=== PATIENT | male | born 1945 | race Caucasian/White ===

== ENCOUNTER → 2016-09-20 | Outpatient (CLI) | payer MEDICARE, MEDICAID ==
[~2016-09-20] MED LIST: BUDE10.2 IH; GLIP-30 PO; LISI1TAB6 PO; METF1000 PO; PANT40TA2 PO; RT-ALBUINH IH; SIMV40TA4 PO; SUCR1TAB36 PO
--- NOTE | 2016-09-20 14:08 | Diagnostic Imaging Report ---
EXAMINATION: Renal ultrasound. INDICATION: History of left renal cell carcinoma, status post left nephrectomy. FINDINGS: The right kidney is 11 cm in length with no hydronephrosis or focal lesion. The urinary bladder appears unremarkable. The left nephrectomy bed demonstrates no underlying mass or fluid collection. IMPRESSION: Post left nephrectomy changes. Normal appearance of the right kidney. Dictated by: Dictated on workstation # [id number]
== END ==
LOC: RAD 13:32
PROVIDERS: ATTEND Nurse Practitioner
DX: N18.3 Chronic kidney disease, stage 3 (moderate) (principal); E11.22 Type 2 diabetes mellitus with diabetic chronic kidney disease; E78.5 Hyperlipidemia, unspecified; J44.9 Chronic obstructive pulmonary disease, unspecified; K21.9 Gastro-esophageal reflux disease without esophagitis; B17.10 Acute hepatitis C without hepatic coma
CPT/HCPCS: 76770

== ENCOUNTER → 2017-07-22 | Outpatient (CLI) | payer MEDICARE, MEDICAID ==
--- NOTE | 2017-07-22 12:26 | Diagnostic Imaging Report ---
CLINICAL INDICATION: Patient with chronic low back pain with left leg pain, numbness and tingling. No known injury. EXAM: MRI of the lumbar spine performed without IV contrast. Sequences include sagittal T2, sagittal T1, sagittal T2 fat-sat, and axial T2. COMPARISON: MRI of the lumbar spine without contrast dated 10/24/2015. FINDINGS: Lumbar spine has normal alignment with no acute fracture or dislocation. There is small amount of Modic type I degenerative signal changes involving the L5-S1 level. Otherwise, the lumbar vertebra have normal T1-T2 signal. Limited visualization of the distal thoracic spinal cord, conus medullaris, and cauda equina nerve roots are unremarkable. Conus medullaris tip is seen at the L1-L2 intervertebral level. There is no significant paraspinal soft tissue abnormality. The left kidney is not seen and may be surgically absent, as prior MRI showed a mass on the kidney. There is multilevel lumbar spine degenerative disease with hypertrophic spurs and facet arthropathy seen. T12-L1: There is interval development of minimal ligamentum flavum buckling. There is no significant central spinal canal or neural foramen narrowing. L1-L2: There is no significant change to the diffuse disc bulge with mild loss of intervertebral disc height. There is progression of ligamentum flavum buckling with mild bilateral facet arthropathy. There is mild central canal narrowing which has progressed. There is mild right neural foramen narrowing which is stable and no significant left neural foramen narrowing. L2-L3: There is minimal ligamentum flavum buckling. There is a stable mild diffuse disc bulge with hypertrophic anterior spurs. There is slight increased size of the small Schmorl's node involving the inferior L2 endplate. There is mild central canal narrowing which has progressed. There is mild to moderate right neural foramen narrowing which has slightly progressed and mild left neural foramen narrowing which has slightly progressed. L3-L4: There is development of mild ligamentum flavum buckling. There is moderate bilateral facet arthropathy again seen. There is no significant change to the diffuse disc bulge with disc spurs extending into the foraminal regions. There is moderate bilateral neural foramen narrowing which is stable. There is mild central canal narrowing. L4-5: There is interval increased size of the diffuse disc bulge with increased disc spurs in the foraminal regions bilaterally. There is bilateral facet arthropathy and progression of ligamentum flavum buckling. There is severe central canal narrowing which has progressed. There is severe bilateral neural foramen narrowing which has slightly progressed on the right, but is grossly stable on the left. L5-S1: There is moderate to severe bilateral facet arthropathy/hypertrophy. Stable mild disc bulging in the foraminal regions bilaterally (left side more than the right) there is mild right neural foramen narrowing and severe left neural foramen narrowing which is not significantly changed. There is no significant central canal narrowing. IMPRESSION: 1: There is slight progression of multilevel lumbar spine degenerative disc disease with the L4-L5 level progressed the most. This is described in detail above. 2: Likely surgically absent left kidney in the interim. Dictated by: Dictated on workstation # [id number]
== END ==
LOC: RAD 11:08
PROVIDERS: ATTEND Nurse Practitioner Family
DX: M48.07 Spinal stenosis, lumbosacral region (principal); M51.17 Intervertebral disc disorders with radiculopathy, lumbosacral region; M47.26 Other spondylosis with radiculopathy, lumbar region; M46.86 Other specified inflammatory spondylopathies, lumbar region
CPT/HCPCS: 72148

== ENCOUNTER 2018-02-09 14:18 | Observation (INO) | payer MEDICARE, MEDICAID ==
[~2018-02-09] VITALS: Ht 167.6 cm; Wt 73.9 kg
[~2018-02-09 14:18] MED LIST changes: +METF-399 PO; -METF1000 PO
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
--- OUTSIDE RECORDS SUMMARY | 2018-02-09 14:29 | XMS REPORT ---
Author Author RIANNA BRADY Organization [facility] Address [address] [place] [address] Care Team Providers Care Wood Room Hand Name Role Phone BRADYVANE FajardoELE Unavailable PROBLEMS Type Condition ICD9-CM Code ABA08-WB Code Onset Dates Condition Status SNOMED Code Problem Hallux rigidus M20.20 Active 657859249 Problem Other hammer toe(s) (acquired), right foot M20.41 Active 343413440 Problem Other hammer toe(s) (acquired), left foot M20.42 Active 82516063 Problem Chronic periodontitis K05.30 Active 0738861 Problem Vitamin D deficiency E55.9 Active 57531676 Problem Osteoarthritis of spine with radiculopathy, lumbar region M47.26 Active 907387311 Problem Stage 3 chronic kidney disease N18.3 Active 867662414 Problem Ventral hernia without obstruction or gangrene K43.9 Active 416229215 Problem Type 2 diabetes mellitus with diabetic neuropathy E11.40 Active 6226527444217 Problem DM neuro manif type II E11.49 Active 83379541 Problem Hallux valgus (acquired), right foot M20.11 Active 491883873 Problem Hyperlipidemia E78.5 Active 45212386 Problem Type 2 diabetes mellitus with hyperglycemia E11.65 Active [id number] Problem Thrombocytopenia D69.6 Active 270435799 Problem Peripheral neuropathy G62.9 Active 06694938 Problem GERD (gastroesophageal reflux disease) K21.9 Active 483132239 Problem OM (onychomycosis) B35.1 Active 557274993 Problem Hepatitis C B19.20 Active 30128495 Problem Hepatic lesion K76.9 Active 313038963 Problem COPD (chronic obstructive pulmonary disease) J44.9 Active 18396965 Problem Cirrhosis of liver without ascites, unspecified hepatic cirrhosis type K74.60 Active 31249834 ALLERGIES No Information ENCOUNTERS Encounter Location Date Diagnosis [facility] [address] [facility] [id number] [address] Nov, [facility] [id number] [place] [address] 16696- 1593 Oct, Type 2 diabetes mellitus with diabetic neuropathy E11.40 ; Elevated serum creatinine R79.89 ; Peripheral neuropathy G62.9 ; COPD (chronic obstructive pulmonary disease) J44.9 ; Hyperlipidemia E78.5 ; GERD ( gastroesophageal reflux disease) K21.9 and 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.3720 [facility] [id number] [place] [address] 12451- 5479 August, Onychomycosis B35.1 and Type 2 diabetes mellitus with diabetic neuropathy E11.40 [place] [id number] [place] [address] 25234- 7348 August, Type 2 diabetes mellitus with hyperglycemia E11.65 [place] [address] [address] [id number] [place] [address] 28777- 8685 August, Chronic kidney disease, stage III (moderate) N18.3 [place] [address] [id number] [place] [address] 13485- 5340 August, Chronic kidney disease, stage III (moderate) N18.3 [facility] [id number] [place] [address] [id number] Jul, Dental examination Z01.20 [facility] [id number] [place] [address] 84528- 6401 Jun, [facility] [id number] [place] [address] 39453- 6429 Jun, [facility] [id number] [place] [address] 46812- 1979 Jun, [place] [address] [id number] [place] [address] 21923- 7250 Jun, Chronic periodontitis K05.30 ; Dental caries K02.9 and Dental examination Z01.20 [facility] [id number] [place] [address] 40268- 9998 Jun, Type 2 diabetes mellitus with hyperglycemia [...] Ventral hernia without obstruction or gangrene K43.9 [place] [address] 78901- 7123 Jun, COPD (chronic obstructive pulmonary disease) J44.[address] 77125- 9970 Jun, Type 2 diabetes mellitus with diabetic neuropathy E11.40 and Onychomycosis B35.[address] 24882- 9133 May, Hyperlipidemia E78.5 ; Cirrhosis of liver without ascites, unspecified hepatic cirrhosis type K74.60 ; Renal cell carcinoma, left C64.2 ; Hepatic lesion K76.9 ; Hepatitis C B19.20 ; Type 2 diabetes mellitus with hyperglycemia E11.65 and COPD (chronic obstructive pulmonary disease) J44.9 [place] [id number] [place] [address] 67468- 4947 May, Hyperlipidemia E78.5 and Chronic kidney disease, stage III ( moderate) N18.3 [place] [address] 91109- 3254 Apr, Type 2 diabetes mellitus with diabetic neuropathy E11.40 ; Hyperlipidemia E78.5 ; COPD (chronic obstructive pulmonary disease) J44.9 and Osteoarthritis of spine with radiculopathy, lumbar region M47.26 [id number] [place] [address] 79976- 8520 Apr, [facility] [id number] [place] [address] 95114- 5001 Mar, Type 2 diabetes mellitus with diabetic neuropathy E11.40 ; Hyperlipidemia E78.5 ; COPD (chronic obstructive pulmonary disease) J44.9 and Osteoarthritis of spine with radiculopathy, lumbar region M47.26 [facility] [id number] [place] [address] 06956- 5495 Mar, Onychomycosis B35.1 and DM neuro manif type II E11.49 [place] [address] 82978- 6732 Mar, Hepatitis C B19.20 [place] [id number] [place] [address] 15957- 8345 Mar, Hepatitis C B19.20 [place] [id number] [place] [address] 49024- 6848 Jan, COPD (chronic obstructive pulmonary disease) J44.9 [place] [id number] [place] [address] 42108- 0817 Jan, [place] [id number] [place] [address] 25050- 0003 Nov, Elevated serum creatinine R79.89 [place] [id number] [place] [address] 57946- 9213 Nov, Elevated serum creatinine R79.89 [place] [address] [id number] [place] [address] 36019- 6145 Nov, [place] [address] [id number] [place] [address] 57114- 7686 Nov, Onychomycosis B35.1 ; Hallux valgus (acquired), right foot M20.11 and DM neuro manif type II E11.49 [place] [address] [id number] [place] [address] 21529- 8976 Nov, [place] [id number] [place] [address] 44040- 6024 Oct, Type 2 diabetes mellitus with hyperglycemia E11.65 ; Hyperlipidemia E78.5 ; COPD (chronic obstructive pulmonary disease) J44.9 and GERD (gastroesophageal reflux disease) K21.9 [place] [id number] [place] [address] 82840- 1080 Sep, COPD (chronic obstructive pulmonary disease) J44.9 ; Type 2 diabetes mellitus with hyperglycemia E11.65 ; Hyperlipidemia E78.5 and GERD ( gastroesophageal reflux disease) K21.9 [place] [address] [id number] [place] [address] 97842- 1135 August, [place] [address] [place] [id number] [place] [address] 52528- 8500 August, Type 2 diabetes mellitus with hyperglycemia E11.[address] 25347- 4617 August, Onychomycosis B35.1 ; Other hammer toe(s) (acquired), right foot M20.41 and Type 2 diabetes mellitus with diabetic neuropathy E11.40 [place] [id number] [place] [address] 53660- 6760 Jul, Elevated serum creatinine R79.89 [place] [id number] [place] [address] 99077- 6405 Jul, COPD (chronic obstructive pulmonary disease) J44.9 and Ventral hernia without obstruction or gangrene K43.9 [place] [address] [address] [id number] [place] [address] 11326- 9160 Jul, Elevated serum creatinine R79.89 [place] [address] [id number] [place] [address] 19201- 2464 Jun, [place] [address] [id number] [place] [address] 46792- 8445 Jun, [place] [address] [place] [address]- 5031 Jun, Type 2 diabetes mellitus with hyperglycemia E11.65 ; Hyperlipidemia E78.5 ; GERD (gastroesophageal reflux disease) K21.9 and Hepatitis C B19.20 [place] [address] 31996- 7817 Jun, Hepatitis C B19.20 [place] [address] 91900- 3212 Jun, Type 2 diabetes mellitus with hyperglycemia E11.65 ; Hyperlipidemia E78.5 ; COPD (chronic obstructive pulmonary disease) J44.9 ; GERD (gastroesophageal reflux disease) K21.9 ; Peripheral neuropathy G62.9 and Hepatitis C B19.20 [place] [address] 38843- 4997 Jun, Onychomycosis B35.1 ; Hallux rigidus M20.20 ; Other hammer toe(s) (acquired), left foot M20.42 and Other hammer toe(s) (acquired), right foot M20.41 [place] [address] 40517- 4961 Jun, Type 2 diabetes mellitus with hyperglycemia E11.65 and Hyperlipidemia E78.5 [place] [address] 21508- 0994 Mar, Hepatitis C B19.20 ; Hepatic lesion K76.9 and Cirrhosis of liver without ascites, unspecified hepatic cirrhosis type K74.60 [place] [address] [address] [id number] [place] [address] 16958- 9340 Mar, Onychomycosis B35.1 and Hallux rigidus M20.20 [place] [address] 23426- 1644 Dec, [address] 67727- 0876 Dec, Type 2 diabetes mellitus with hyperglycemia E11.65 ; Right leg injury, initial encounter S89.91XA ; Hyperlipidemia E78.5 ; COPD (chronic obstructive pulmonary disease) J44.9 ; GERD (gastroesophageal reflux disease) K21.9 ; Insomnia due to medical condition G47.01 and Renal cell carcinoma, left C64.2 [place] [address] 88029- 6399 Dec, [place] [address] 35587- 4769 Nov, Onychomycosis B35.1 and DM neuro manif type II E11.49 [place] [address] 65430- 5392 Oct, Hepatitis C B19.[address] 59512- 1497 Oct, Hepatic lesion K76.9 and Cirrhosis of liver without ascites , unspecified hepatic cirrhosis type K74.[address] 36769- 7532 Sep, Renal mass N28.89 ; Hepatic lesion K76.9 and Renal cell carcinoma, left C64.[address] 86446- 6338 Sep, Lesion of liver K76.[address] 44544- 9247 Sep, Renal mass, right N28.[address] 59897- 0232 Sep, Osteoarthritis of spine with radiculopathy, lumbar region M47.[address] 15028- 2151 August, Type 2 diabetes mellitus with hyperglycemia E11.65 ; Hyperlipidemia E78.5 ; Peripheral neuropathy G62.9 ; COPD (chronic obstructive pulmonary disease) J44.9 ; Dorsalgia, unspecified M54.9 ; Pain of left leg M79.605 and Foot pain, left M79.672 [place] [address] 19442- 9217 Jun, Hepatitis C B19.20 [place] [address] 50452- 1019 Jun, Onychomycosis B35.1 ; Hallux rigidus M20.20 and DM neuro manif type II E11.49 [place] [address] 93902- 9192 Jun, Hepatitis C B19.20 and Erectile dysfunction 607.[address] 77951- 2309 Jun, Type 2 diabetes mellitus with hyperglycemia E11.[address] 67615- 5666 Jun, Hepatitis C B19.20 [place] [address] 31389- 1654 Jun, [place] [address] 35781- 8275 Jun, Type 2 diabetes mellitus with hyperglycemia E11.65 [place] [address] 74961- 2474 Jun, Type 2 diabetes mellitus with hyperglycemia E11.65 ; Hyperlipidemia E78.5 ; COPD (chronic obstructive pulmonary disease) J44.9 and Hepatitis C B19.20 [place] [address] 44989- 8562 Jun, Type 2 diabetes mellitus with hyperglycemia E11.65 ; General medical exam Z00.00 ; Hyperlipidemia E78.5 ; COPD (chronic obstructive pulmonary disease) J44.9 ; Hepatitis C B19.20 ; GERD (gastroesophageal reflux disease) K21.9 ; OM (onychomycosis) B35.1 and Peripheral neuropathy G62.[address] 55566- 0919 Apr, COPD (chronic obstructive pulmonary disease) J44.9 ; Depression F32.9 ; Hyperlipidemia E78.5 and Type 2 diabetes mellitus with hyperglycemia E11.65 [facility] [id number] [place] [address] 85763- 8703 Apr, [facility] [id number] [place] [address] 15724- 6154 Mar, Type 2 diabetes mellitus with hyperglycemia E11.65 [facility] [id number] [place] [address] 40402- 7006 Mar, [facility] [id number] [place] [address] 93634- 4887 Mar, Type 2 diabetes mellitus with hyperglycemia E11.65 [facility] [id number] [place] [address] 26625- 4125 Jan, Type 2 diabetes mellitus with hyperglycemia E11.65 ; Type 2 diabetes mellitus with diabetic neuropathy E11.40 ; Chronic hepatitis C B18.2 ; COPD (chronic obstructive pulmonary disease) J44.9 ; Depression F32.9 and Black stool K92.1 [place] [address] [address] [id number] [place] [address] 47207- 4569 Jan, [facility] [id number] [place] [address] 11445- 2055 Jan, [place] [address] [address] [id number] [place] [address] 39100- 8733 Dec, [facility] [id number] [place] [address] 05557- 0681 Nov, Erectile dysfunction 607.84 [place] [address] [address] [id number] [place] [address] 38814- 9385 Nov, Depressive disorder, not elsewhere classified 311 [facility] [id number] [place] [address] 67279- 9268 Nov, Depressive disorder, not elsewhere classified 311 [facility] [id number] [place] [address] 20532- 7707 Nov, Pyelonephritis 590.80 [facility] [id number] [place] [address] 98059- 6544 Oct, Pyelonephritis 590.80 [facility] [id number] [place] [address] 62897- 4604 Oct, Right inguinal pain 789.09 [facility] [id number] [place] [address] 66881- 1702 Oct, [facility] [id number] [place] [address] 83941- 1601 Oct, Depressive disorder, not elsewhere classified 311 [facility] [address] 36815- 8509 Sep, Depressive disorder, not elsewhere classified 311 and No condition on Freeman II V71.09 [facility] [id number] [place] [address] 09721- 7987 Sep, Diabetes mellitus without mention of complication, type II or unspecified type, uncontrolled 250.02 and Right inguinal pain 789.09 [facility] [id number] [place] [address] 54785- 0031 Jul, [facility] [id number] [place] [address] 94524- 3555 Jul, [facility] [id number] [place] [address] 13478- 2553 May, [facility] [id number] [place] [address] 85292- 3375 Mar, [facility] [id number] [place] [address] 07318- 5773 Mar, [facility] [id number] [place] [address] 18481- 5024 Dec, [facility] [id number] [place] [address] 39534- 3928 Dec, [facility] [place] [facility] [address] [id number] [place] [address]- 8555 14 Oct, 2013 [facility] [place] [facility] [address] [id number] [place] [address]- 5652 14 Oct, 2013 [facility] [place] [facility] [address] [id number] [place] [address]- 6884 Oct, [facility] [place] [facility] [address] [id number] [place] [address]- 9439 Oct, [facility] [place] [facility] [address] [id number] [place] [address]- 0722 Sep, [facility] [place] [facility] [address] [id number] [place] [address]- 3994 Sep, [facility] [place] [facility] [address] [id number] [place] [address]- 8531 Jun, [facility] [place] [facility] [address] [id number] [place] [address]- 4020 Jun, [facility] [place] [facility] [address] [id number] [place] [address]- 6014 Jun, [facility] [place] [facility] [address] [id number] [place] [address]- 5422 Jun, [facility] [place] [facility] [address] [id number] [place] [address]- 5406 Jun, [facility] [place] [facility] [address] [id number] [place] [address]- 2445 Jun, [facility] [place] [facility] [address] [id number] [place] [address]- 8712 Jun, [facility] [place] [facility] [address] [id number] [place] [address]- 6301 Jun, [facility] [place] [facility] [address] [id number] [place] [address]- 2899 Apr, [facility] [place] [facility] [address] [id number] [place] [address]- 8359 Apr, [facility] [place] [facility] [address] [id number] [place] [address]- 6835 Apr, [facility] [place] [facility] [address] [id number] [place] [address]- 0821 Apr, [facility] [place] [facility] [address] [facility] [id number] [place] [address]- 2226 Apr, [facility] [place] [facility] [address] [id number] [place] [address]- 4232 Apr, [facility] [place] [facility] [address] [id number] [place] [address]- 3797 Apr, [facility] [place] [facility] [address] [id number] [place] [address]- 9515 Apr, [facility] [place] [facility] [address] [id number] [place] [address]- 0640 Apr, [facility] [place] [facility] [address] [id number], [place] [address]- 8332 Mar, [facility] [place] [facility] [address] [id number], [place] [address]- 0624 Mar, [facility] [place] [facility] [address] [id number], [place] [address]- 3511 Mar, [facility] [place] [facility] [address] [id number], [place] [address]- 9058 Mar, [facility] [place] [facility] [address] [id number], [place] [address]- 1037 Mar, [facility] [place] [facility] [address] [id number], [place] [address]- 4020 Mar, [facility] [place] [facility] [address] [id number], [place] [address]- 4242 Mar, [facility] [place] [facility] [address] [facility] [id number] 4183 Mar, [facility] [place] [facility] [address] [facility] [id number] [place] 9756 Mar, [facility] [address] [facility] [id number], [place] [address]- 0194 Mar, [facility] [address] [facility] [id number] 4330 Mar, [facility] [address] [facility] [id number] 2279 Mar, [facility] [address] [facility] [id number], [place] [address]- 5311 Mar, [facility] [address] [facility] [id number], [place] [address]- 6332 Mar, IMMUNIZATIONS No Known Immunizations SOCIAL HISTORY Never Assessed REASON FOR VISIT Prior Authorization PLAN OF CARE VITAL SIGNS MEDICATIONS Medication Instructions Dosage Frequency Start Date End Date Duration Status Ventolin HFA 108 (90 Base) MCG/ACT Inhalation every 6 hrs 2 puffs as needed 6h Jun, 30 days Active RESULTS No Results PROCEDURES No [...]
--- OUTSIDE RECORDS SUMMARY | 2018-02-09 14:30 | XMS REPORT ---
Author Author RIANNA BRADY Organization [facility] Address [address] [place] [address] Care Team Providers Care Material Cutter Name Role Phone BRADYVANE FajardoELE Unavailable PROBLEMS Type Condition ICD9-CM Code DYZ10-NK Code Onset Dates Condition Status SNOMED Code Problem Other hammer toe(s) (acquired), left foot M20.42 Active 47756852 Problem Type 2 diabetes mellitus with diabetic neuropathy E11.40 Active 9680691224738 Problem Other hammer toe(s) (acquired), right foot M20.41 Active 920319512 Problem Chronic periodontitis K05.30 Active 5240522 Problem Vitamin D deficiency E55.9 Active 95642685 Problem Chronic kidney disease, stage III (moderate) N18.3 Active 876141181 Problem Hallux valgus (acquired), right foot M20.11 Active 252997515 Problem Ventral hernia without obstruction or gangrene K43.9 Active 602842974 Problem Osteoarthritis of spine with radiculopathy, lumbar region M47.26 Active 341018921 Problem DM neuro manif type II E11.49 Active 24101394 Problem Type 2 diabetes mellitus with hyperglycemia E11.65 Active 076377317770438 Problem Hepatitis C B19.20 Active 30955949 Problem Peripheral neuropathy G62.9 Active 55607212 Problem Hyperlipidemia E78.5 Active 31329077 Problem OM (onychomycosis) B35.1 Active 729543322 Problem Hepatic lesion K76.9 Active 040629148 Problem COPD (chronic obstructive pulmonary disease) J44.9 Active 10137246 Problem Cirrhosis of liver without ascites, unspecified hepatic cirrhosis type K74.60 Active 43962519 Problem GERD (gastroesophageal reflux disease) K21.9 Active 234067195 Problem Hallux rigidus M20.20 Active 278190796 ALLERGIES No Information ENCOUNTERS Encounter Location Date Diagnosis [facility] [address] [facility] [id number] [address] August, [facility] [address] [facility] [id number] [id number] Jul, Dental examination Z01.20 [place] [address], [place] [address] Jun, [facility] [address], [place] [address] Jun, [facility] [address] [place] [id number] [place] [address] 26780- 4957 Jun, [place] [address] [place] [address] 66083- 4509 Jun, Chronic periodontitis K05.30 ; Dental caries K02.9 and Dental examination Z01.20 [place] [address], [place] [address] Jun, Type 2 diabetes mellitus with hyperglycemia [...] Ventral hernia without obstruction or gangrene K43.9 [place] [address] [place] [id number] [address] Jun, COPD (chronic obstructive pulmonary disease) J44.9 [place] [address] [place] [id number] [place] [address]48- 4117 16 Jun, 2017 Type 2 diabetes mellitus with diabetic neuropathy E11.40 and Onychomycosis B35.1 [place] [address] [place] [address] 08793- 3081 May, Hyperlipidemia E78.5 ; Cirrhosis of liver without ascites, unspecified hepatic cirrhosis type K74.60 ; Renal cell carcinoma, left C64.2 ; Hepatic lesion K76.9 ; Hepatitis C B19.20 ; Type 2 diabetes mellitus with hyperglycemia E11.65 and COPD (chronic obstructive pulmonary disease) J44.9 [place] [address] [place] [id number] [place] [address]454[address] 1399 May, Hyperlipidemia E78.5 and Chronic kidney disease, stage III ( moderate) N18.3 [place] [address] [address] Apr, Type 2 diabetes mellitus with diabetic neuropathy E11.40 ; Hyperlipidemia E78.5 ; COPD (chronic obstructive pulmonary disease) J44.9 and Osteoarthritis of spine with radiculopathy, lumbar region M47.26 [place] [address] [address] Apr, [address] [address] Mar, Type 2 diabetes mellitus with diabetic neuropathy E11.40 ; Hyperlipidemia E78.5 ; COPD (chronic obstructive pulmonary disease) J44.9 and Osteoarthritis of spine with radiculopathy, lumbar region M47.26 [place] [address] [place] [id number] [place] [address] 75251- 8182 Mar, Onychomycosis B35.1 and DM neuro manif type II E11.49 [place] [address] [address]- 34[address] Mar, Hepatitis C B19.[address] [address]- 1832 Mar, Hepatitis C B19.20 [place] [address] [address]- 4384 Jan, COPD (chronic obstructive pulmonary disease) J44.9 [place] [address] [address]87- 3068 Jan, [place] [address] [place] [id number] [place] [address] 41338- 2231 Nov, Elevated serum creatinine R79.89 [place] [address] [place] [id number] [place] [address] 50202- 3121 Nov, Elevated serum creatinine R79.89 [place] [address] [place] [id number] [place] [address] 67925- 8902 Nov, [place] [address] [place] [id number] [place] [address] 36087- 1979 Nov, Onychomycosis B35.1 ; Hallux valgus (acquired), right foot M20.11 and DM neuro manif type II E11.49 [place] [id number] [place] [address] 23117- 3408 Nov, [place] [id number] [place] [address] 93083- 7436 Oct, Type 2 diabetes mellitus with hyperglycemia E11.65 ; Hyperlipidemia E78.5 ; COPD (chronic obstructive pulmonary disease) J44.9 and GERD (gastroesophageal reflux disease) K21.9 [place] [id number] [place] [address] 41317- 9444 Sep, COPD (chronic obstructive pulmonary disease) J44.9 ; Type 2 diabetes mellitus with hyperglycemia E11.65 ; Hyperlipidemia E78.5 and GERD ( gastroesophageal reflux disease) K21.9 [place] [address] [place] [address] 31386- 2349 August, [place] [id number] [place] [address] 87765- 2137 August, Type 2 diabetes mellitus with hyperglycemia E11.65 [place] [id number] [place] [address] 21127- 8842 August, Onychomycosis B35.1 ; Other hammer toe(s) (acquired), right foot M20.41 and Type 2 diabetes mellitus with diabetic neuropathy E11.[address] [place] [address] 27098- 4468 Jul, Elevated serum creatinine R79.89 [place] [address] [place] [id number] [place] [address] 94899- 9798 Jul, COPD (chronic obstructive pulmonary disease) J44.9 and Ventral hernia without obstruction or gangrene K43.9 [place] [address] 14857- 7208 Jul, Elevated serum creatinine R79.89 [place] [address] [place] [id number] [place] [address] 10026- 2986 Jun, [place] [address] 65[address]- 8761 Jun, [place] [address] [place] [id number] [place] [address] 27527- 8487 Jun, Type 2 diabetes mellitus with hyperglycemia E11.65 ; Hyperlipidemia E78.5 ; GERD (gastroesophageal reflux disease) K21.9 and Hepatitis C B19.20 [place] [address] [place] [id number] [place] [address] 99646- 1896 Jun, Hepatitis C B19.20 [place] [address] [place] [id number] [place] [address] 10935- 6352 Jun, Type 2 diabetes mellitus with hyperglycemia E11.65 ; Hyperlipidemia E78.5 ; COPD (chronic obstructive pulmonary disease) J44.9 ; GERD (gastroesophageal reflux disease) K21.9 ; Peripheral neuropathy G62.9 and Hepatitis C B19.20 [place] [address] [place] [id number] [place] [address] 79796- 3501 Jun, Onychomycosis B35.1 ; Hallux rigidus M20.20 ; Other hammer toe(s) (acquired), left foot M20.42 and Other hammer toe(s) (acquired), right foot M20.41 [place] [address] [place] [id number] [place] [address] 66207- 0094 Jun, Type 2 diabetes mellitus with hyperglycemia E11.65 and Hyperlipidemia E78.5 [place] [address] [place] [id number] [place] [address] 34768- 1675 Mar, Hepatitis C B19.20 ; Hepatic lesion K76.9 and Cirrhosis of liver without ascites, unspecified hepatic cirrhosis type K74.60 [place] [address] [place] [id number] [place] [address] 98194- 2067 Mar, Onychomycosis B35.1 and Hallux rigidus M20.20 [place] [address] [place] [id number] [place] [address] 74060- 0558 Dec, [place] [address] 17729- 5910 Dec, Type 2 diabetes mellitus with hyperglycemia E11.65 ; Right leg injury, initial encounter S89.91XA ; Hyperlipidemia E78.5 ; COPD (chronic obstructive pulmonary disease) J44.9 ; GERD (gastroesophageal reflux disease) K21.9 ; Insomnia due to medical condition G47.01 and Renal cell carcinoma, left C64.2 [place] [address] 57835- 8266 Dec, [place] [address] 59989- 0656 Nov, Onychomycosis B35.1 and DM neuro manif type II E11.49 [place] [address] [place] [id number] [place] [address] 38342- 2330 Oct, Hepatitis C B19.20 [place] [address] [place] [id number] [place] [address] 28115- 4500 Oct, Hepatic lesion K76.9 and Cirrhosis of liver without ascites , unspecified hepatic cirrhosis type K74.60 [place] [address] [place] [id number] [place] [address] 37607- 0835 Sep, Renal mass N28.89 ; Hepatic lesion K76.9 and Renal cell carcinoma, left C64.2 [place] [address] [place] [id number] [place] [address] 57187- 9078 Sep, Lesion of liver K76.9 [place] [address] 37073- 0286 Sep, Renal mass, right N28.89 [place] [address] 52833- 5801 Sep, Osteoarthritis of spine with radiculopathy, lumbar region M47.26 [place] [address] 30534- 8107 August, Type 2 diabetes mellitus with hyperglycemia E11.65 ; Hyperlipidemia E78.5 ; Peripheral neuropathy G62.9 ; COPD (chronic obstructive pulmonary disease) J44.9 ; Dorsalgia, unspecified M54.9 ; Pain of left leg M79.605 and Foot pain, left M79.[address] [address]37- 2860 Jun, Hepatitis C B19.20 [place] [address] 63954- 4652 Jun, Onychomycosis B35.1 ; Hallux rigidus M20.20 and DM neuro manif type II E11.49 [place] [id number] [place] [address] 99309- 6164 Jun, Hepatitis C B19.20 and Erectile dysfunction 607.84 [place] [address] [place] [id number] [place] [address] 98957- 9219 Jun, Type 2 diabetes mellitus with hyperglycemia E11.65 [place] [address] [place] [id number] [place] [address] 04220- 1861 Jun, Hepatitis C B19.20 [place] [address] [place] [id number] [place] [address] 10968- 4027 Jun, [place] [address] [place] [id number] [place] [address] 58303- 7764 Jun, Type 2 diabetes mellitus with hyperglycemia E11.65 [place] [address] [place] [id number] [place] [address] 08788- 9949 Jun, Type 2 diabetes mellitus with hyperglycemia E11.65 ; Hyperlipidemia E78.5 ; COPD (chronic obstructive pulmonary disease) J44.9 and Hepatitis C B19.20 [place] [address] 22729- 3425 Jun, Type 2 diabetes mellitus with hyperglycemia E11.65 ; General medical exam Z00.00 ; Hyperlipidemia E78.5 ; COPD (chronic obstructive pulmonary disease) J44.9 ; Hepatitis C B19.20 ; GERD (gastroesophageal reflux disease) K21.9 ; OM (onychomycosis) B35.1 and Peripheral neuropathy G62.9 [place] [address] [place] [id number] [place] [address] 41808- 2428 Apr, COPD (chronic obstructive pulmonary disease) J44.9 ; Depression F32.9 ; Hyperlipidemia E78.5 and Type 2 diabetes mellitus with hyperglycemia E11.65 [place] [address] [place] [id number] [place] [address] 48245- 5821 Apr, [place] [address] 94524- 3178 Mar, Type 2 diabetes mellitus with hyperglycemia E11.65 [place] [address] 74108- 9630 Mar, [place] [address] 96759- 6766 Mar, Type 2 diabetes mellitus with hyperglycemia E11.65 [place] [address] [place] [id number] [place] [address] 01509- 1628 Jan, Type 2 diabetes mellitus with hyperglycemia E11.65 ; Type 2 diabetes mellitus with diabetic neuropathy E11.40 ; Chronic hepatitis C B18.2 ; COPD (chronic obstructive pulmonary disease) J44.9 ; Depression F32.9 and Black stool K92.1 [place] [address] 93618- 3176 Jan, [facility] [address], [place] [address]- 0456 Jan, [facility] [address] [place] [id number] [place] [address] 754552- 6346 Dec, [facility] [address] [place] [address] 79217- 9833 Nov, Erectile dysfunction 607.84 [facility] [address] [place] [id number] [place] [address] 575193- 3988 Nov, Depressive disorder, not elsewhere classified 311 [facility] [address] [place] [id number] [place] [address] 06408- 0739 Nov, Depressive disorder, not elsewhere classified 311 [facility] [address] [place] [id number] [address]- 2474 Nov, Pyelonephritis 590.80 [facility] [address] [place] [id number] [place] [address] 81150- 8764 Oct, Pyelonephritis 590.80 [facility] [address] [place] [id number] [place] [address] 85326- 6169 Oct, Right inguinal pain 789.09 [facility] [address] [place] [address] 70250- 3330 Oct, [facility] [address], [place] [address]- 4216 Oct, Depressive disorder, not elsewhere classified 311 [facility] [address] [place] [address] 22545- 4645 Sep, Depressive disorder, not elsewhere classified 311 and No condition on Britton II V71.09 [facility] [address] [place] [id number] [place] [address] 68230- 3294 Sep, Diabetes mellitus without mention of complication, type II or unspecified type, uncontrolled 250.02 and Right inguinal pain 789.09 [facility] [address] [place] [id number] [place] [address] 51787- 0718 Jul, [facility] [place] [facility] [address] [id number] [place] [address]- 8868 Jul, [facility] [place] [facility] [address] [id number] [place] [address]- 1744 May, [facility] [place] [facility] [address] [id number] [place] [address]- 8714 Mar, [facility] [place] [facility] [address] [id number] [place] [address]- 1094 Mar, [facility] [place] [facility] [address] [id number] [place] [address]- 5450 Dec, [facility] [place] [facility] [address] [id number] [place] [address]- 2704 Dec, [facility] [place] [facility] [address] [id number] [place] [address]- 7878 Oct, [facility] [place] [facility] [address] [id number] [place] [address]- 6135 Oct, [facility] [place] [facility] [address] [id number] [place] [address]- 4253 Oct, [facility] [place] [facility] [address] [id number] [place] [address]- 6640 Oct, [facility] [place] [facility] [address] [id number] [place] [address]- 3733 Sep, [facility] [place] [facility] [address] [id number] [place] [address]- 2580 Sep, [facility] [place] [facility] [address] [id number] [place] [address]- 8949 Jun, [facility] [place] [facility] [address] [id number] [place] [address]- 6931 Jun, [facility] [place] [facility] [address] [id number] [place] [address]- 0816 Jun, [facility] [place] [facility] [address] [id number] [place] [address]- 6818 Jun, [facility] [address] [id number] [place] [address]- 4740 Jun, [facility] [address] [id number] [place] [address] Jun, [facility] [address] [id number] [place] [address]- 2566 Jun, [facility] [place] [facility] [address] [id number] [place] [address]- 1309 Jun, [facility] [address] [id number] [place] [address]13 Apr, [facility] [address] [id number] [place] [address]- 9739 Apr, [facility] [address] [id number] [place] [address]- 1796 Apr, [facility] [address] [id number] [place] [address]- 9399 Apr, [facility] [address] [id number] [place] [address]- 1635 Apr, [facility] [address] [facility] [id number] [place] [address]- 6301 Apr, [facility] [place] [facility] [address] [id number] [place] [address]- 0886 Apr, [facility] [place] [facility] [address] [id number] [place] [address]- 1514 Apr, [facility] [place] [facility] [address] [id number] [place] [address]- 7449 Apr, [facility] [place] [facility] [address] [id number] [place] [address]- 5336 Mar, [facility] [place] [facility] [address] [id number] [place] [address]- 4174 Mar, [facility] [address], [place] [address]- 0358 Mar, [facility] [address], [place] [address]- 6368 Mar, [facility] [address], [place] [address]- 9270 Mar, [facility] [address], [place] [address]- 3144 Mar, [facility] [address], [place] [address]- 4474 Mar, [facility] [address], [place] [address]- 6682 Mar, [facility] [address] [place] [address] 83850- 6080 Mar, [facility] [address] [place] [address] 98024- 9780 Mar, [facility] [address], [place] [address]- 3133 Mar, [facility] [address], [place] [address]- 3430 Mar, [facility] [address], [place] [address]- 7735 Mar, [facility] [address] [place] [address] [id number] [address]- 1796 Mar, IMMUNIZATIONS No Known Immunizations SOCIAL HISTORY [...]
--- OUTSIDE RECORDS SUMMARY | 2018-02-09 14:30 | XMS REPORT ---
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 Active Problem Diabetes mellitus without mention of complication, type II or unspecified type, uncontrolled 250.02 Active Problem Counseling on substance use and abuse V65.42 Active Problem Depressive disorder, not elsewhere classified 311 Active Problem Right inguinal pain 789.09 Active Problem Erectile dysfunction 607.84 Active Problem Polyuria 788.42 Active Problem Personal history of tobacco use, presenting hazards to health V15.82 Active Problem Polydipsia 783.5 Active Problem Loss of weight 783.21 Active Problem Diabetes with neurological manifestations, type II or unspecified type , not stated as uncontrolled 250.60 Active Problem Actinic keratosis 702.0 Active Problem Unspecified disorder of skin and subcutaneous tissue 709.9 Active Problem Chronic hepatitis C without mention of hepatic coma 070.54 Active Problem Rash and other nonspecific skin eruption 782.1 Active Problem Chronic airway obstruction, not elsewhere classified 496 Active Problem Unspecified seborrheic dermatitis 690.10 Active Problem Other abnormal blood chemistry 790.6 Active Medications Medication Code System Code Instructions Start Date End Date Status Dosage Albuterol Sulfate [facility] [address]-01 90 mcg/actuation Jan 28, 2014 2 puffs by Inhalation route every 4-6 hours as needed PRN cough or wheezing or SOB Results No Known Results Summary Purpose eClinicalWorks Submission
--- OUTSIDE RECORDS SUMMARY | 2018-02-09 14:30 | XMS REPORT ---
Author Author BRADYRIANNA Fajardo Organization [facility] Address [address] [place] [address] Care Team Providers Care Tire Debeader Name Role Phone BRADYRIANNA Fajardo Unavailable PROBLEMS Type Condition ICD9-CM Code EJN53-MG Code Onset Dates Condition Status SNOMED Code Problem Cirrhosis of liver without ascites, unspecified hepatic cirrhosis type K74.60 Active 54979428 Problem Insomnia due to medical condition G47.01 Active 93868431 Problem Hallux rigidus M20.20 Active 837743949 Problem Hallux valgus (acquired), right foot M20.11 Active 075582867 Problem Dermatochalasis of right eye, unspecified eyelid H02.833 Active 429839979 Problem DM neuro manif type II E11.49 Active 81393727 Problem Hypermetropia, bilateral H52.03 Active 42475629 Problem Thrombocytopenia D69.6 Active 274225248 Problem Other hammer toe(s) (acquired), right foot M20.41 Active 556190691 Problem Other hammer toe(s) (acquired), left foot M20.42 Active 40354058 Problem Ventral hernia without obstruction or gangrene K43.9 Active 254636441 Problem Type 2 diabetes mellitus with diabetic neuropathy E11.40 Active 2747471702178 Problem COPD (chronic obstructive pulmonary disease) J44.9 Active 95789850 Problem GERD (gastroesophageal reflux disease) K21.9 Active 495531059 Problem Vitamin D deficiency E55.9 Active 77416714 Problem Hepatitis C B19.20 Active 92250262 Problem Hyperlipidemia E78.5 Active 88247081 Problem OM (onychomycosis) B35.1 Active 024742738 Problem Arcus senilis of both eyes H18.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 Active 599085189 Problem Type 2 diabetes mellitus with hyperglycemia E11.65 Active 392569431814617 Problem Renal cell carcinoma, left C64.2 Active 442122451 Problem Presbyopia OU H52.4 Active 32758065 Problem Peripheral neuropathy G62.9 Active 35851596 Problem Hepatic lesion K76.9 Active 069515622 ALLERGIES No Information SOCIAL HISTORY Never Assessed PLAN OF CARE VITAL SIGNS MEDICATIONS Medication Instructions Dosage Frequency Start Date End Date Duration Status Actos 15 mg Orally Once a day 1 tablet 24h August, 30 day(s) Active RESULTS No Results PROCEDURES No Known procedures IMMUNIZATIONS No Known Immunizations MEDICAL (GENERAL) HISTORY [...]
--- OUTSIDE RECORDS SUMMARY | 2018-02-09 14:30 | XMS REPORT ---
Author Author RIANNA BRADY Organization [facility] Address [address] [place] [address] Care Team Providers Care Domestic Violence Counselor Name Role Phone BRADYVANE FajardoELE Unavailable PROBLEMS Type Condition ICD9-CM Code LZI69-AE Code Onset Dates Condition Status SNOMED Code Problem Other hammer toe(s) (acquired), left foot M20.42 Active 94113746 Problem Type 2 diabetes mellitus with diabetic neuropathy E11.40 Active 0296605397515 Problem Other hammer toe(s) (acquired), right foot M20.41 Active 504722907 Problem Chronic periodontitis K05.30 Active 0363696 Problem Vitamin D deficiency E55.9 Active 62244119 Problem Chronic kidney disease, stage III (moderate) N18.3 Active 716181382 Problem Thrombocytopenia D69.6 Active 892398297 Problem Hallux valgus (acquired), right foot M20.11 Active 342755637 Problem Ventral hernia without obstruction or gangrene K43.9 Active 354051916 Problem Osteoarthritis of spine with radiculopathy, lumbar region M47.26 Active 719760823 Problem DM neuro manif type II E11.49 Active 73420015 Problem Type 2 diabetes mellitus with hyperglycemia E11.65 Active 763746752809354 Problem Hepatitis C B19.20 Active 49362174 Problem Peripheral neuropathy G62.9 Active 70380181 Problem Hyperlipidemia E78.5 Active 84567577 Problem OM (onychomycosis) B35.1 Active 177499075 Problem Hepatic lesion K76.9 Active 781353961 Problem COPD (chronic obstructive pulmonary disease) J44.9 Active 33071806 Problem Cirrhosis of liver without ascites, unspecified hepatic cirrhosis type K74.60 Active 94228196 Problem GERD (gastroesophageal reflux disease) K21.9 Active 029926524 Problem Hallux rigidus M20.20 Active 968652113 ALLERGIES No Information ENCOUNTERS Encounter Location Date Diagnosis [facility] [address] [facility] [id number], [place] [address] Nov, [facility] [id number] [place] [address] 722844- 4763 Oct, [facility] [id number] [place] [address] 13126- 6415 August, Onychomycosis B35.1 and Type 2 diabetes mellitus with diabetic neuropathy E11.40 [place] [address] 483486- 7074 August, Type 2 diabetes mellitus with hyperglycemia E11.65 [place] [id number] [place] [address] 762873- 1362 August, Chronic kidney disease, stage III (moderate) N18.3 [place] [id number] [place] [address] 692849- 0355 August, Chronic kidney disease, stage III (moderate) N18.3 [facility] [id number] [place] [address] [id number] Jul, Dental examination Z01.20 [place] [id number] [place] [address] 77205- 2501 Jun, [place] [id number] [place] [address] 65267- 0885 Jun, [place] [id number] [place] [address] 83775- 4035 Jun, [place] [id number] [place] [address] 67840- 7068 Jun, Chronic periodontitis K05.30 ; Dental caries K02.9 and Dental examination Z01.20 [place] [id number] [place] [address] 67549- 9848 Jun, Type 2 diabetes mellitus with hyperglycemia [...] without obstruction or gangrene K43.9 [place] [address] 44544- 2314 Jun, COPD (chronic obstructive pulmonary disease) J44.9 [place] [address] 07940- 7107 Jun, Type 2 diabetes mellitus with diabetic neuropathy E11.40 and Onychomycosis B35.[address] [address]- 4375 May, Hyperlipidemia E78.5 ; Cirrhosis of liver without ascites, unspecified hepatic cirrhosis type K74.60 ; Renal cell carcinoma, left C64.2 ; Hepatic lesion K76.9 ; Hepatitis C B19.20 ; Type 2 diabetes mellitus with hyperglycemia E11.65 and COPD (chronic obstructive pulmonary disease) J44.9 [place] [id number] [place] [address] 15495- 0686 May, Hyperlipidemia E78.5 and Chronic kidney disease, stage III ( moderate) N18.3 [place] [address] [id number] [place] [address] 07939- 5912 Apr, Type 2 diabetes mellitus with diabetic neuropathy E11.40 ; Hyperlipidemia E78.5 ; COPD (chronic obstructive pulmonary disease) J44.9 and Osteoarthritis of spine with radiculopathy, lumbar region M47.26 [place] [id number] [place] [address] 91878- 9477 Apr, [place] [id number] [place] [address] 59705- 0461 Mar, Type 2 diabetes mellitus with diabetic neuropathy E11.40 ; Hyperlipidemia E78.5 ; COPD (chronic obstructive pulmonary disease) J44.9 and Osteoarthritis of spine with radiculopathy, lumbar region M47.26 [place] [address] 98094- 4465 Mar, Onychomycosis B35.1 and DM neuro manif type II E11.49 [place] [address] 33864- 0886 Mar, Hepatitis C B19.20 [place] [address] 77102- 9216 Mar, Hepatitis C B19.20 [place] [address] 427810- 4451 Jan, COPD (chronic obstructive pulmonary disease) J44.9 [place] [address] 18668- 5570 Jan, [place] [address] 26538- 4804 Nov, Elevated serum creatinine R79.89 [place] [address] 75957- 5443 Nov, Elevated serum creatinine R79.89 [place] [address] 25698- 5550 Nov, [place] [address] 89308- 1521 Nov, Onychomycosis B35.1 ; Hallux valgus (acquired), right foot M20.11 and DM neuro manif type II E11.49 [place] [address] 53429- 2691 Nov, [place] [address] 87292- 3327 Oct, Type 2 diabetes mellitus with hyperglycemia E11.65 ; Hyperlipidemia E78.5 ; COPD (chronic obstructive pulmonary disease) J44.9 and GERD (gastroesophageal reflux disease) K21.9 [place] [address] [id number] [place] [address] 20224- 1252 Sep, COPD (chronic obstructive pulmonary disease) J44.9 ; Type 2 diabetes mellitus with hyperglycemia E11.65 ; Hyperlipidemia E78.5 and GERD ( gastroesophageal reflux disease) K21.9 [place] [address] 38481- 2631 August, [place] [address] 40153- 0453 August, Type 2 diabetes mellitus with hyperglycemia E11.[address] 79312- 4981 August, Onychomycosis B35.1 ; Other hammer toe(s) (acquired), right foot M20.41 and Type 2 diabetes mellitus with diabetic neuropathy E11.40 [place] [address] 42667- 4933 Jul, Elevated serum creatinine R79.89 [place] [address] 16811- 5003 Jul, COPD (chronic obstructive pulmonary disease) J44.9 and Ventral hernia without obstruction or gangrene K43.9 [place] [id number] [place] [address] 53756- 5671 Jul, Elevated serum creatinine R79.89 [place] [address] [address] [id number] [place] [address] 35232- 6471 Jun, [place] [address] [address] [id number] [place] [address] 95422- 6612 Jun, [address] 63818- 9694 Jun, Type 2 diabetes mellitus with hyperglycemia E11.65 ; Hyperlipidemia E78.5 ; GERD (gastroesophageal reflux disease) K21.9 and Hepatitis C B19.20 [place] [address] 66176- 6489 Jun, Hepatitis C B19.[address] 78500- 5410 Jun, Type 2 diabetes mellitus with hyperglycemia E11.65 ; Hyperlipidemia E78.5 ; COPD (chronic obstructive pulmonary disease) J44.9 ; GERD (gastroesophageal reflux disease) K21.9 ; Peripheral neuropathy G62.9 and Hepatitis C B19.[address] 19417- 1047 Jun, Onychomycosis B35.1 ; Hallux rigidus M20.20 ; Other hammer toe(s) (acquired), left foot M20.42 and Other hammer toe(s) (acquired), right foot M20.[address] 98041- 4345 Jun, Type 2 diabetes mellitus with hyperglycemia E11.65 and Hyperlipidemia E78.[address] 53761- 9992 Mar, Hepatitis C B19.20 ; Hepatic lesion K76.9 and Cirrhosis of liver without ascites, unspecified hepatic cirrhosis type K74.[address] 18585- 2906 Mar, Onychomycosis B35.1 and Hallux rigidus M20.[address] 51595- 7983 Dec, [address] 79173- 4954 Dec, Type 2 diabetes mellitus with hyperglycemia E11.65 ; Right leg injury, initial encounter S89.91XA ; Hyperlipidemia E78.5 ; COPD (chronic obstructive pulmonary disease) J44.9 ; GERD (gastroesophageal reflux disease) K21.9 ; Insomnia due to medical condition G47.01 and Renal cell carcinoma, left C64.[address] 93498- 6798 Dec, [place] [address] [address] [id number] [place] [address] 75160- 3802 Nov, Onychomycosis B35.1 and DM neuro manif type II E11.49 [place] [address] [id number] [place] [address] 31412- 0764 Oct, Hepatitis C B19.20 [place] [address] 81609- 6298 Oct, Hepatic lesion K76.9 and Cirrhosis of liver without ascites , unspecified hepatic cirrhosis type K74.[address] 288066- 4957 Sep, Renal mass N28.89 ; Hepatic lesion K76.9 and Renal cell carcinoma, left C64.[address] 55679- 8383 Sep, Lesion of liver K76.9 [place] [address] 35602- 2753 Sep, Renal mass, right N28.[address] 37976- 4615 Sep, Osteoarthritis of spine with radiculopathy, lumbar region M47.26 [place] [address] 75620- 6523 August, Type 2 diabetes mellitus with hyperglycemia E11.65 ; Hyperlipidemia E78.5 ; Peripheral neuropathy G62.9 ; COPD (chronic obstructive pulmonary disease) J44.9 ; Dorsalgia, unspecified M54.9 ; Pain of left leg M79.605 and Foot pain, left M79.672 [place] [id number] [place] [address] 84659- 9470 Jun, Hepatitis C B19.20 [place] [address] [id number] [place] [address] 56249- 0904 Jun, Onychomycosis B35.1 ; Hallux rigidus M20.20 and DM neuro manif type II E11.[address] 06231- 4218 Jun, Hepatitis C B19.20 and Erectile dysfunction 607.84 [place] [address] 03505- 4891 Jun, Type 2 diabetes mellitus with hyperglycemia E11.65 [place] [address] 54536- 8348 Jun, Hepatitis C B19.[address] 23157- 1635 Jun, [address] 57203- 9400 Jun, Type 2 diabetes mellitus with hyperglycemia E11.[address] 90300- 2001 Jun, Type 2 diabetes mellitus with hyperglycemia E11.65 ; Hyperlipidemia E78.5 ; COPD (chronic obstructive pulmonary disease) J44.9 and Hepatitis C B19.[address] 03922- 8192 05 Jun, 2015 Type 2 diabetes mellitus with hyperglycemia E11.65 ; General medical exam Z00.00 ; Hyperlipidemia E78.5 ; COPD (chronic obstructive pulmonary disease) J44.9 ; Hepatitis C B19.20 ; GERD (gastroesophageal reflux disease) K21.9 ; OM (onychomycosis) B35.1 and Peripheral neuropathy G62.[address] 94520- 1467 Apr, COPD (chronic obstructive pulmonary disease) J44.9 ; Depression F32.9 ; Hyperlipidemia E78.5 and Type 2 diabetes mellitus with hyperglycemia E11.[address] 50427- 7215 Apr, [address] [address]- 9418 Mar, Type 2 diabetes mellitus with hyperglycemia E11.65 [facility] [id number] [place] [address] 62932- 1993 Mar, [facility] [id number] [place] [address] 56514- 7531 Mar, Type 2 diabetes mellitus with hyperglycemia E11.65 [facility] [address] 08864- 0374 Jan, Type 2 diabetes mellitus with hyperglycemia E11.65 ; Type 2 diabetes mellitus with diabetic neuropathy E11.40 ; Chronic hepatitis C B18.2 ; COPD (chronic obstructive pulmonary disease) J44.9 ; Depression F32.9 and Black stool K92.1 [place] [id number] [place] [address] 15380- 5020 Jan, [place] [id number] [place] [address] 57431- 9611 Jan, [facility] [id number] [place] [address] 93678- 3989 Dec, [place] [id number] [place] [address] 87392- 4893 Nov, Erectile dysfunction 607.84 [place] [id number] [place] [address] 28280- 0405 Nov, Depressive disorder, not elsewhere classified 311 [facility] [id number] [place] [address] 79321- 2502 Nov, Depressive disorder, not elsewhere classified 311 [place] [address] [address] [id number] [place] [address] 27718- 9069 Nov, Pyelonephritis 590.80 [place] [address] [address] [id number] [place] [address] 49430- 7507 Oct, Pyelonephritis 590.80 [facility] [id number] [place] [address] 82009- 4490 Oct, Right inguinal pain 789.09 [facility] [address] [address]- 1679 Oct, [facility] [address] [id number] [address]- 6100 Oct, Depressive disorder, not elsewhere classified 311 [facility] [id number] [place] [address] 245425- 0810 Sep, Depressive disorder, not elsewhere classified 311 and No condition on [place] II V71.09 [facility] [address] [place] [address] 025338- 6351 Sep, Diabetes mellitus without mention of complication, type II or unspecified type, uncontrolled 250.02 and Right inguinal pain 789.09 [facility] [address] [address]- 2337 Jul, [facility] [address], [place] [address]- 2253 Jul, [facility] [address] [address]- 6655 May, [facility] [id number] [place] [address] 52624- 5993 Mar, [facility] [address], [place] [address]- 1696 Mar, [facility] [address] [address]- 3446 Dec, [facility] [address], [place] [address]- 9111 Dec, [facility] [address], [place] [address]- 3157 Oct, [facility] [address] [address]- 2811 Oct, [facility] [id number] [place] [address]- 5417 Oct, [facility] [place] [facility] [address] [id number] [place] [address]- 2901 Oct, [facility] [place] [facility] [address] [id number] [place] [address]- 8064 Sep, [facility] [place] [facility] [address] [id number] [place] [address]- 6208 Sep, [facility] [place] [facility] [address] [id number] [place] [address]- 9788 Jun, [facility] [place] [facility] [address] [id number] [place] [address]- 6181 Jun, [facility] [place] [facility] [address] [id number] [place] [address]- 1465 Jun, [facility] [place] [facility] [address] [id number] [place] [address]- 3516 Jun, [facility] [place] [facility] [address] [id number] [place] [address]- 5732 Jun, [facility] [place] [facility] [address] [id number] [place] [address]- 8972 Jun, [facility] [place] [facility] [address] [facility] [id number] [place] [address]- 3855 Jun, [facility] [place] [facility] [address] [id number] [place] [address]- 9985 Jun, [facility] [place] [facility] [address] [id number] [place] [address]- 4524 Apr, [facility] [place] [facility] [address] [id number] [place] 3291 Apr, [facility] [place] [facility] [address] [id number] [place] 7156 Apr, [facility] [place] [facility] [address] [id number] [place] [address]- 3923 Apr, [facility] [place] [facility] [address] [id number] [place]- 7392 Apr, [facility] [place] [facility] [address] [id number] [place] [address]- 8213 Apr, [facility] [place] [facility] [address] [id number] [place] [address]- 2883 Apr, [facility] [place] [facility] [address] [id number] [place] [address]- 3079 Apr, [facility] [place] [facility] [address] [id number] [place] 9434 Apr, [facility] [place] [facility] [address] [id number] [place] [address]- 2669 Mar, [facility] [place] [facility] [address] [id number] [place] [address]- 8602 Mar, [facility] [place] [facility] [address] [id number] [place] [address]- 1937 Mar, [facility] [place] [facility] [address] [id number] [place] [address]- 2262 Mar, [facility] [place] [facility] [address] [id number] [place] [address]- 3269 Mar, [facility] [place] [facility] [address] [id number] [place] [address]- 5210 Mar, [facility] [place] [facility] [address] [id number], [place] [address]- 0638 Mar, [facility] [place] [facility] [address] [id number], [place] [address]- 3149 Mar, [facility] [place] [facility] [address] [id number], [place] [address]- 9759 Mar, [facility] [place] [facility] [address] [id number]- 9295 Mar, [facility] [place] [facility] [address] [id number], [place] [address]- 2546 Mar, [facility] [address] [facility] [id number] [place] [address]- 2546 Mar, [facility] [address] [facility] [id number], [place] [address]- 2546 Mar, [facility] [address] [facility] [id number] [place] [address]- 0856 Mar, IMMUNIZATIONS No Known Immunizations SOCIAL HISTORY Never Assessed REASON FOR VISIT PLAN OF CARE VITAL SIGNS MEDICATIONS Unknown [...]
--- OUTSIDE RECORDS SUMMARY | 2018-02-09 14:30 | XMS REPORT ---
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 Active 93233054 Problem Renal mass N28.89 Active 701905085 Problem Hepatic lesion K76.9 Active 048574141 Problem Hallux rigidus M20.20 Active 026163479 Problem Cirrhosis of liver without ascites, unspecified hepatic cirrhosis type K74.60 Active 37362341 Problem Peripheral neuropathy G62.9 Active 38727582 Problem Hepatitis C B19.20 Active 74632604 Problem COPD (chronic obstructive pulmonary disease) J44.9 Active 23012171 Problem OM (onychomycosis) B35.1 Active 546277005 Problem Hyperlipidemia E78.5 Active 33868074 Problem GERD (gastroesophageal reflux disease) K21.9 Active 272494884 Problem General medical exam Z00.00 Active 637606131 ALLERGIES Unknown Allergies SOCIAL HISTORY No smoking Hx information available PLAN OF CARE VITAL SIGNS MEDICATIONS Medication Instructions Dosage Frequency Start Date End Date Duration Status GlipiZIDE 5 mg Orally Once a day 1 tablet by Oral route 24h Dec, Active Simvastatin 40 mg Orally Once a day 1 tablet by Oral route 24h Dec, Active Lisinopril 5 mg Orally Once a day 1 tablet by Oral route 1 time per day 24h Dec, Active Metformin HCl 1000 MG Orally Twice a day 1 tablet with meals 12h Jun, 30 day(s) Active RESULTS No Results PROCEDURES No Known procedures IMMUNIZATIONS No Known Immunizations
--- OUTSIDE RECORDS SUMMARY | 2018-02-09 14:31 | XMS REPORT ---
Author Author BRADYRIANNA Fajardo Organization [facility] Address [address] [place] [address] Care Team Providers Care Environmental Services Project Manager Name Role Phone BRADYRIANNA Fajardo Unavailable PROBLEMS Type Condition ICD9-CM Code NNH59-VH Code Onset Dates Condition Status SNOMED Code Problem Cirrhosis of liver without ascites, unspecified hepatic cirrhosis type K74.60 Active 82130921 Problem Insomnia due to medical condition G47.01 Active 60256097 Problem Hallux rigidus M20.20 Active 626118840 Problem Hallux valgus (acquired), right foot M20.11 Active 400071877 Problem Dermatochalasis of right eye, unspecified eyelid H02.833 Active 738508087 Problem DM neuro manif type II E11.49 Active 75767828 Problem Hypermetropia, bilateral H52.03 Active 51229070 Problem Thrombocytopenia D69.6 Active 046081317 Problem Other hammer toe(s) (acquired), right foot M20.41 Active 332164950 Problem Other hammer toe(s) (acquired), left foot M20.42 Active 44128366 Problem Ventral hernia without obstruction or gangrene K43.9 Active 169135745 Problem Type 2 diabetes mellitus with diabetic neuropathy E11.40 Active 1532611374994 Problem COPD (chronic obstructive pulmonary disease) J44.9 Active 78716812 Problem GERD (gastroesophageal reflux disease) K21.9 Active 164998188 Problem Vitamin D deficiency E55.9 Active 82869110 Problem Hepatitis C B19.20 Active 69198941 Problem Hyperlipidemia E78.5 Active 51983869 Problem OM (onychomycosis) B35.1 Active 664566236 Problem Arcus senilis of both eyes H18.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 Active 112134086 Problem Type 2 diabetes mellitus with hyperglycemia E11.65 Active 712750634935573 Problem Renal cell carcinoma, left C64.2 Active 469145576 Problem Presbyopia OU H52.4 Active 07073585 Problem Peripheral neuropathy G62.9 Active 39659730 Problem Hepatic lesion K76.9 Active 637903543 ALLERGIES No Information SOCIAL HISTORY Never Assessed PLAN OF CARE VITAL SIGNS MEDICATIONS Medication Instructions Dosage Frequency Start Date End Date Duration Status Avandia 2 MG Orally Twice a day 1 tablet 12h August, 30 day(s) Active Sodium Bicarbonate 650 MG Orally 2 times a day 1/2 tablets 12h August, Active RESULTS No Results PROCEDURES No Known [...]
--- OUTSIDE RECORDS SUMMARY | 2018-02-09 14:31 | XMS REPORT ---
Author Author TERESA JOHNSON [facility] eClinicalWorks Address Unknown Phone Unavailable Care Team Providers Care Bakery Assistant Name Role Phone TERESA JOHNSON Unavailable Allergies, Adverse Reactions, Alerts Substance Reaction Event Type Demerol Info Not Available Drug Allergy Codeine Sulfate Info Not Available Drug Allergy Problems Problem Type Condition Code Onset Dates Condition Status Assessment Depression F32.9 Active Problem Black stool K92.1 Active Assessment COPD (chronic obstructive pulmonary disease) J44.9 Active Assessment Type 2 diabetes mellitus with hyperglycemia E11.65 Active Assessment Hyperlipidemia E78.5 Active Problem Type 2 diabetes mellitus with hyperglycemia E11.65 Active Problem COPD (chronic obstructive pulmonary disease) J44.9 Active Problem Hyperlipidemia E78.5 Active Problem Erectile dysfunction N52.9 Active Problem Type 2 diabetes mellitus with diabetic neuropathy E11.40 Active Problem Chronic hepatitis C B18.2 Active Problem Depression F32.9 Active Medications Medication Code System Code Instructions Start Date End Date Status Dosage GlipiZIDE [facility] [address]-24 5 MG Orally Once a day Jan 28, 2014 1 tablet by Oral route Symbicort [facility] [address]-42 160-4.5 MCG/ACT Inhalation Twice a day 2 puffs Lancets ND 0 33 gauge 2014 1 time per day ONE TOUCH DELICA LANCETS. DX: 250.02 metformin [facility] [address]-01 1,000 mg oral 2 times a day Jan 28, 2014 October 01, 2015 take 1 tablet by Oral route Albuterol Sulfate [facility] [address]-27 90 mcg/actuation Inhalation Jan 28, 2014 2 puffs by Inhalation route every 4-6 hours as needed PRN cough or wheezing or SOB Simvastatin [facility] [address]-60 40 MG Orally Once a day Jan 28, 2014 1 tablet by Oral route Aspirin [facility] [address]-67 81 mg Apr 24, 2013 1 tablet by Oral route 1 time per day Lisinopril [facility] [address]-18 5 MG Orally Once a day Jan 28, 2014 1 tablet by Oral route 1 time per day Procedures Procedure Coding System Code Date [facility] VISIT ESTABLISHED PATIENT CPT-4 G0467 Apr 04, 2015 Office Visit, Est Pt., Level 3 CPT-4 58950 Apr 04, 2015 MICROALBUMIN, SEMIQUANT CPT-4 98936 Apr 04, 2015 Vital Signs Date/Time: Apr 04, 2015 Temperature 97.9 F Weight 151.1 lbs Height 66 in BMI 24.39 Index Blood Pressure Diastolic 74 mmHg Blood Pressure Systolic 128 mmHg Cardiac Monitoring Heart Rate 80 bpm Results Name Result Date Reference Range Unit Abnormality Flag MICROALBUMIN, URINE (IN HOUSE) ----A:C (IN HOUSE) <30 mg [id number] ----CRE 100 mg/dL [id number] ----ALB 10mg/L [id number] ----Color Yellow [id number] ----MICROALBUMIN Normal [id number] ----Lot # [id number] ----Exp date [id number] ----Clarity Clear [id number] Summary Purpose eClinicalWorks Submission
--- OUTSIDE RECORDS SUMMARY | 2018-02-09 14:31 | XMS REPORT ---
Author TERESA Dietz [facility] eClinicalWorks Address Unknown Phone Unavailable Care Team Providers Care Television Mechanic Name Role Phone TERESA JOHNSON CP Unavailable Allergies, Adverse Reactions, Alerts Substance Reaction Event Type Demerol Info Not Available Drug Allergy Codeine Sulfate Info Not Available Drug Allergy Problems Problem Type Condition ICD-9 Code Onset Dates Condition Status Problem Nondependent [...] 250.60 Active Problem Actinic keratosis 702.0 Active Assessment Erectile dysfunction 607.84 Active Problem Unspecified disorder of skin and [...] Instructions Start Date End Date Status Dosage metformin [facility] [address]-43 1,000 mg Jan 28, 2014 take 1 tablet by Oral route 2 times per day GlipiZIDE [facility] [address]-96 5 mg Jan 28, 2014 1 tablet by Oral route 1 time per day Lancets [facility] 0 33 gauge 2014 1 time per day ONE TOUCH DELICA LANCETS. DX: 250.02 Symbicort [facility] [address]-33 160-4.5 MCG/ACT Inhalation Twice a day 2 puffs Zoloft [facility] [address]-32 50 MG Orally Once a day November 12, 2014 1 tablet Simvastatin [facility] [address]-24 40 mg Jan 28, 2014 1 tablet by Oral route 1 time per day Albuterol Sulfate [facility] [address]-84 90 mcg/actuation Jan 28, 2014 2 puffs by Inhalation route every 4-6 hours as needed PRN cough or wheezing or SOB Cialis [facility] [address]-06 2.5 MG Orally Once a day Dec 30, 2014 Feb 28, 2015 1 tablet Aspirin [facility] [address]-01 81 mg Apr 24, 2013 1 tablet by Oral route 1 time per day Lisinopril [facility] [address]-21 5 mg Jan 28, 2014 1 tablet by Oral route 1 time per day Procedures Procedure Coding System Code Date Office Visit, Est Pt., Level 3 CPT-4 38028 Dec 30, 2014 [facility] VISIT ESTABLISHED PATIENT CPT-4 G0467 Dec 30, 2014 Vital Signs Date/Time: Dec 30, 2014 Temperature 98.4 F Weight 153.4 lbs Height 66 in BMI 24.76 Index Blood Pressure Diastolic 74 mmHg Blood Pressure Systolic 122 mmHg Cardiac Monitoring Heart Rate 76 bpm Results No Known Results Summary Purpose eClinicalWorks Submission
--- OUTSIDE RECORDS SUMMARY | 2018-02-09 14:31 | XMS REPORT ---
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 Bakeshop Cleaner Name Role Phone TERESA JOHNSON CP Unavailable Allergies, Adverse Reactions, Alerts Substance Reaction Event Type Demerol Info Not Available Drug Allergy Codeine Sulfate Info Not Available Drug Allergy Problems Problem Type Condition Code Onset Dates Condition Status Assessment Chronic hepatitis C B18.2 Active Assessment Type 2 diabetes mellitus with hyperglycemia E11.65 Active Assessment Type 2 diabetes mellitus with diabetic neuropathy E11.40 Active Problem COPD (chronic obstructive pulmonary disease) J44.9 Active Problem Chronic hepatitis C B18.2 Active Problem Type 2 diabetes mellitus with hyperglycemia E11.65 Active Problem Type 2 diabetes mellitus with diabetic neuropathy E11.40 Active Problem Black stool K92.1 Active Problem Depression F32.9 Active Problem Erectile dysfunction N52.9 Active Assessment Black stool K92.1 Active Assessment Depression F32.9 Active Assessment COPD (chronic obstructive pulmonary disease) J44.9 Active Medications Medication Code System Code Instructions Start Date End Date Status Dosage Albuterol Sulfate [facility] [address]-55 90 mcg/actuation Jan 28, 2014 2 puffs by Inhalation route every 4-6 hours as needed PRN cough or wheezing or SOB Symbicort [facility] [address]-53 160-4.5 MCG/ACT Inhalation Twice a day 2 puffs Lancets ND 0 33 gauge 2014 1 time per day ONE TOUCH DELICA LANCETS. DX: 250.02 Lisinopril [facility] [address]-12 5 MG Orally Once a day Jan 28, 2014 1 tablet by Oral route 1 time per day metformin [facility] [address]-21 1,000 mg Jan 28, 2014 take 1 tablet by Oral route 2 times per day Aspirin [facility] [address]-90 81 mg Apr 24, 2013 1 tablet by Oral route 1 time per day Zoloft [facility] [address]-57 50 MG Orally Once a day November 12, 2014 1 tablet Procedures Procedure Coding System Code Date [facility] VISIT ESTABLISHED PATIENT CPT-4 G0467 Feb 27, 2015 Office Visit, Est Pt., Level 3 CPT-4 43938 Feb 27, 2015 GLYCATED HEMOGLOBIN TEST CPT-4 66617 Feb 27, 2015 Vital Signs Date/Time: Feb 27, 2015 Temperature 97.0 F Weight 146.9 lbs Height 66 in BMI 23.71 Index Blood Pressure Diastolic 62 mmHg Blood Pressure Systolic 128 mmHg Cardiac Monitoring Heart Rate 72 bpm Results Name Result Date Reference Range Unit Abnormality Flag A1C (IN HOUSE) Summary Purpose eClinicalWorks Submission
--- OUTSIDE RECORDS SUMMARY | 2018-02-09 14:31 | XMS REPORT ---
Author Author RIANNA BRADY Organization [facility] Address [address] [place] [address] Care Team Providers Care Autocad Designer Name Role Phone BRADYVANE FajardoELE Unavailable PROBLEMS Type Condition ICD9-CM Code MVH93-VL Code Onset Dates Condition Status SNOMED Code Problem Other hammer toe(s) (acquired), left foot M20.42 Active 10506601 Problem Type 2 diabetes mellitus with diabetic neuropathy E11.40 Active 5276630025006 Problem Other hammer toe(s) (acquired), right foot M20.41 Active 450060777 Problem Chronic periodontitis K05.30 Active 5359749 Problem Vitamin D deficiency E55.9 Active 96462386 Problem Chronic kidney disease, stage III (moderate) N18.3 Active 712476318 Problem Thrombocytopenia D69.6 Active 285618898 Problem Hallux valgus (acquired), right foot M20.11 Active 474665984 Problem Ventral hernia without obstruction or gangrene K43.9 Active 760395382 Problem Osteoarthritis of spine with radiculopathy, lumbar region M47.26 Active 863202937 Problem DM neuro manif type II E11.49 Active 90238009 Problem Type 2 diabetes mellitus with hyperglycemia E11.65 Active 675584061347998 Problem Hepatitis C B19.20 Active 15048648 Problem Peripheral neuropathy G62.9 Active 32883634 Problem Hyperlipidemia E78.5 Active 64180013 Problem OM (onychomycosis) B35.1 Active 425781125 Problem Hepatic lesion K76.9 Active 525128531 Problem COPD (chronic obstructive pulmonary disease) J44.9 Active 49301226 Problem Cirrhosis of liver without ascites, unspecified hepatic cirrhosis type K74.60 Active 39983947 Problem GERD (gastroesophageal reflux disease) K21.9 Active 286517542 Problem Hallux rigidus M20.20 Active 681075393 ALLERGIES No Information ENCOUNTERS Encounter Location Date Diagnosis [facility] [address] [facility] [id number] [address] Nov, [facility] [id number] [place] [address] 005490- 6388 Oct, [facility] [id number] [place] [address] 49095- 0430 August, Onychomycosis B35.1 and Type 2 diabetes mellitus with diabetic neuropathy E11.40 [place] [address] 915031- 2956 August, Type 2 diabetes mellitus with hyperglycemia E11.65 [place] [id number] [place] [address] 715325- 2919 August, Chronic kidney disease, stage III (moderate) N18.3 [place] [id number] [place] [address] 277183- 1152 August, Chronic kidney disease, stage III (moderate) N18.3 [facility] [id number] [place] [address] [id number] Jul, Dental examination Z01.20 [place] [id number] [place] [address] 74011- 3703 Jun, [place] [id number] [place] [address] 82276- 6179 Jun, [place] [id number] [place] [address] 63082- 3985 Jun, [place] [id number] [place] [address] 88088- 0304 Jun, Chronic periodontitis K05.30 ; Dental caries K02.9 and Dental examination Z01.20 [place] [id number] [place] [address] 50260- 7492 Jun, Type 2 diabetes mellitus with hyperglycemia [...] Ventral hernia without obstruction or gangrene K43.9 [place] [address] 00414- 7164 Jun, COPD (chronic obstructive pulmonary disease) J44.9 [place] [address] 28504- 0547 Jun, Type 2 diabetes mellitus with diabetic neuropathy E11.40 and Onychomycosis B35.[address] 8[address]16- 0198 May, Hyperlipidemia E78.5 ; Cirrhosis of liver without ascites, unspecified hepatic cirrhosis type K74.60 ; Renal cell carcinoma, left C64.2 ; Hepatic lesion K76.9 ; Hepatitis C B19.20 ; Type 2 diabetes mellitus with hyperglycemia E11.65 and COPD (chronic obstructive pulmonary disease) J44.9 [place] [id number] [place] [address] 77445- 4129 May, Hyperlipidemia E78.5 and Chronic kidney disease, stage III ( moderate) N18.3 [place] [id number] [place] [address] 29603- 2093 Apr, Type 2 diabetes mellitus with diabetic neuropathy E11.40 ; Hyperlipidemia E78.5 ; COPD (chronic obstructive pulmonary disease) J44.9 and Osteoarthritis of spine with radiculopathy, lumbar region M47.26 [place] [id number] [place] [address] 40620- 6414 Apr, [place] [id number] [place] [address] 44629- 5869 Mar, Type 2 diabetes mellitus with diabetic neuropathy E11.40 ; Hyperlipidemia E78.5 ; COPD (chronic obstructive pulmonary disease) J44.9 and Osteoarthritis of spine with radiculopathy, lumbar region M47.26 [place] [address] 35239- 8118 Mar, Onychomycosis B35.1 and DM neuro manif type II E11.49 [place] [address] 46913- 9666 Mar, Hepatitis C B19.20 [place] [address] 23931- 0354 Mar, Hepatitis C B19.20 [place] [address] 837901- 6366 Jan, COPD (chronic obstructive pulmonary disease) J44.9 [place] [address] 79563- 1849 Jan, [place] [address] 32526- 1552 Nov, Elevated serum creatinine R79.89 [place] [address] 01955- 4318 Nov, Elevated serum creatinine R79.89 [place] [address] 93990- 4134 Nov, [place] [address] 45891- 0629 Nov, Onychomycosis B35.1 ; Hallux valgus (acquired), right foot M20.11 and DM neuro manif type II E11.49 [place] [address] 13583- 7520 Nov, [place] [address] 09133- 4967 Oct, Type 2 diabetes mellitus with hyperglycemia E11.65 ; Hyperlipidemia E78.5 ; COPD (chronic obstructive pulmonary disease) J44.9 and GERD (gastroesophageal reflux disease) K21.9 [place] [id number] [place] [address] 32143- 9245 Sep, COPD (chronic obstructive pulmonary disease) J44.9 ; Type 2 diabetes mellitus with hyperglycemia E11.65 ; Hyperlipidemia E78.5 and GERD ( gastroesophageal reflux disease) K21.9 [place] [address] 41989- 8769 August, [place] [address] 43722- 3737 August, Type 2 diabetes mellitus with hyperglycemia E11.[address] 60644- 9830 August, Onychomycosis B35.1 ; Other hammer toe(s) (acquired), right foot M20.41 and Type 2 diabetes mellitus with diabetic neuropathy E11.40 [place] [address] 65303- 3942 Jul, Elevated serum creatinine R79.89 [place] [address] 39159- 4764 Jul, COPD (chronic obstructive pulmonary disease) J44.9 and Ventral hernia without obstruction or gangrene K43.9 [place] [id number] [place] [address] 14384- 7676 Jul, Elevated serum creatinine R79.89 [place] [id number] [place] [address] 84422- 8226 Jun, [place] [id number] [place] [address] 59584- 7911 Jun, [address] 13863- 3845 Jun, Type 2 diabetes mellitus with hyperglycemia E11.65 ; Hyperlipidemia E78.5 ; GERD (gastroesophageal reflux disease) K21.9 and Hepatitis C B19.20 [place] [address] 79025- 4159 Jun, Hepatitis C B19.[address] 47087- 8448 Jun, Type 2 diabetes mellitus with hyperglycemia E11.65 ; Hyperlipidemia E78.5 ; COPD (chronic obstructive pulmonary disease) J44.9 ; GERD (gastroesophageal reflux disease) K21.9 ; Peripheral neuropathy G62.9 and Hepatitis C B19.[address] 30568- 3959 Jun, Onychomycosis B35.1 ; Hallux rigidus M20.20 ; Other hammer toe(s) (acquired), left foot M20.42 and Other hammer toe(s) (acquired), right foot M20.[address] 53398- 5914 Jun, Type 2 diabetes mellitus with hyperglycemia E11.65 and Hyperlipidemia E78.[address] 40940- 8984 Mar, Hepatitis C B19.20 ; Hepatic lesion K76.9 and Cirrhosis of liver without ascites, unspecified hepatic cirrhosis type K74.[address] 00498- 4706 Mar, Onychomycosis B35.1 and Hallux rigidus M20.[address] 20882- 6510 Dec, [address] 02242- 9427 Dec, Type 2 diabetes mellitus with hyperglycemia E11.65 ; Right leg injury, initial encounter S89.91XA ; Hyperlipidemia E78.5 ; COPD (chronic obstructive pulmonary disease) J44.9 ; GERD (gastroesophageal reflux disease) K21.9 ; Insomnia due to medical condition G47.01 and Renal cell carcinoma, left C64.[address] 92088- 7293 Dec, [place] [id number] [place] [address] 71542- 3483 Nov, Onychomycosis B35.1 and DM neuro manif type II E11.49 [place] [id number] [place] [address] 68286- 8830 Oct, Hepatitis C B19.20 [place] [address] 33893- 9349 Oct, Hepatic lesion K76.9 and Cirrhosis of liver without ascites , unspecified hepatic cirrhosis type K74.[address] 582947- 0870 Sep, Renal mass N28.89 ; Hepatic lesion K76.9 and Renal cell carcinoma, left C64.[address] 45398- 1889 Sep, Lesion of liver K76.9 [place] [address] 45206- 4788 Sep, Renal mass, right N28.[address] 38099- 4144 Sep, Osteoarthritis of spine with radiculopathy, lumbar region M47.26 [place] [address] 76042- 4480 August, Type 2 diabetes mellitus with hyperglycemia E11.65 ; Hyperlipidemia E78.5 ; Peripheral neuropathy G62.9 ; COPD (chronic obstructive pulmonary disease) J44.9 ; Dorsalgia, unspecified M54.9 ; Pain of left leg M79.605 and Foot pain, left M79.672 [place] [id number] [place] [address] 08415- 0287 Jun, Hepatitis C B19.20 [place] [id number] [place] [address] 25650- 5292 Jun, Onychomycosis B35.1 ; Hallux rigidus M20.20 and DM neuro manif type II E11.[address] 11777- 6236 Jun, Hepatitis C B19.20 and Erectile dysfunction 607.84 [place] [address] 73490- 9055 Jun, Type 2 diabetes mellitus with hyperglycemia E11.65 [place] [address] 97950- 3809 Jun, Hepatitis C B19.[address] 76590- 5550 Jun, [address] 98266- 4161 Jun, Type 2 diabetes mellitus with hyperglycemia E11.[address] 08884- 2727 Jun, Type 2 diabetes mellitus with hyperglycemia E11.65 ; Hyperlipidemia E78.5 ; COPD (chronic obstructive pulmonary disease) J44.9 and Hepatitis C B19.[address] 14773- 4657 05 Jun, 2015 Type 2 diabetes mellitus with hyperglycemia E11.65 ; General medical exam Z00.00 ; Hyperlipidemia E78.5 ; COPD (chronic obstructive pulmonary disease) J44.9 ; Hepatitis C B19.20 ; GERD (gastroesophageal reflux disease) K21.9 ; OM (onychomycosis) B35.1 and Peripheral neuropathy G62.[address] 81937- 5232 Apr, COPD (chronic obstructive pulmonary disease) J44.9 ; Depression F32.9 ; Hyperlipidemia E78.5 and Type 2 diabetes mellitus with hyperglycemia E11.[address] 82995- 3918 Apr, [address] [address]- 9521 Mar, Type 2 diabetes mellitus with hyperglycemia E11.65 [facility] [id number] [place] [address] 40841- 5389 Mar, [facility] [id number] [place] [address] 32482- 9570 Mar, Type 2 diabetes mellitus with hyperglycemia E11.65 [facility] [address] 48676- 1367 Jan, Type 2 diabetes mellitus with hyperglycemia E11.65 ; Type 2 diabetes mellitus with diabetic neuropathy E11.40 ; Chronic hepatitis C B18.2 ; COPD (chronic obstructive pulmonary disease) J44.9 ; Depression F32.9 and Black stool K92.1 [place] [id number] [place] [address] 42696- 8319 Jan, [place] [id number] [place] [address] 39061- 4489 Jan, [facility] [id number] [place] [address] 64822- 1611 Dec, [place] [id number] [place] [address] 67632- 5559 Nov, Erectile dysfunction 607.84 [place] [id number] [place] [address] 36204- 7020 Nov, Depressive disorder, not elsewhere classified 311 [facility] [id number] [place] [address] 25462- 1231 Nov, Depressive disorder, not elsewhere classified 311 [place] [id number] [place] [address] 20571- 3116 Nov, Pyelonephritis 590.80 [place] [id number] [place] [address] 55866- 0068 Oct, Pyelonephritis 590.80 [facility] [id number] [place] [address] 08212- 5570 Oct, Right inguinal pain 789.09 [facility] [address] [address]- 9700 Oct, [facility] [id number] [address]- 5370 Oct, Depressive disorder, not elsewhere classified 311 [facility] [id number] [place] [address] 829219- 5561 Sep, Depressive disorder, not elsewhere classified 311 and No condition on [place] II V71.09 [facility] [address] [place] [address] 375404- 2322 Sep, Diabetes mellitus without mention of complication, type II or unspecified type, uncontrolled 250.02 and Right inguinal pain 789.09 [facility] [address] [address]- 3486 Jul, [facility] [address] [address]- 1227 Jul, [facility] [address] [address]- 6808 May, [facility] [id number] [place] [address] 66467- 3528 Mar, [facility] [address] [address]- 6365 Mar, [facility] [address] [address]- 1504 Dec, [facility] [address] [address]- 8631 Dec, [facility] [address] [address]- 5042 Oct, [facility] [address], [place] [address]- 9840 Oct, [facility] [id number] [place] [address]- 3222 Oct, [facility] [place] [facility] [address] [id number] [place] [address]- 0587 Oct, [facility] [place] [facility] [address] [id number] [place] [address]- 2519 Sep, [facility] [place] [facility] [address] [id number] [place] [address]- 3450 Sep, [facility] [place] [facility] [address] [id number] [place] [address]- 0554 Jun, [facility] [place] [facility] [address] [id number] [place] [address]- 8093 Jun, [facility] [place] [facility] [address] [id number] [place] [address]- 7349 Jun, [facility] [place] [facility] [address] [id number] [place] [address]- 0203 Jun, [facility] [place] [facility] [address] [id number] [place] [address]- 4002 Jun, [facility] [place] [facility] [address] [id number] [place] [address]- 3346 Jun, [facility] [place] [facility] [address] [facility] [id number] [place] [address]- 1355 Jun, [facility] [place] [facility] [address] [id number] [place] [address]- 0919 Jun, [facility] [place] [facility] [address] [id number] [place] [address]- 7891 Apr, [facility] [place] [facility] [address] [id number] [place] 5611 Apr, [facility] [place] [facility] [address] [id number] [place] 3813 Apr, [facility] [place] [facility] [address] [id number] [place] [address]- 3834 Apr, [facility] [place] [facility] [address] [id number] [place] 4347 Apr, [facility] [place] [facility] [address] [id number] [place] [address]- 1788 Apr, [facility] [place] [facility] [address] [id number] [place] [address]- 8251 Apr, [facility] [place] [facility] [address] [id number] [place] [address]- 3908 Apr, [facility] [place] [facility] [address] [id number] [place] 9357 Apr, [facility] [place] [facility] [address] [id number] [place] [address]- 4079 Mar, [facility] [place] [facility] [address] [id number] [place] [address]- 6719 Mar, [facility] [place] [facility] [address] [id number] [place] [address]- 5134 Mar, [facility] [place] [facility] [address] [id number] [place] [address]- 0690 Mar, [facility] [place] [facility] [address] [id number] [place] [address]- 9203 Mar, [facility] [place] [facility] [address] [id number] [place] [address]- 5734 Mar, [facility] [place] [facility] [address] [id number], [place] [address]- 7868 Mar, [facility] [place] [facility] [address] [id number], [place] [address]- 1623 Mar, [facility] [place] [facility] [address] [id number], [place] [address]- 3325 Mar, [facility] [place] [facility] [address] [id number] 3263 Mar, [facility] [place] [facility] [address] [id number], [place] [address]- 6976 Mar, [facility] [address] [facility] [id number] [place] [address]- 1416 Mar, [facility] [address] [facility] [id number], [place] [address]- 2546 Mar, [facility] [address] [facility] [id number] [place] [address]- 2546 Mar, IMMUNIZATIONS No Known Immunizations SOCIAL HISTORY Never Assessed REASON FOR VISIT Lab (walk-in) PLAN OF CARE VITAL SIGNS MEDICATIONS Unknown Medications RESULTS No Results PROCEDURES Procedure Date Ordered Result Body Site GLYCATED HEMOGLOBIN TEST Apr 19, 2017 Hemoglobin Test Send Out 0 dollar Apr 19, 2017 INSTRUCTIONS MEDICATIONS ADMINISTERED No Known [...]
--- OUTSIDE RECORDS SUMMARY | 2018-02-09 14:32 | XMS REPORT ---
Author Author RIANNA BRADY Organization [facility] Address [address] [place] [address] Care Team Providers Care Stress Test Technician Name Role Phone BRADYVANE FajardoELE Unavailable PROBLEMS Type Condition ICD9-CM Code TBH83-ML Code Onset Dates Condition Status SNOMED Code Problem Other hammer toe(s) (acquired), left foot M20.42 Active 15984607 Problem Type 2 diabetes mellitus with diabetic neuropathy E11.40 Active 3215785308669 Problem Other hammer toe(s) (acquired), right foot M20.41 Active 229238010 Problem Chronic periodontitis K05.30 Active 6720501 Problem Vitamin D deficiency E55.9 Active 50726015 Problem Chronic kidney disease, stage III (moderate) N18.3 Active 834668807 Problem Hallux valgus (acquired), right foot M20.11 Active 195421830 Problem Ventral hernia without obstruction or gangrene K43.9 Active 160826180 Problem Osteoarthritis of spine with radiculopathy, lumbar region M47.26 Active 208126229 Problem DM neuro manif type II E11.49 Active 83469972 Problem Type 2 diabetes mellitus with hyperglycemia E11.65 Active 848589069849259 Problem Hepatitis C B19.20 Active 34112943 Problem Peripheral neuropathy G62.9 Active 23562924 Problem Hyperlipidemia E78.5 Active 04212784 Problem OM (onychomycosis) B35.1 Active 527650140 Problem Hepatic lesion K76.9 Active 430381992 Problem COPD (chronic obstructive pulmonary disease) J44.9 Active 59082207 Problem Cirrhosis of liver without ascites, unspecified hepatic cirrhosis type K74.60 Active 06652573 Problem GERD (gastroesophageal reflux disease) K21.9 Active 498897242 Problem Hallux rigidus M20.20 Active 386987484 ALLERGIES No Information ENCOUNTERS Encounter Location Date Diagnosis [facility] [address] [facility] [id number] [address] August, [facility] [address] [facility] [id number] [id number] Jul, Dental examination Z01.20 [place] [address], [place] [address] Jun, [facility] [address], [place] [address] Jun, [facility] [address] [place] [id number] [place] [address] 05450- 8881 Jun, [place] [address] [place] [address] 60158- 7166 Jun, Chronic periodontitis K05.30 ; Dental caries K02.9 and Dental examination Z01.20 [place] [address], [place] [address] Jun, Type 2 diabetes mellitus with hyperglycemia [...] Ventral hernia without obstruction or gangrene K43.9 [place] [address] [id number], [place] [address] Jun, COPD (chronic obstructive pulmonary disease) J44.9 [place] [address] [place] [id number] [place] [address] 09152- 7984 16 Jun, 2017 Type 2 diabetes mellitus with diabetic neuropathy E11.40 and Onychomycosis B35.1 [place] [address] [place] [address] 61300- 0576 May, Hyperlipidemia E78.5 ; Cirrhosis of liver without ascites, unspecified hepatic cirrhosis type K74.60 ; Renal cell carcinoma, left C64.2 ; Hepatic lesion K76.9 ; Hepatitis C B19.20 ; Type 2 diabetes mellitus with hyperglycemia E11.65 and COPD (chronic obstructive pulmonary disease) J44.9 [place] [address] [place] [id number] [place] [address] 44572- 0907 May, Hyperlipidemia E78.5 and Chronic kidney disease, stage III ( moderate) N18.3 [place] [address] [address]- 3916 Apr, Type 2 diabetes mellitus with diabetic neuropathy E11.40 ; Hyperlipidemia E78.5 ; COPD (chronic obstructive pulmonary disease) J44.9 and Osteoarthritis of spine with radiculopathy, lumbar region M47.26 [place] [address] [address]- [address] Apr, [address] [address]- [address] Mar, Type 2 diabetes mellitus with diabetic neuropathy E11.40 ; Hyperlipidemia E78.5 ; COPD (chronic obstructive pulmonary disease) J44.9 and Osteoarthritis of spine with radiculopathy, lumbar region M47.26 [place] [address] [place] [id number] [place] [address] 41636- 4259 Mar, Onychomycosis B35.1 and DM neuro manif type II E11.49 [place] [address] 91703- 9893 Mar, Hepatitis C B19.[address] 47257- 9886 Mar, Hepatitis C B19.20 [place] [address] 60132- 7436 Jan, COPD (chronic obstructive pulmonary disease) J44.9 [place] [address] 92642- 2567 Jan, [place] [address] [place] [id number] [place] [address] 07500- 3607 Nov, Elevated serum creatinine R79.89 [place] [address] [place] [id number] [place] [address] 38649- 4526 Nov, Elevated serum creatinine R79.89 [place] [address] [place] [id number] [place] [address] 39488- 3739 Nov, [place] [address] [place] [id number] [place] [address] 62564- 4169 Nov, Onychomycosis B35.1 ; Hallux valgus (acquired), right foot M20.11 and DM neuro manif type II E11.49 [place] [id number] [place] [address] 54098- 5930 Nov, [place] [id number] [place] [address] 28926- 9227 Oct, Type 2 diabetes mellitus with hyperglycemia E11.65 ; Hyperlipidemia E78.5 ; COPD (chronic obstructive pulmonary disease) J44.9 and GERD (gastroesophageal reflux disease) K21.9 [place] [id number] [place] [address] 64023- 1720 Sep, COPD (chronic obstructive pulmonary disease) J44.9 ; Type 2 diabetes mellitus with hyperglycemia E11.65 ; Hyperlipidemia E78.5 and GERD ( gastroesophageal reflux disease) K21.9 [place] [address] [place] [address] 31710- 9204 August, [place] [id number] [place] [address] 88364- 1697 August, Type 2 diabetes mellitus with hyperglycemia E11.65 [place] [id number] [place] [address] 89623- 0105 August, Onychomycosis B35.1 ; Other hammer toe(s) (acquired), right foot M20.41 and Type 2 diabetes mellitus with diabetic neuropathy E11.40 [address] [place] [address] 80511- 2787 Jul, Elevated serum creatinine R79.89 [place] [address] [place] [id number] [place] [address] 77440- 6358 Jul, COPD (chronic obstructive pulmonary disease) J44.9 and Ventral hernia without obstruction or gangrene K43.9 [place] [address] 82373- 8098 Jul, Elevated serum creatinine R79.89 [place] [address] [place] [id number] [place] [address] 07079- 1568 Jun, [place] [address] 83891- 4685 Jun, [place] [address] [place] [id number] [place] [address] 57539- 3895 Jun, Type 2 diabetes mellitus with hyperglycemia E11.65 ; Hyperlipidemia E78.5 ; GERD (gastroesophageal reflux disease) K21.9 and Hepatitis C B19.20 [place] [address] [place] [id number] [place] [address] 59854- 2369 Jun, Hepatitis C B19.20 [place] [address] [place] [id number] [place] [address] 55521- 9428 Jun, Type 2 diabetes mellitus with hyperglycemia E11.65 ; Hyperlipidemia E78.5 ; COPD (chronic obstructive pulmonary disease) J44.9 ; GERD (gastroesophageal reflux disease) K21.9 ; Peripheral neuropathy G62.9 and Hepatitis C B19.20 [place] [address] [place] [id number] [place] [address] 47197- 5410 Jun, Onychomycosis B35.1 ; Hallux rigidus M20.20 ; Other hammer toe(s) (acquired), left foot M20.42 and Other hammer toe(s) (acquired), right foot M20.41 [place] [address] [place] [id number] [place] [address] 00318- 4533 Jun, Type 2 diabetes mellitus with hyperglycemia E11.65 and Hyperlipidemia E78.5 [place] [address] [place] [id number] [place] [address] 09957- 7071 Mar, Hepatitis C B19.20 ; Hepatic lesion K76.9 and Cirrhosis of liver without ascites, unspecified hepatic cirrhosis type K74.60 [place] [address] [place] [id number] [place] [address] 53729- 8657 Mar, Onychomycosis B35.1 and Hallux rigidus M20.20 [place] [address] [place] [id number] [place] [address] 55434- 1680 Dec, [place] [address] 90020- 7102 Dec, Type 2 diabetes mellitus with hyperglycemia E11.65 ; Right leg injury, initial encounter S89.91XA ; Hyperlipidemia E78.5 ; COPD (chronic obstructive pulmonary disease) J44.9 ; GERD (gastroesophageal reflux disease) K21.9 ; Insomnia due to medical condition G47.01 and Renal cell carcinoma, left C64.2 [place] [address] 48956- 0845 Dec, [place] [address] 90557- 2339 Nov, Onychomycosis B35.1 and DM neuro manif type II E11.49 [place] [address] [place] [id number] [place] [address] 45866- 2995 Oct, Hepatitis C B19.20 [place] [address] [place] [id number] [place] [address] 15618- 5693 Oct, Hepatic lesion K76.9 and Cirrhosis of liver without ascites , unspecified hepatic cirrhosis type K74.60 [place] [address] [place] [id number] [place] [address] 08116- 0212 Sep, Renal mass N28.89 ; Hepatic lesion K76.9 and Renal cell carcinoma, left C64.2 [place] [address] [place] [id number] [place] [address] 46748- 8241 Sep, Lesion of liver K76.9 [place] [address] 42171- 9658 Sep, Renal mass, right N28.89 [place] [address] 83628- 7461 Sep, Osteoarthritis of spine with radiculopathy, lumbar region M47.26 [place] [address] 42728- 6543 August, Type 2 diabetes mellitus with hyperglycemia E11.65 ; Hyperlipidemia E78.5 ; Peripheral neuropathy G62.9 ; COPD (chronic obstructive pulmonary disease) J44.9 ; Dorsalgia, unspecified M54.9 ; Pain of left leg M79.605 and Foot pain, left M79.[address] 43130- 4763 Jun, Hepatitis C B19.20 [place] [address] 04968- 5368 Jun, Onychomycosis B35.1 ; Hallux rigidus M20.20 and DM neuro manif type II E11.49 [place] [id number] [place] [address] 63573- 9141 Jun, Hepatitis C B19.20 and Erectile dysfunction 607.84 [place] [address] [place] [id number] [place] [address] 38487- 1587 Jun, Type 2 diabetes mellitus with hyperglycemia E11.65 [place] [address] [place] [id number] [place] [address] 45818- 6529 Jun, Hepatitis C B19.20 [place] [address] [place] [id number] [place] [address] 13142- 3135 Jun, [place] [address] [place] [id number] [place] [address] 97228- 5619 Jun, Type 2 diabetes mellitus with hyperglycemia E11.65 [place] [address] [place] [id number] [place] [address] 49635- 2602 Jun, Type 2 diabetes mellitus with hyperglycemia E11.65 ; Hyperlipidemia E78.5 ; COPD (chronic obstructive pulmonary disease) J44.9 and Hepatitis C B19.20 [place] [address] 73019- 0866 Jun, Type 2 diabetes mellitus with hyperglycemia E11.65 ; General medical exam Z00.00 ; Hyperlipidemia E78.5 ; COPD (chronic obstructive pulmonary disease) J44.9 ; Hepatitis C B19.20 ; GERD (gastroesophageal reflux disease) K21.9 ; OM (onychomycosis) B35.1 and Peripheral neuropathy G62.9 [place] [address] [place] [id number] [place] [address] 28572- 8126 Apr, COPD (chronic obstructive pulmonary disease) J44.9 ; Depression F32.9 ; Hyperlipidemia E78.5 and Type 2 diabetes mellitus with hyperglycemia E11.65 [place] [address] [place] [id number] [place] [address] 18171- 6197 Apr, [place] [address] 17563- 0572 Mar, Type 2 diabetes mellitus with hyperglycemia E11.65 [place] [address] 92919- 1863 Mar, [place] [address] 29791- 8196 Mar, Type 2 diabetes mellitus with hyperglycemia E11.65 [place] [address] [place] [id number] [place] [address] 74050- 3154 Jan, Type 2 diabetes mellitus with hyperglycemia E11.65 ; Type 2 diabetes mellitus with diabetic neuropathy E11.40 ; Chronic hepatitis C B18.2 ; COPD (chronic obstructive pulmonary disease) J44.9 ; Depression F32.9 and Black stool K92.1 [place] [address] 51425- 3497 Jan, [facility] [address], [place] [address]- 4033 Jan, [facility] [address] [place] [id number] [place] [address] 097792- 4582 Dec, [facility] [address] [place] [address] 33587- 6186 Nov, Erectile dysfunction 607.84 [facility] [address] [place] [id number] [place] [address] 275292- 2658 Nov, Depressive disorder, not elsewhere classified 311 [facility] [address] [place] [id number] [place] [address] 75935- 8916 Nov, Depressive disorder, not elsewhere classified 311 [facility] [address] [id number], [place] [address]- 1494 Nov, Pyelonephritis 590.80 [facility] [address] [place] [id number] [place] [address] 57245- 2807 Oct, Pyelonephritis 590.80 [facility] [address] [place] [id number] [place] [address] 56079- 6323 Oct, Right inguinal pain 789.09 [facility] [address] [place] [address] 97661- 1677 Oct, [facility] [address], [place] [address]- 2196 Oct, Depressive disorder, not elsewhere classified 311 [facility] [address] [place] [address] 32209- 4938 Sep, Depressive disorder, not elsewhere classified 311 and No condition on [place] II V71.09 [facility] [address] [place] [id number] [place] [address] 87663- 3424 Sep, Diabetes mellitus without mention of complication, type II or unspecified type, uncontrolled 250.02 and Right inguinal pain 789.09 [facility] [address] [place] [id number] [place] [address] 47006- 8228 Jul, [facility] [place] [facility] [address] [id number] [place] [address]- 2226 Jul, [facility] [place] [facility] [address] [id number] [place] [address]- 4331 May, [facility] [place] [facility] [address] [id number] [place] [address]- 8707 Mar, [facility] [place] [facility] [address] [id number] [place] [address]- 0103 Mar, [facility] [place] [facility] [address] [id number] [place] [address]- 9728 Dec, [facility] [place] [facility] [address] [id number] [place] [address]- 2366 Dec, [facility] [place] [facility] [address] [id number] [place] [address]- 2148 Oct, [facility] [place] [facility] [address] [id number] [place] [address]- 2156 Oct, [facility] [place] [facility] [address] [id number] [place] [address]- 2798 Oct, [facility] [place] [facility] [address] [id number] [place] [address]- 9640 Oct, [facility] [place] [facility] [address] [id number] [place] [address]- 6862 Sep, [facility] [place] [facility] [address] [id number] [place] [address]- 1672 Sep, [facility] [place] [facility] [address] [id number] [place] [address]- 5204 Jun, [facility] [place] [facility] [address] [id number] [place] [address]- 4802 Jun, [facility] [place] [facility] [address] [id number] [place] [address]- 2494 Jun, [facility] [place] [facility] [address] [id number] [place] [address]- 9383 Jun, [facility] [address] [id number] [place] [address]- 2281 Jun, [facility] [address] [id number] [place] 2686 Jun, [facility] [address] [id number] [place] [address]- 8256 Jun, [facility] [place] [facility] [address] [id number] [place] [address]- 6054 Jun, [facility] [address] [id number] [place]- 9038 Apr, [facility] [address] [id number] [place] [address]- 6030 Apr, [facility] [address] [id number] [place] [address]- 6530 Apr, [facility] [address] [id number] [place] [address]- 9221 Apr, [facility] [address] [id number] [place] [address]- 5181 Apr, [facility] [address] [facility] [id number] [place] [address]- 7684 Apr, [facility] [place] [facility] [address] [id number] [place] [address]- 1616 Apr, [facility] [place] [facility] [address] [id number] [place] [address]- 5147 Apr, [facility] [place] [facility] [address] [id number] [place] [address]- 2363 Apr, [facility] [place] [facility] [address] [id number] [place] [address]- 9270 Mar, [facility] [place] [facility] [address] [id number] [place] [address]- 4476 Mar, [facility] [address], [place] [address]- 6380 Mar, [facility] [address], [place] [address]- 7615 Mar, [facility] [address], [place] [address]- 5858 Mar, [facility] [address] [place] [address] 17087- 2153 Mar, [facility] [address], [place] [address]- 4517 Mar, [facility] [address] [place] [address] 60331- 3377 Mar, [facility] [address] [place] [address] 14970- 3816 Mar, [facility] [address] [place] [address] 98465- 5833 Mar, [facility] [address], [place] [address]- 5299 Mar, [facility] [address], [place] [address]- 3337 Mar, [facility] [address], [place] [address]- 2557 Mar, [facility] [address], [place] [address]- 4612 Mar, IMMUNIZATIONS No Known Immunizations SOCIAL HISTORY Never Assessed REASON FOR VISIT Lab (walk-in) PLAN OF CARE Activity Details Pending Test PHOSPHORUS VITAL SIGNS MEDICATIONS Unknown Medications RESULTS Name Result Date Reference Range PTH (INTACT) 2016-12-29 PTH, Intact 30 15-65 URIC ACID, SERUM 2016-12-29 Uric Acid, Serum 6.7 3.7-8.6 A1C 2016-12-29 Hemoglobin A1c 6.9 4.8-5.6 URINE PROTEIN TO CREATININE RATIO 2016-12-29 Creatinine, Urine 76.9 Not Estab. Protein,Total,Urine 11.3 Not Estab. Protein/Creat Ratio 147 0-200 UA W/ MICROSCOPY 2016-12-29 Specific [place] 1.018 1.005-1.030 pH 6.5 5.0-7.5 Urine-Color Yellow Yellow Appearance Clear Clear WBC Esterase Negative Negative Protein Negative Negative/Trace Glucose Negative Negative Ketones Negative Negative Occult Blood Negative Negative Bilirubin Negative Negative Urobilinogen,Semi-Qn 1.0 0.2-1.0 Nitrite, Urine Negative Negative Microscopic Examination Microscopic Examination See below: WBC 0-5 0 - 5 RBC 0-2 0 - 2 Epithelial Cells (non renal) None seen 0 - 10 Bacteria Few None seen/Few CBC 2016-12-29 WBC 4.5 3.4-10.8 RBC 4.34 4.14-5.80 Hemoglobin 13.5 12.6-17.7 Hematocrit 39.9 37.5-51.0 MCV 92 79-97 MCH 31.1 26.6-33.0 MCHC 33.8 31.5-35.7 RDW 14.3 12.3-15.4 Platelets 104 150-379 Neutrophils 61 Lymphs 26 Monocytes 5 Eos 7 Basos 1 Neutrophils (Absolute) 2.8 1.4-7.0 Lymphs (Absolute) 1.2 0.7-3.1 Monocytes(Absolute) 0.2 0.1-0.9 Eos (Absolute) 0.3 0.0-0.4 Baso (Absolute) 0.0 0.0-0.2 Immature Granulocytes 0 Immature Grans (Abs) 0.0 0.0-0.1 VITAMIN D, 25-H 2016-12-29 Vitamin D, 25-Hydroxy 23.2 30.0-100.0 LIPID PANEL 2016-12-29 Cholesterol, Total 164 100-199 Triglycerides 151 0-149 HDL Cholesterol 56 >39 VLDL Cholesterol Kalyan 30 5-40 LDL Cholesterol Calc 78 0-99 RENAL PROFILE 2016-12-29 Glucose, Serum 147 65-99 BUN 21 8-27 Creatinine, Serum 1.40 0.76-1.27 eGFR If NonAfricn Am 51 >59 eGFR If Africn Am 59 >59 BUN/Creatinine Ratio 15 10-24 Sodium, Serum 140 134-144 Potassium, Serum 4.4 3.5-5.2 Chloride, Serum 102 96-106 Carbon Dioxide, Total 25 18-29 Calcium, Serum 9.2 8.6-10.2 Phosphorus, Serum 3.4 2.5-4.5 Albumin, Serum 3.6 3.6-4.8 PROCEDURES Procedure Date Ordered Result Body Site LAB NOT BILLED BY [facility] Dec 29, 2016 Hemoglobin Test Send Out 0 dollar Dec 29, 2016 VENIPUNCT, ROUTINE* Dec 29, 2016 INSTRUCTIONS MEDICATIONS ADMINISTERED No Known Medications MEDICAL [...]
--- OUTSIDE RECORDS SUMMARY | 2018-02-09 14:32 | XMS REPORT ---
Author Author RIANNA BRADY Organization [employer] Address Unknown Phone Unavailable Care Team Providers Care Sprayer Leather Name Role Phone RIANNA BRADY CP Unavailable Allergies, Adverse Reactions, Alerts Substance Reaction Event Type Demerol Info Not Available Drug Allergy Codeine Sulfate Info Not Available Drug Allergy Problems Problem Type Condition Code Onset Dates Condition Status Assessment General medical exam Z00.00 Active Problem Peripheral neuropathy G62.9 Active Assessment Type 2 diabetes mellitus with hyperglycemia E11.65 Active Problem General medical exam Z00.00 Active Problem Hyperlipidemia E78.5 Active Problem Type 2 diabetes mellitus with hyperglycemia E11.65 Active Problem GERD (gastroesophageal reflux disease) K21.9 Active Problem OM (onychomycosis) B35.1 Active Problem COPD (chronic obstructive pulmonary disease) J44.9 Active Problem Hepatitis C B19.20 Active Assessment GERD (gastroesophageal reflux disease) K21.9 Active Assessment Hepatitis C B19.20 Active Assessment Peripheral neuropathy G62.9 Active Assessment COPD (chronic obstructive pulmonary disease) J44.9 Active Assessment OM (onychomycosis) B35.1 Active Assessment Hyperlipidemia E78.5 Active Medications Medication Code System Code Instructions Start Date End Date Status Dosage Lisinopril [facility] [address]-95 5 MG Orally Once a day Jan 28, 2014 1 tablet by Oral route 1 time per day Aspirin [facility] [address]-99 81 MG Orally Once a day Apr 24, 2013 1 tablet by Oral route 1 time per day Metformin HCl [facility] [address]-19 1000 MG Orally Twice a day Jun 06, 2015 1 tablet with meals Symbicort [facility] [address]-13 160-4.5 MCG/ACT Inhalation Twice a day 2 puffs Lancets [facility] 0 33 gauge 4 times a day 2014 1 time per day ONE TOUCH [employer] LANCETS. DX: 250.02 Sucralfate [facility] [address]-73 1 GM Orally 4 times a day 1 tablet on an empty stomach Albuterol Sulfate [facility] [address]-26 90 mcg/actuation Inhalation every 4 hrs Jan 28, 2014 2 puffs by Inhalation route every 4-6 hours as needed PRN cough or wheezing or SOB Simvastatin [facility] [address]-83 40 MG Orally Once a day Jan 28, 2014 1 tablet by Oral route GlipiZIDE [facility] [address]-18 5 MG Orally Once a day Jan 28, 2014 1 tablet by Oral route Procedures Procedure Coding System Code Date [facility] VISIT ESTABLISHED PATIENT CPT-4 G0467 Jun 06, 2015 Office Visit, Est Pt., Level 3 CPT-4 35561 Jun 06, 2015 GLYCATED HEMOGLOBIN TEST CPT-4 35238 Jun 06, 2015 Vital Signs Date/Time: Jun 06, 2015 Temperature 97.4 F Weight 151 lbs Height 66 in BMI 24.37 Index Blood Pressure Diastolic 78 mmHg Blood Pressure Systolic 122 mmHg Cardiac Monitoring Heart Rate 72 bpm Results Name Result Date Reference Range Unit Abnormality Flag A1C (IN HOUSE) ----A1C IN HOUSE 6.5 20150606 4.3 - 5.6 % ----Previous A1c 6.2 [id number] ----Lot [id number] ----Exp date [id number] Summary Purpose [employer] Submission
--- OUTSIDE RECORDS SUMMARY | 2018-02-09 14:32 | XMS REPORT ---
Author Author BRADYRIANNA Fajardo Organization [facility] Address [address] [place] [address] Care Team Providers Care Fleet Operations Manager Name Role Phone BRADYRIANNA Fajardo Unavailable PROBLEMS Type Condition ICD9-CM Code [id number] Code Onset Dates Condition Status SNOMED Code Problem Cirrhosis of liver without ascites, unspecified hepatic cirrhosis type K74.60 Active 30136344 Problem Insomnia due to medical condition G47.01 Active 33112734 Problem Hallux rigidus M20.20 Active 502203615 Problem Hallux valgus (acquired), right foot M20.11 Active 788805464 Problem Dermatochalasis of right eye, unspecified eyelid H02.833 Active 028636559 Problem DM neuro manif type II E11.49 Active 62054282 Problem Hypermetropia, bilateral H52.03 Active 48672679 Problem Thrombocytopenia D69.6 Active 068971042 Problem Other hammer toe(s) (acquired), right foot M20.41 Active 022533174 Problem Other hammer toe(s) (acquired), left foot M20.42 Active 50915180 Problem Ventral hernia without obstruction or gangrene K43.9 Active 473741791 Problem Type 2 diabetes mellitus with diabetic neuropathy E11.40 Active 7543237125253 Problem COPD (chronic obstructive pulmonary disease) J44.9 Active 64319926 Problem GERD (gastroesophageal reflux disease) K21.9 Active 200267914 Problem Vitamin D deficiency E55.9 Active 57201226 Problem Hepatitis C B19.20 Active 47992815 Problem Hyperlipidemia E78.5 Active 78964008 Problem OM (onychomycosis) B35.1 Active 797502905 Problem Arcus senilis of both eyes H18.413 Active 761354108 Problem Type 2 diabetes mellitus with hyperglycemia E11.65 Active 058185714637351 Problem Renal cell carcinoma, left C64.2 Active 678783588 Problem Presbyopia OU H52.4 Active 51224205 Problem Peripheral neuropathy G62.9 Active 24108397 Problem Hepatic lesion K76.9 Active 994061819 ALLERGIES Unknown Allergies SOCIAL HISTORY No smoking Hx information available PLAN OF CARE VITAL SIGNS MEDICATIONS Medication Instructions Dosage Frequency Start Date End Date Duration Status Metformin HCl 1000 MG Orally Twice a day 1 tablet with meals 12h 05 Jun, 2015 30 days Active Lisinopril 5 mg Orally Once a day 1 tablet by Oral route 1 time per day 24h Dec, 30 days Active Simvastatin 40 mg Orally Once a day 1 tablet by Oral route 24h Dec, 30 days Active GlipiZIDE 5 mg Orally Once a day 1 tablet by Oral route 24h Dec, 30 days Active RESULTS No Results PROCEDURES No Known procedures IMMUNIZATIONS Vaccine Route Administration Date Status FLUZONE QUAD 3 AND UP 0.50 2015 IM Intramuscular Jun 07, 2016 Administered
--- OUTSIDE RECORDS SUMMARY | 2018-02-09 14:32 | XMS REPORT ---
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 Active 09795765 Problem Renal mass N28.89 Active 145955655 Problem Hepatic lesion K76.9 Active 649881513 Problem Hallux rigidus M20.20 Active 351860254 Problem Cirrhosis of liver without ascites, unspecified hepatic cirrhosis type K74.60 Active 20717951 Assessment Type 2 diabetes mellitus with hyperglycemia E11.65 Dec, Active 204561253617930 Problem Peripheral neuropathy G62.9 Active 04516157 Problem Hepatitis C B19.20 Active 11137530 Problem COPD (chronic obstructive pulmonary disease) J44.9 Active 94836920 Problem OM (onychomycosis) B35.1 Active 441732637 Problem Hyperlipidemia E78.5 Active 22016462 Problem GERD (gastroesophageal reflux disease) K21.9 Active 684833040 Problem General medical exam Z00.00 Active 152784848 ALLERGIES Substance Reaction Event Type Date Status Demerol Unknown Drug Allergy Dec, Active Codeine Sulfate Unknown Drug Allergy Dec, Active SOCIAL HISTORY No smoking Hx information available PLAN OF CARE Activity Details Pending Test CMP Pending Test Xray : Tibia/Fibula, Right (IN HOUSE) 3 Months,Reason: VITAL SIGNS Height 66 in 2016-01-23 Weight 141 lbs 2016-01-23 Heart Rate 76 bpm 2016-01-23 Respiratory Rate 20 2016-01-23 BMI 22.76 kg/m2 2016-01-23 Blood pressure systolic 102 mmHg 2016-01-23 Blood pressure diastolic 64 mmHg 2016-01-23 MEDICATIONS Medication Instructions Dosage Frequency Start Date End Date Duration Status Trazodone HCl 50 mg Orally Once a day 1/2 tablet at bedtime as needed 24h Dec, Active Protonix 40 mg Orally Once a day 1 tablet 24h Active Simvastatin 40 mg Orally Once a day 1 tablet by Oral route 24h Dec, Active Blood Glucose Test one touch ultra mini test blood sugar 8h Jun, Active Lisinopril 5 mg Orally Once a day 1 tablet by Oral route 1 time per day 24h Dec, Active Symbicort 80-4.5 MCG/ACT Inhalation Twice a day 2 puffs 12h Active GlipiZIDE 5 mg Orally Once a day 1 tablet by Oral route 24h Dec, Active Aspirin 81 MG Orally Once a day 1 tablet by Oral route 1 time per day 24h Apr, Active Albuterol Sulfate 90 mcg/actuation Inhalation every 4 hrs 2 puffs by Inhalation route every 4-6 hours as needed PRN cough or wheezing or SOB 4h Dec, Active Metformin HCl 1000 MG Orally Twice a day 1 tablet with meals 12h Jun, Active Lancets 33 gauge 1 time per day ONE TOUCH [employer] LANCETS. DX: 250.02 6h Mar, Active RESULTS Name Result Date Reference Range A1C (IN HOUSE) 2016-01-23 A1C IN HOUSE 6.2 4.3 - 5.6 % Previous A1c 6.5 Lot [id number] Exp date 11/16 MICROALBUMIN, URINE (IN HOUSE) 2016-01-23 MICROALBUMIN normal Lot # [id number] Exp date 12/16 Clarity clear Color yellow ALB 10mg/L CRE 300mg/dL A:C (IN HOUSE) <30mg/g Control Control Lot # Exp date Xray : Tibia/Fibula, Right (IN HOUSE) 2016-01-23 PROCEDURES Procedure Date Ordered Related Diagnosis Body Site GLYCATED HEMOGLOBIN TEST Jan 23, 2016 MICROALBUMIN, SEMIQUANT Jan 23, 2016 [facility] Jan [facility], 2016 X-RAY EXAM OF LOWER LEG Jan 23, 2016 Office Visit, Est Pt., Level 3 Jan 23, 2016 [facility] VISIT ESTABLISHED PATIENT Jan 23, 2016 IMMUNIZATIONS No Known Immunizations
--- OUTSIDE RECORDS SUMMARY | 2018-02-09 14:32 | XMS REPORT ---
Author Author TERESA JOHNSON [facility] [employer] Address Unknown Phone Unavailable Care Team Providers Care Credit Card Specialist Name Role Phone TERESA JOHNSON CP Unavailable [...] Other abnormal blood chemistry 790.6 Active Medications No Known Medications Results No Known Results Summary Purpose [employer] Submission
--- OUTSIDE RECORDS SUMMARY | 2018-02-09 14:33 | XMS REPORT ---
Author Author RIANNA BRADY Organization [facility] Address [address] [place] [address] Care Team Providers Care Brand Director Name Role Phone BRADYVANE FajardoELE Unavailable PROBLEMS Type Condition ICD9-CM Code RPF00-TX Code Onset Dates Condition Status SNOMED Code Problem Other hammer toe(s) (acquired), left foot M20.42 Active 86090482 Problem Type 2 diabetes mellitus with diabetic neuropathy E11.40 Active 5163875270039 Problem Other hammer toe(s) (acquired), right foot M20.41 Active 693098163 Problem Chronic periodontitis K05.30 Active 2967050 Problem Vitamin D deficiency E55.9 Active 79100675 Problem Chronic kidney disease, stage III (moderate) N18.3 Active 002834913 Problem Thrombocytopenia D69.6 Active 793895409 Problem Hallux valgus (acquired), right foot M20.11 Active 815878283 Problem Ventral hernia without obstruction or gangrene K43.9 Active 895576616 Problem Osteoarthritis of spine with radiculopathy, lumbar region M47.26 Active 170678146 Problem DM neuro manif type II E11.49 Active 39319108 Problem Type 2 diabetes mellitus with hyperglycemia E11.65 Active 354064833050036 Problem Hepatitis C B19.20 Active 38590816 Problem Peripheral neuropathy G62.9 Active 57132400 Problem Hyperlipidemia E78.5 Active 65222113 Problem OM (onychomycosis) B35.1 Active 188016930 Problem Hepatic lesion K76.9 Active 466548999 Problem COPD (chronic obstructive pulmonary disease) J44.9 Active 49938984 Problem Cirrhosis of liver without ascites, unspecified hepatic cirrhosis type K74.60 Active 40784709 Problem GERD (gastroesophageal reflux disease) K21.9 Active 198975484 Problem Hallux rigidus M20.20 Active 032206070 ALLERGIES No Information ENCOUNTERS Encounter Location Date Diagnosis [facility] [address] [facility] [id number] [address] Nov, [facility] [id number] [place] [address] 108384- 6426 Oct, [facility] [id number] [place] [address] 21204- 9915 August, Onychomycosis B35.1 and Type 2 diabetes mellitus with diabetic neuropathy E11.40 [place] [address] 313498- 4191 August, Type 2 diabetes mellitus with hyperglycemia E11.65 [facility] [id number] [place] [address] 757456- 4965 August, Chronic kidney disease, stage III (moderate) N18.3 [place] [id number] [place] [address] 965092- 0654 August, Chronic kidney disease, stage III (moderate) N18.3 [facility] [id number] [place] [address] [id number] Jul, Dental examination Z01.20 [place] [id number] [place] [address] 16352- 2027 Jun, [facility] [place] [id number] [place] [address] 85231- 3335 Jun, [place] [id number] [place] [address] 69319- 0845 Jun, [facility] [place] [id number] [place] [address] 42445- 5593 Jun, Chronic periodontitis K05.30 ; Dental caries K02.9 and Dental examination Z01.20 [place] [id number] [place] [address] 59134- 1051 Jun, Type 2 diabetes mellitus with hyperglycemia [...] Ventral hernia without obstruction or gangrene K43.9 [place] [address] 11624- 6417 Jun, COPD (chronic obstructive pulmonary disease) J44.9 [place] [address] 52775- 5638 Jun, Type 2 diabetes mellitus with diabetic neuropathy E11.40 and Onychomycosis B35.[address] 29219- 6422 May, Hyperlipidemia E78.5 ; Cirrhosis of liver without ascites, unspecified hepatic cirrhosis type K74.60 ; Renal cell carcinoma, left C64.2 ; Hepatic lesion K76.9 ; Hepatitis C B19.20 ; Type 2 diabetes mellitus with hyperglycemia E11.65 and COPD (chronic obstructive pulmonary disease) J44.9 [place] [id number] [place] [address] 23698- 5505 May, Hyperlipidemia E78.5 and Chronic kidney disease, stage III ( moderate) N18.3 [place] [id number] [place] [address] 34080- 8975 Apr, Type 2 diabetes mellitus with diabetic neuropathy E11.40 ; Hyperlipidemia E78.5 ; COPD (chronic obstructive pulmonary disease) J44.9 and Osteoarthritis of spine with radiculopathy, lumbar region M47.26 [facility] [place] [id number] [place] [address] 80667- 8935 Apr, [facility] [place] [id number] [place] [address] 97883- 6556 Mar, Type 2 diabetes mellitus with diabetic neuropathy E11.40 ; Hyperlipidemia E78.5 ; COPD (chronic obstructive pulmonary disease) J44.9 and Osteoarthritis of spine with radiculopathy, lumbar region M47.26 [place] [address] 56484- 1413 Mar, Onychomycosis B35.1 and DM neuro manif type II E11.49 [place] [address] 51681- 0184 Mar, Hepatitis C B19.20 [place] [address] 48862- 5161 Mar, Hepatitis C B19.20 [place] [address] 883132- 5683 Jan, COPD (chronic obstructive pulmonary disease) J44.9 [place] [address] 94782- 9445 Jan, [place] [address] 76506- 7539 Nov, Elevated serum creatinine R79.89 [place] [address] 29126- 0274 Nov, Elevated serum creatinine R79.89 [place] [address] 16554- 8099 Nov, [place] [address] 08279- 6512 Nov, Onychomycosis B35.1 ; Hallux valgus (acquired), right foot M20.11 and DM neuro manif type II E11.49 [place] [address] 16483- 4182 Nov, [place] [address] 99296- 1818 Oct, Type 2 diabetes mellitus with hyperglycemia E11.65 ; Hyperlipidemia E78.5 ; COPD (chronic obstructive pulmonary disease) J44.9 and GERD (gastroesophageal reflux disease) K21.9 [place] [id number] [place] [address] 16881- 5544 Sep, COPD (chronic obstructive pulmonary disease) J44.9 ; Type 2 diabetes mellitus with hyperglycemia E11.65 ; Hyperlipidemia E78.5 and GERD ( gastroesophageal reflux disease) K21.9 [place] [address] 84166- 9826 August, [place] [address] 74539- 1716 August, Type 2 diabetes mellitus with hyperglycemia E11.[address] 08298- 0227 August, Onychomycosis B35.1 ; Other hammer toe(s) (acquired), right foot M20.41 and Type 2 diabetes mellitus with diabetic neuropathy E11.40 [place] [address] 19068- 0909 Jul, Elevated serum creatinine R79.89 [place] [address] 07350- 6561 Jul, COPD (chronic obstructive pulmonary disease) J44.9 and Ventral hernia without obstruction or gangrene K43.9 [place] [id number] [place] [address] 92356- 8377 Jul, Elevated serum creatinine R79.89 [place] [id number] [place] [address] 53498- 2684 Jun, [place] [id number] [place] [address] 69804- 0713 Jun, [address] 04593- 1445 Jun, Type 2 diabetes mellitus with hyperglycemia E11.65 ; Hyperlipidemia E78.5 ; GERD (gastroesophageal reflux disease) K21.9 and Hepatitis C B19.20 [place] [address] 98462- 6741 Jun, Hepatitis C B19.[address] 18103- 4442 Jun, Type 2 diabetes mellitus with hyperglycemia E11.65 ; Hyperlipidemia E78.5 ; COPD (chronic obstructive pulmonary disease) J44.9 ; GERD (gastroesophageal reflux disease) K21.9 ; Peripheral neuropathy G62.9 and Hepatitis C B19.[address] 41059- 6057 Jun, Onychomycosis B35.1 ; Hallux rigidus M20.20 ; Other hammer toe(s) (acquired), left foot M20.42 and Other hammer toe(s) (acquired), right foot M20.[address] 82698- 3031 Jun, Type 2 diabetes mellitus with hyperglycemia E11.65 and Hyperlipidemia E78.[address] 67961- 8346 Mar, Hepatitis C B19.20 ; Hepatic lesion K76.9 and Cirrhosis of liver without ascites, unspecified hepatic cirrhosis type K74.[address] 91721- 0292 Mar, Onychomycosis B35.1 and Hallux rigidus M20.[address] 97316- 3552 Dec, [address] 24983- 9213 Dec, Type 2 diabetes mellitus with hyperglycemia E11.65 ; Right leg injury, initial encounter S89.91XA ; Hyperlipidemia E78.5 ; COPD (chronic obstructive pulmonary disease) J44.9 ; GERD (gastroesophageal reflux disease) K21.9 ; Insomnia due to medical condition G47.01 and Renal cell carcinoma, left C64.[address] 35765- 6344 Dec, [place] [id number] [place] [address] 56158- 3902 Nov, Onychomycosis B35.1 and DM neuro manif type II E11.49 [place] [id number] [place] [address] 22880- 6383 Oct, Hepatitis C B19.20 [place] [address] 04979- 6538 Oct, Hepatic lesion K76.9 and Cirrhosis of liver without ascites , unspecified hepatic cirrhosis type K74.[address] 563855- 2298 Sep, Renal mass N28.89 ; Hepatic lesion K76.9 and Renal cell carcinoma, left C64.[address] 35018- 7551 Sep, Lesion of liver K76.9 [place] [address] 71863- 7828 Sep, Renal mass, right N28.[address] 41903- 6496 Sep, Osteoarthritis of spine with radiculopathy, lumbar region M47.26 [place] [address] 58261- 6897 August, Type 2 diabetes mellitus with hyperglycemia E11.65 ; Hyperlipidemia E78.5 ; Peripheral neuropathy G62.9 ; COPD (chronic obstructive pulmonary disease) J44.9 ; Dorsalgia, unspecified M54.9 ; Pain of left leg M79.605 and Foot pain, left M79.672 [place] [id number] [place] [address] 91104- 7916 Jun, Hepatitis C B19.20 [place] [id number] [place] [address] 95599- 9126 Jun, Onychomycosis B35.1 ; Hallux rigidus M20.20 and DM neuro manif type II E11.[address] 20727- 3652 Jun, Hepatitis C B19.20 and Erectile dysfunction 607.84 [place] [address] 74399- 0463 Jun, Type 2 diabetes mellitus with hyperglycemia E11.65 [place] [address] 36558- 9734 Jun, Hepatitis C B19.[address] 37217- 2370 Jun, [address] 78831- 0985 Jun, Type 2 diabetes mellitus with hyperglycemia E11.[address] 57614- 5296 Jun, Type 2 diabetes mellitus with hyperglycemia E11.65 ; Hyperlipidemia E78.5 ; COPD (chronic obstructive pulmonary disease) J44.9 and Hepatitis C B19.[address] 32686- 2024 05 Jun, 2015 Type 2 diabetes mellitus with hyperglycemia E11.65 ; General medical exam Z00.00 ; Hyperlipidemia E78.5 ; COPD (chronic obstructive pulmonary disease) J44.9 ; Hepatitis C B19.20 ; GERD (gastroesophageal reflux disease) K21.9 ; OM (onychomycosis) B35.1 and Peripheral neuropathy G62.[address] 20579- 1016 Apr, COPD (chronic obstructive pulmonary disease) J44.9 ; Depression F32.9 ; Hyperlipidemia E78.5 and Type 2 diabetes mellitus with hyperglycemia E11.[address] 35095- 4126 Apr, [address] [address]- 9270 Mar, Type 2 diabetes mellitus with hyperglycemia E11.65 [facility] [id number] [place] [address] 83289- 4580 Mar, [facility] [id number] [place] [address] 49102- 0198 Mar, Type 2 diabetes mellitus with hyperglycemia E11.65 [facility] [address] 14937- 0897 Jan, Type 2 diabetes mellitus with hyperglycemia E11.65 ; Type 2 diabetes mellitus with diabetic neuropathy E11.40 ; Chronic hepatitis C B18.2 ; COPD (chronic obstructive pulmonary disease) J44.9 ; Depression F32.9 and Black stool K92.1 [place] [id number] [place] [address] 33593- 3565 Jan, [place] [id number] [place] [address] 93966- 9352 Jan, [facility] [id number] [place] [address] 75534- 0231 Dec, [place] [id number] [place] [address] 00307- 2129 Nov, Erectile dysfunction 607.84 [place] [id number] [place] [address] 00100- 0389 Nov, Depressive disorder, not elsewhere classified 311 [facility] [id number] [place] [address] 59108- 9131 Nov, Depressive disorder, not elsewhere classified [address] [place] [id number] [place] [address] 94212- 7222 Nov, Pyelonephritis 590.80 [place] [id number] [place] [address] 80343- 1307 Oct, Pyelonephritis 590.80 [facility] [id number] [place] [address] 93649- 8847 Oct, Right inguinal pain 789.09 [facility] [address] [address]- 2099 Oct, [facility] [id number] [address]- 0169 Oct, Depressive disorder, not elsewhere classified 311 [facility] [id number] [place] [address] 170057- 7495 Sep, Depressive disorder, not elsewhere classified 311 and No condition on [place] II V71.09 [facility] [address] [place] [address] 580042- 9187 Sep, Diabetes mellitus without mention of complication, type II or unspecified type, uncontrolled 250.02 and Right inguinal pain 789.09 [facility] [address] [address]- 2957 Jul, [facility] [address] [address]- 0881 Jul, [facility] [address] [address]- 0127 May, [facility] [id number] [place] [address] 13068- 3647 Mar, [facility] [address], [place] [address]- 0798 Mar, [facility] [address] [address]- 0807 Dec, [facility] [address] [address]- 8567 Dec, [facility] [address], [place] [address]- 9601 Oct, [facility] [address] [address]- 0636 Oct, [facility] [id number] [place] [address]- 0731 Oct, [facility] [place] [facility] [address] [id number] [place] [address]- 3473 Oct, [facility] [place] [facility] [address] [id number] [place] [address]- 2608 Sep, [facility] [place] [facility] [address] [id number] [place] [address]- 4134 Sep, [facility] [place] [facility] [address] [id number] [place] [address]- 2844 Jun, [facility] [place] [facility] [address] [id number] [place] [address]- 4511 Jun, [facility] [place] [facility] [address] [id number] [place] [address]- 7330 Jun, [facility] [place] [facility] [address] [id number] [place] [address]- 8368 Jun, [facility] [place] [facility] [address] [id number] [place] [address]- 1705 Jun, [facility] [place] [facility] [address] [id number] [place] [address]- 3530 Jun, [facility] [place] [facility] [address] [facility] [id number] [place] [address]- 2390 Jun, [facility] [place] [facility] [address] [id number] [place] [address]- 1215 Jun, [facility] [place] [facility] [address] [id number] [place] [address]- 4791 Apr, [facility] [place] [facility] [address] [id number] [place] 9002 Apr, [facility] [place] [facility] [address] [id number] [place] 6218 Apr, [facility] [place] [facility] [address] [id number] [place] [address]- 6182 Apr, [facility] [place] [facility] [address] [id number] [place] 0290 Apr, [facility] [place] [facility] [address] [id number] [place] [address]- 3080 Apr, [facility] [place] [facility] [address] [id number] [place] [address]- 8312 Apr, [facility] [place] [facility] [address] [id number] [place] [address]- 0147 Apr, [facility] [place] [facility] [address] [id number] [place] 7773 Apr, [facility] [place] [facility] [address] [id number] [place] [address]- 6946 Mar, [facility] [place] [facility] [address] [id number] [place] [address]- 6661 Mar, [facility] [place] [facility] [address] [id number] [place] [address]- 3108 Mar, [facility] [place] [facility] [address] [id number] [place] [address]- 0108 Mar, [facility] [place] [facility] [address] [id number] [place] [address]- 1040 Mar, [facility] [place] [facility] [address] [id number] [place] [address]- 4528 Mar, [facility] [place] [facility] [address] [id number], [place] [address]- 7296 Mar, [facility] [place] [facility] [address] [id number], [place] [address]- 3075 Mar, [facility] [place] [facility] [address] [id number], [place] [address]- 7534 Mar, [facility] [place] [facility] [address] [id number] 1737 Mar, [facility] [place] [facility] [address] [id number], [place] [address]- 1586 Mar, [facility] [address] [facility] [id number] [place] [address]- 3426 Mar, [facility] [address] [facility] [id number], [place] [address]- 4146 Mar, [facility] [address] [facility] [id number] [place] [address]- 3346 Mar, IMMUNIZATIONS No Known Immunizations SOCIAL HISTORY Never Assessed REASON FOR VISIT Requests return call PLAN OF CARE VITAL SIGNS MEDICATIONS Unknown [...]
--- OUTSIDE RECORDS SUMMARY | 2018-02-09 14:33 | XMS REPORT ---
Author Author CHRISTOPHER JENNINGS Organization [facility] Address [address] [place] [address] Care Team Providers Care Laundry Sorter Name Role Phone CHRISTOPHER JENNINGS Unavailable PROBLEMS Type Condition ICD9-CM Code IQE26-VK Code Onset Dates Condition Status SNOMED Code Problem Other hammer toe(s) (acquired), left foot M20.42 Active 25292951 Problem Type 2 diabetes mellitus with diabetic neuropathy E11.40 Active 1924904025687 Problem Other hammer toe(s) (acquired), right foot M20.41 Active 735604085 Problem Chronic periodontitis K05.30 Active 0760162 Problem Vitamin D deficiency E55.9 Active 81651479 Problem Chronic kidney disease, stage III (moderate) N18.3 Active 450266800 Problem Thrombocytopenia D69.6 Active 310909367 Problem Hallux valgus (acquired), right foot M20.11 Active 615687909 Problem Ventral hernia without obstruction or gangrene K43.9 Active 483750376 Problem Osteoarthritis of spine with radiculopathy, lumbar region M47.26 Active 288512579 Problem DM neuro manif type II E11.49 Active 69049723 Problem Type 2 diabetes mellitus with hyperglycemia E11.65 Active 945158084247569 Problem Hepatitis C B19.20 Active 36084983 Problem Peripheral neuropathy G62.9 Active 19439624 Problem Hyperlipidemia E78.5 Active 09746267 Problem OM (onychomycosis) B35.1 Active 825938480 Problem Hepatic lesion K76.9 Active 454956554 Problem COPD (chronic obstructive pulmonary disease) J44.9 Active 88433608 Problem Cirrhosis of liver without ascites, unspecified hepatic cirrhosis type K74.60 Active 30062861 Problem GERD (gastroesophageal reflux disease) K21.9 Active 678909195 Problem Hallux rigidus M20.20 Active 286957138 ALLERGIES No Information ENCOUNTERS Encounter Location Date Diagnosis [facility] [address] [facility] [id number] [address] Nov, [facility] [id number] [place] [address] 372443- 5271 Oct, [facility] [id number] [place] [address] 23666- 9850 August, Onychomycosis B35.1 and Type 2 diabetes mellitus with diabetic neuropathy E11.40 [place] [address] 243108- 8563 August, Type 2 diabetes mellitus with hyperglycemia E11.65 [place] [id number] [place] [address] 904041- 1287 August, Chronic kidney disease, stage III (moderate) N18.3 [place] [id number] [place] [address] 385460- 1206 August, Chronic kidney disease, stage III (moderate) N18.3 [facility] [id number] [place] [address] [id number] Jul, Dental examination Z01.20 [place] [id number] [place] [address] 70607- 3699 Jun, [place] [id number] [place] [address] 66777- 2239 Jun, [place] [id number] [place] [address] 57681- 0949 Jun, [place] [id number] [place] [address] 59298- 3070 Jun, Chronic periodontitis K05.30 ; Dental caries K02.9 and Dental examination Z01.20 [place] [id number] [place] [address] 29771- 4492 Jun, Type 2 diabetes mellitus with hyperglycemia [...] Ventral hernia without obstruction or gangrene K43.9 [place] [address] 16008- 5195 Jun, COPD (chronic obstructive pulmonary disease) J44.9 [place] [address] 59690- 8733 Jun, Type 2 diabetes mellitus with diabetic neuropathy E11.40 and Onychomycosis B35.[address] 98677- 9735 May, Hyperlipidemia E78.5 ; Cirrhosis of liver without ascites, unspecified hepatic cirrhosis type K74.60 ; Renal cell carcinoma, left C64.2 ; Hepatic lesion K76.9 ; Hepatitis C B19.20 ; Type 2 diabetes mellitus with hyperglycemia E11.65 and COPD (chronic obstructive pulmonary disease) J44.9 [place] [id number] [place] [address] 26954- 2662 May, Hyperlipidemia E78.5 and Chronic kidney disease, stage III ( moderate) N18.3 [place] [address] [id number] [place] [address] 08151- 2021 Apr, Type 2 diabetes mellitus with diabetic neuropathy E11.40 ; Hyperlipidemia E78.5 ; COPD (chronic obstructive pulmonary disease) J44.9 and Osteoarthritis of spine with radiculopathy, lumbar region M47.26 [place] [id number] [place] [address] 05718- 5088 Apr, [place] [id number] [place] [address] 04988- 4249 Mar, Type 2 diabetes mellitus with diabetic neuropathy E11.40 ; Hyperlipidemia E78.5 ; COPD (chronic obstructive pulmonary disease) J44.9 and Osteoarthritis of spine with radiculopathy, lumbar region M47.26 [place] [address] 40162- 9201 Mar, Onychomycosis B35.1 and DM neuro manif type II E11.49 [place] [address] 02852- 3558 Mar, Hepatitis C B19.20 [place] [address] 70363- 3627 Mar, Hepatitis C B19.20 [place] [address] 796805- 0304 Jan, COPD (chronic obstructive pulmonary disease) J44.9 [place] [address] 43874- 7329 Jan, [place] [address] 84702- 3363 Nov, Elevated serum creatinine R79.89 [place] [address] 16816- 6370 Nov, Elevated serum creatinine R79.89 [place] [address] 49300- 1877 Nov, [place] [address] 64923- 6054 Nov, Onychomycosis B35.1 ; Hallux valgus (acquired), right foot M20.11 and DM neuro manif type II E11.49 [place] [address] 64389- 0748 Nov, [place] [address] 00954- 2502 Oct, Type 2 diabetes mellitus with hyperglycemia E11.65 ; Hyperlipidemia E78.5 ; COPD (chronic obstructive pulmonary disease) J44.9 and GERD (gastroesophageal reflux disease) K21.9 [place] [id number] [place] [address] 35030- 5929 Sep, COPD (chronic obstructive pulmonary disease) J44.9 ; Type 2 diabetes mellitus with hyperglycemia E11.65 ; Hyperlipidemia E78.5 and GERD ( gastroesophageal reflux disease) K21.9 [place] [address] 49764- 0591 August, [place] [address] 55293- 3788 August, Type 2 diabetes mellitus with hyperglycemia E11.[address] 74079- 6727 August, Onychomycosis B35.1 ; Other hammer toe(s) (acquired), right foot M20.41 and Type 2 diabetes mellitus with diabetic neuropathy E11.40 [place] [address] 20641- 9663 Jul, Elevated serum creatinine R79.89 [place] [address] 74781- 4098 Jul, COPD (chronic obstructive pulmonary disease) J44.9 and Ventral hernia without obstruction or gangrene K43.9 [place] [id number] [place] [address] 80177- 1147 Jul, Elevated serum creatinine R79.89 [place] [address] [id number] [place] [address] 93643- 8254 Jun, [place] [id number] [place] [address] 89400- 6844 Jun, [address] 84604- 9192 Jun, Type 2 diabetes mellitus with hyperglycemia E11.65 ; Hyperlipidemia E78.5 ; GERD (gastroesophageal reflux disease) K21.9 and Hepatitis C B19.20 [place] [address] 89678- 1164 Jun, Hepatitis C B19.[address] 48970- 6666 Jun, Type 2 diabetes mellitus with hyperglycemia E11.65 ; Hyperlipidemia E78.5 ; COPD (chronic obstructive pulmonary disease) J44.9 ; GERD (gastroesophageal reflux disease) K21.9 ; Peripheral neuropathy G62.9 and Hepatitis C B19.[address] 44158- 7010 Jun, Onychomycosis B35.1 ; Hallux rigidus M20.20 ; Other hammer toe(s) (acquired), left foot M20.42 and Other hammer toe(s) (acquired), right foot M20.[address] 92992- 8173 Jun, Type 2 diabetes mellitus with hyperglycemia E11.65 and Hyperlipidemia E78.[address] 37240- 7597 Mar, Hepatitis C B19.20 ; Hepatic lesion K76.9 and Cirrhosis of liver without ascites, unspecified hepatic cirrhosis type K74.[address] 57644- 5552 Mar, Onychomycosis B35.1 and Hallux rigidus M20.[address] 90984- 7370 Dec, [address] 99753- 6762 Dec, Type 2 diabetes mellitus with hyperglycemia E11.65 ; Right leg injury, initial encounter S89.91XA ; Hyperlipidemia E78.5 ; COPD (chronic obstructive pulmonary disease) J44.9 ; GERD (gastroesophageal reflux disease) K21.9 ; Insomnia due to medical condition G47.01 and Renal cell carcinoma, left C64.[address] 40846- 4077 Dec, [place] [id number] [place] [address] 87755- 5041 Nov, Onychomycosis B35.1 and DM neuro manif type II E11.49 [place] [address] [address] [id number] [place] [address] 51000- 9997 Oct, Hepatitis C B19.20 [place] [address] 01622- 4970 Oct, Hepatic lesion K76.9 and Cirrhosis of liver without ascites , unspecified hepatic cirrhosis type K74.[address] 891768- 2256 Sep, Renal mass N28.89 ; Hepatic lesion K76.9 and Renal cell carcinoma, left C64.[address] 78192- 6118 Sep, Lesion of liver K76.9 [place] [address] 62560- 8447 Sep, Renal mass, right N28.[address] 28588- 4982 Sep, Osteoarthritis of spine with radiculopathy, lumbar region M47.26 [place] [address] 11880- 8021 August, Type 2 diabetes mellitus with hyperglycemia E11.65 ; Hyperlipidemia E78.5 ; Peripheral neuropathy G62.9 ; COPD (chronic obstructive pulmonary disease) J44.9 ; Dorsalgia, unspecified M54.9 ; Pain of left leg M79.605 and Foot pain, left M79.672 [place] [address] [id number] [place] [address] 00507- 1698 Jun, Hepatitis C B19.20 [place] [address] [id number] [place] [address] 76521- 8807 Jun, Onychomycosis B35.1 ; Hallux rigidus M20.20 and DM neuro manif type II E11.[address] 56177- 8428 Jun, Hepatitis C B19.20 and Erectile dysfunction 607.84 [place] [address] 07835- 6982 Jun, Type 2 diabetes mellitus with hyperglycemia E11.65 [place] [address] 60295- 2507 Jun, Hepatitis C B19.[address] 57915- 9842 Jun, [address] 95854- 8580 Jun, Type 2 diabetes mellitus with hyperglycemia E11.[address] 39762- 4268 Jun, Type 2 diabetes mellitus with hyperglycemia E11.65 ; Hyperlipidemia E78.5 ; COPD (chronic obstructive pulmonary disease) J44.9 and Hepatitis C B19.[address] 69932- 6300 05 Jun, 2015 Type 2 diabetes mellitus with hyperglycemia E11.65 ; General medical exam Z00.00 ; Hyperlipidemia E78.5 ; COPD (chronic obstructive pulmonary disease) J44.9 ; Hepatitis C B19.20 ; GERD (gastroesophageal reflux disease) K21.9 ; OM (onychomycosis) B35.1 and Peripheral neuropathy G62.[address] 69610- 5467 Apr, COPD (chronic obstructive pulmonary disease) J44.9 ; Depression F32.9 ; Hyperlipidemia E78.5 and Type 2 diabetes mellitus with hyperglycemia E11.[address] 74665- 1213 Apr, [address] [address]- 8197 Mar, Type 2 diabetes mellitus with hyperglycemia E11.65 [facility] [id number] [place] [address] 55908- 6250 Mar, [facility] [id number] [place] [address] 97447- 3483 Mar, Type 2 diabetes mellitus with hyperglycemia E11.65 [facility] [address] 19260- 5860 Jan, Type 2 diabetes mellitus with hyperglycemia E11.65 ; Type 2 diabetes mellitus with diabetic neuropathy E11.40 ; Chronic hepatitis C B18.2 ; COPD (chronic obstructive pulmonary disease) J44.9 ; Depression F32.9 and Black stool K92.1 [place] [id number] [place] [address] 36541- 1423 Jan, [place] [address] [address] [id number] [place] [address] 69980- 5899 Jan, [facility] [id number] [place] [address] 81682- 8910 Dec, [place] [id number] [place] [address] 80737- 7965 Nov, Erectile dysfunction 607.84 [place] [address] [id number] [place] [address] 54633- 0400 Nov, Depressive disorder, not elsewhere classified 311 [facility] [id number] [place] [address] 20008- 6603 Nov, Depressive disorder, not elsewhere classified 311 [place] [address] [id number] [place] [address] 86758- 5344 Nov, Pyelonephritis 590.80 [place] [address] [address] [id number] [place] [address] 66581- 5759 Oct, Pyelonephritis 590.80 [facility] [id number] [place] [address] 20723- 4047 Oct, Right inguinal pain 789.09 [facility] [address] [address]- 3461 Oct, [facility] [address] [id number] [address]- 4779 Oct, Depressive disorder, not elsewhere classified 311 [facility] [id number] [place] [address] 648878- 7208 Sep, Depressive disorder, not elsewhere classified 311 and No condition on Bee II V71.09 [facility] [address] [place] [address] 825321- 3110 Sep, Diabetes mellitus without mention of complication, type II or unspecified type, uncontrolled 250.02 and Right inguinal pain 789.09 [facility] [address] [address]- 8204 Jul, [facility] [address] [address]- 7369 Jul, [facility] [address] [address]- 4596 May, [facility] [id number] [place] [address] 13530- 9559 Mar, [facility] [address] [address]- 5935 Mar, [facility] [address] [address]- 2069 Dec, [facility] [address] [address]- 0137 Dec, [facility] [address] [address]- 3367 Oct, [facility] [address] [address]- 5551 Oct, [facility] [id number] [place] [address]- 0373 Oct, [facility] [place] [facility] [address] [id number] [place] [address]- 7762 Oct, [facility] [place] [facility] [address] [id number] [place] [address]- 8412 Sep, [facility] [place] [facility] [address] [id number] [place] [address]- 6670 Sep, [facility] [place] [facility] [address] [id number] [place] [address]- 5865 Jun, [facility] [place] [facility] [address] [id number] [place] [address]- 2673 Jun, [facility] [place] [facility] [address] [id number] [place] [address]- 7346 Jun, [facility] [place] [facility] [address] [id number] [place] [address]- 2652 Jun, [facility] [place] [facility] [address] [id number] [place] [address]- 1515 Jun, [facility] [place] [facility] [address] [id number] [place] [address]- 9619 Jun, [facility] [place] [facility] [address] [facility] [id number] [place] [address]- 0246 Jun, [facility] [place] [facility] [address] [id number] [place] [address]- 7086 Jun, [facility] [place] [facility] [address] [id number] [place] [address]- 0130 Apr, [facility] [place] [facility] [address] [id number] [place] 9670 Apr, [facility] [place] [facility] [address] [id number] [place] 1595 Apr, [facility] [place] [facility] [address] [id number] [place] [address]- 1817 Apr, [facility] [place] [facility] [address] [id number] [place] 2931 Apr, [facility] [place] [facility] [address] [id number] [place] [address]- 3413 Apr, [facility] [place] [facility] [address] [id number] [place] [address]- 6436 Apr, [facility] [place] [facility] [address] [id number] [place] [address]- 8212 Apr, [facility] [place] [facility] [address] [id number] [place] 9766 Apr, [facility] [place] [facility] [address] [id number] [place] [address]- 6030 Mar, [facility] [place] [facility] [address] [id number] [place] [address]- 0965 Mar, [facility] [place] [facility] [address] [id number] [place] [address]- 9614 Mar, [facility] [place] [facility] [address] [id number] [place] [address]- 1149 Mar, [facility] [place] [facility] [address] [id number] [place] [address]- 3827 Mar, [facility] [place] [facility] [address] [id number] [place] [address]- 4761 Mar, [facility] [place] [facility] [address] [id number], [place] [address]- 6207 Mar, [facility] [place] [facility] [address] [id number], [place] [address]- 9235 Mar, [facility] [place] [facility] [address] [id number], [place] [address]- 5480 Mar, [facility] [place] [facility] [address] [id number]- 8364 Mar, [facility] [place] [facility] [address] [id number], [place] [address]- 2636 Mar, [facility] [address] [facility] [id number] [place] [address]- 6796 Mar, [facility] [address] [facility] [id number] [address]- 0736 Mar, [facility] [address] [facility] [id number] [place] [address]- 4986 Mar, IMMUNIZATIONS No Known Immunizations SOCIAL HISTORY Never Assessed REASON FOR VISIT 3 month f/u. Consult Dr. Jennings; Cristhian RT(R) PLAN OF CARE Activity Details Follow Up 3 Months Reason: VITAL SIGNS MEDICATIONS Unknown Medications RESULTS No Results PROCEDURES Procedure Date Ordered Result Body Site DEBRIDE NAIL, 6 OR MORE Mar 18, 2017 [facility] VISIT ESTABLISHED PATIENT Mar 18, 2017 INSTRUCTIONS MEDICATIONS ADMINISTERED No Known Medications [...]
--- OUTSIDE RECORDS SUMMARY | 2018-02-09 14:34 | XMS REPORT ---
Author Author RIANNA BRADY Organization [employer] Address Unknown Phone Unavailable Care Team Providers Care Sales And Marketing Analyst Name Role Phone RIANNA BRADY CP Unavailable Allergies No Known Allergies Problems Problem Type Condition Code Onset Dates Condition Status Assessment Hyperlipidemia E78.5 Active Problem Peripheral neuropathy G62.9 Active Assessment Type 2 diabetes mellitus with hyperglycemia E11.65 Active Assessment Hepatitis C B19.20 Active Assessment COPD (chronic obstructive pulmonary disease) J44.9 Active Problem General medical exam Z00.00 Active Problem Hyperlipidemia E78.5 Active Problem Type 2 diabetes mellitus with hyperglycemia E11.65 Active Problem GERD (gastroesophageal reflux disease) K21.9 Active Problem OM (onychomycosis) B35.1 Active Problem COPD (chronic obstructive pulmonary disease) J44.9 Active Problem Hepatitis C B19.20 Active Medications No Known Medications Procedures Procedure Coding System Code Date VENIPUNCT, ROUTINE* CPT-4 13568 Jun 12, 2015 [facility] NO[facility] Jun 12, 2015 Results Name Result Date Reference Range Unit Abnormality Flag ROUTINE VENIPUNCTURE Summary Purpose [employer] Submission
--- OUTSIDE RECORDS SUMMARY | 2018-02-09 14:34 | XMS REPORT ---
Author Author TERESA JOHNSON [facility] [employer] Address Unknown Phone Unavailable Care Team Providers Care Foundry Helper Name Role Phone TERESA JOHNSON CP Unavailable Allergies No Known Allergies Problems Problem Type Condition ICD-9 Code Onset [...]
--- OUTSIDE RECORDS SUMMARY | 2018-02-09 14:34 | XMS REPORT ---
Author Author RIANNA BRADY Organization [employer] Address Unknown Phone Unavailable Care Team Providers Care Kiln Transfer Operator Name Role Phone RIANNA BRADY CP Unavailable Allergies No Known Allergies Problems Problem Type Condition Code Onset Dates Condition Status Problem General medical exam Z00.00 Active Problem DM neuro manif type II E11.49 Active Problem Type 2 diabetes mellitus with hyperglycemia E11.65 Active Problem Insomnia due to medical condition G47.01 Active Problem Hallux rigidus M20.20 Active Problem Right leg injury, initial encounter S89.91XA Active Problem Hepatic lesion K76.9 Active Problem Renal cell carcinoma, left C64.2 Active Problem Cirrhosis of liver without ascites, unspecified hepatic cirrhosis type K74.60 Active Problem Renal mass N28.89 Active Problem GERD (gastroesophageal reflux disease) K21.9 Active Problem Hepatitis C B19.20 Active Problem Peripheral neuropathy G62.9 Active Problem COPD (chronic obstructive pulmonary disease) J44.9 Active Problem OM (onychomycosis) B35.1 Active Problem Hyperlipidemia E78.5 Active Medications Medication Code System Code Instructions Start Date End Date Status Dosage Advair Diskus [facility] [address]-65 250-50 MCG/DOSE Inhalation Twice a day September 30, 2015 1 puff Results No Known Results Summary Purpose [employer] Submission
--- OUTSIDE RECORDS SUMMARY | 2018-02-09 14:34 | XMS REPORT ---
Author Author CHRISTOPHER JENNINGS Organization [facility] Address [address] [place] [address] Care Team Providers Care Waxer Operator Name Role Phone CHRISTOPHER JENNINGS Unavailable PROBLEMS Type Condition ICD9-CM Code MEH65-WB Code Onset Dates Condition Status SNOMED Code Problem Other hammer toe(s) (acquired), left foot M20.42 Active 29828279 Problem Type 2 diabetes mellitus with diabetic neuropathy E11.40 Active [id number] Problem Other hammer toe(s) (acquired), right foot M20.41 Active 474899902 Problem Chronic periodontitis K05.30 Active 9623516 Problem Vitamin D deficiency E55.9 Active 45864182 Problem Chronic kidney disease, stage III (moderate) N18.3 Active 362317435 Problem Hallux valgus (acquired), right foot M20.11 Active 769832474 Problem Ventral hernia without obstruction or gangrene K43.9 Active 079853711 Problem Osteoarthritis of spine with radiculopathy, lumbar region M47.26 Active 505865745 Problem DM neuro manif type II E11.49 Active 52352226 Problem Type 2 diabetes mellitus with hyperglycemia E11.65 Active 623127152756330 Problem Hepatitis C B19.20 Active 35851710 Problem Peripheral neuropathy G62.9 Active 70421683 Problem Hyperlipidemia E78.5 Active 35507910 Problem OM (onychomycosis) B35.1 Active 716197732 Problem Hepatic lesion K76.9 Active 512276867 Problem COPD (chronic obstructive pulmonary disease) J44.9 Active 59013884 Problem Cirrhosis of liver without ascites, unspecified hepatic cirrhosis type K74.60 Active 10405830 Problem GERD (gastroesophageal reflux disease) K21.9 Active 239281931 Problem Hallux rigidus M20.20 Active 861244001 ALLERGIES No Information ENCOUNTERS Encounter Location Date Diagnosis [facility] [address] [facility]NOTE 3] [id number] [address] August, [facility] [address] [facility] [id number] [id number] Jul, Dental examination Z01.20 [place] [address], [place] [address] Jun, [facility] [address], [place] [address] Jun, [facility] [address] [place] [id number] [place] [address] 06269- 1165 Jun, [place] [address] [place] [address] 86519- 4204 Jun, Chronic periodontitis K05.30 ; Dental caries K02.9 and Dental examination Z01.20 [place] [address], [place] [address] Jun, Type 2 diabetes mellitus with hyperglycemia [...] Ventral hernia without obstruction or gangrene K43.9 [place] [address] [place] [id number] [address] Jun, COPD (chronic obstructive pulmonary disease) J44.9 [place] [address] [place] [id number] [place] [address] 17795- 8350 16 Jun, 2017 Type 2 diabetes mellitus with diabetic neuropathy E11.40 and Onychomycosis B35.1 [place] [address] [place] [address] 06271- 8913 May, Hyperlipidemia E78.5 ; Cirrhosis of liver without ascites, unspecified hepatic cirrhosis type K74.60 ; Renal cell carcinoma, left C64.2 ; Hepatic lesion K76.9 ; Hepatitis C B19.20 ; Type 2 diabetes mellitus with hyperglycemia E11.65 and COPD (chronic obstructive pulmonary disease) J44.9 [place] [address] [place] [id number] [place] [address] 21179- 5284 May, Hyperlipidemia E78.5 and Chronic kidney disease, stage III ( moderate) N18.3 [place] [address] [address]- 1901 Apr, Type 2 diabetes mellitus with diabetic neuropathy E11.40 ; Hyperlipidemia E78.5 ; COPD (chronic obstructive pulmonary disease) J44.9 and Osteoarthritis of spine with radiculopathy, lumbar region M47.26 [place] [address] [address]- 8224 Apr, [address] [address]- 1163 Mar, Type 2 diabetes mellitus with diabetic neuropathy E11.40 ; Hyperlipidemia E78.5 ; COPD (chronic obstructive pulmonary disease) J44.9 and Osteoarthritis of spine with radiculopathy, lumbar region M47.26 [place] [address] [place] [id number] [place] [address] 97230- 0886 Mar, Onychomycosis B35.1 and DM neuro manif type II E11.49 [place] [address] 46195- 9870 Mar, Hepatitis C B19.[address] 69918- 2931 Mar, Hepatitis C B19.20 [place] [address] 71269- 5785 Jan, COPD (chronic obstructive pulmonary disease) J44.9 [place] [address] 66709- 1436 Jan, [place] [address] [place] [id number] [place] [address] 29066- 6897 Nov, Elevated serum creatinine R79.89 [place] [address] [place] [id number] [place] [address] 46707- 5815 Nov, Elevated serum creatinine R79.89 [place] [address] [place] [id number] [place] [address] 56670- 0022 Nov, [place] [address] [place] [id number] [place] [address] 71787- 4434 Nov, Onychomycosis B35.1 ; Hallux valgus (acquired), right foot M20.11 and DM neuro manif type II E11.49 [place] [id number] [place] [address] 37600- 6757 Nov, [place] [id number] [place] [address] 99337- 5468 Oct, Type 2 diabetes mellitus with hyperglycemia E11.65 ; Hyperlipidemia E78.5 ; COPD (chronic obstructive pulmonary disease) J44.9 and GERD (gastroesophageal reflux disease) K21.9 [place] [id number] [place] [address] 53174- 8849 Sep, COPD (chronic obstructive pulmonary disease) J44.9 ; Type 2 diabetes mellitus with hyperglycemia E11.65 ; Hyperlipidemia E78.5 and GERD ( gastroesophageal reflux disease) K21.9 [place] [address] [place] [address] 62449- 4696 August, [place] [id number] [place] [address] 06347- 9920 August, Type 2 diabetes mellitus with hyperglycemia E11.65 [place] [id number] [place] [address] 08385- 9628 August, Onychomycosis B35.1 ; Other hammer toe(s) (acquired), right foot M20.41 and Type 2 diabetes mellitus with diabetic neuropathy E11.[address] [place] [address] 95785- 8502 Jul, Elevated serum creatinine R79.89 [place] [address] [place] [id number] [place] [address] 80162- 2696 Jul, COPD (chronic obstructive pulmonary disease) J44.9 and Ventral hernia without obstruction or gangrene K43.9 [place] [address] 59844- 7645 Jul, Elevated serum creatinine R79.89 [place] [address] [place] [id number] [place] [address] 79139- 2257 Jun, [place] [address] 25216- 4238 Jun, [place] [address] [place] [id number] [place] [address] 83184- 4267 Jun, Type 2 diabetes mellitus with hyperglycemia E11.65 ; Hyperlipidemia E78.5 ; GERD (gastroesophageal reflux disease) K21.9 and Hepatitis C B19.20 [place] [address] [place] [id number] [place] [address] 26834- 0032 Jun, Hepatitis C B19.20 [place] [address] [place] [id number] [place] [address] 32663- 0494 Jun, Type 2 diabetes mellitus with hyperglycemia E11.65 ; Hyperlipidemia E78.5 ; COPD (chronic obstructive pulmonary disease) J44.9 ; GERD (gastroesophageal reflux disease) K21.9 ; Peripheral neuropathy G62.9 and Hepatitis C B19.20 [place] [address] [place] [id number] [place] [address] 34589- 8049 Jun, Onychomycosis B35.1 ; Hallux rigidus M20.20 ; Other hammer toe(s) (acquired), left foot M20.42 and Other hammer toe(s) (acquired), right foot M20.41 [place] [address] [place] [id number] [place] [address] 78121- 2491 Jun, Type 2 diabetes mellitus with hyperglycemia E11.65 and Hyperlipidemia E78.5 [place] [address] [place] [id number] [place] [address] 81821- 9162 Mar, Hepatitis C B19.20 ; Hepatic lesion K76.9 and Cirrhosis of liver without ascites, unspecified hepatic cirrhosis type K74.60 [place] [address] [place] [id number] [place] [address] 03051- 3356 Mar, Onychomycosis B35.1 and Hallux rigidus M20.20 [place] [address] [place] [id number] [place] [address] 00611- 3283 Dec, [place] [address] 86976- 0776 Dec, Type 2 diabetes mellitus with hyperglycemia E11.65 ; Right leg injury, initial encounter S89.91XA ; Hyperlipidemia E78.5 ; COPD (chronic obstructive pulmonary disease) J44.9 ; GERD (gastroesophageal reflux disease) K21.9 ; Insomnia due to medical condition G47.01 and Renal cell carcinoma, left C64.2 [place] [address] 43278- 4159 Dec, [place] [address] 63761- 2792 Nov, Onychomycosis B35.1 and DM neuro manif type II E11.49 [place] [address] [place] [id number] [place] [address] 34732- 7151 Oct, Hepatitis C B19.20 [place] [address] [place] [id number] [place] [address] 07307- 5618 Oct, Hepatic lesion K76.9 and Cirrhosis of liver without ascites , unspecified hepatic cirrhosis type K74.60 [place] [address] [place] [id number] [place] [address] 66808- 4746 Sep, Renal mass N28.89 ; Hepatic lesion K76.9 and Renal cell carcinoma, left C64.2 [place] [address] [place] [id number] [place] [address] 14086- 7275 Sep, Lesion of liver K76.9 [place] [address] 11007- 4298 Sep, Renal mass, right N28.89 [place] [address] 19037- 6484 Sep, Osteoarthritis of spine with radiculopathy, lumbar region M47.26 [place] [address] 50640- 3789 August, Type 2 diabetes mellitus with hyperglycemia E11.65 ; Hyperlipidemia E78.5 ; Peripheral neuropathy G62.9 ; COPD (chronic obstructive pulmonary disease) J44.9 ; Dorsalgia, unspecified M54.9 ; Pain of left leg M79.605 and Foot pain, left M79.[address] 10472- 6252 Jun, Hepatitis C B19.20 [place] [address] 34909- 6503 Jun, Onychomycosis B35.1 ; Hallux rigidus M20.20 and DM neuro manif type II E11.49 [place] [id number] [place] [address] 63924- 0482 Jun, Hepatitis C B19.20 and Erectile dysfunction 607.84 [place] [address] [place] [id number] [place] [address] 58070- 3200 Jun, Type 2 diabetes mellitus with hyperglycemia E11.65 [place] [address] [place] [id number] [place] [address] 93254- 7972 Jun, Hepatitis C B19.20 [place] [address] [place] [id number] [place] [address] 47112- 0459 Jun, [place] [address] [place] [id number] [place] [address] 87392- 1862 Jun, Type 2 diabetes mellitus with hyperglycemia E11.65 [place] [address] [place] [id number] [place] [address] 86721- 6080 Jun, Type 2 diabetes mellitus with hyperglycemia E11.65 ; Hyperlipidemia E78.5 ; COPD (chronic obstructive pulmonary disease) J44.9 and Hepatitis C B19.20 [place] [address] 84506- 6945 Jun, Type 2 diabetes mellitus with hyperglycemia E11.65 ; General medical exam Z00.00 ; Hyperlipidemia E78.5 ; COPD (chronic obstructive pulmonary disease) J44.9 ; Hepatitis C B19.20 ; GERD (gastroesophageal reflux disease) K21.9 ; OM (onychomycosis) B35.1 and Peripheral neuropathy G62.9 [place] [address] [place] [id number] [place] [address] 57551- 0485 Apr, COPD (chronic obstructive pulmonary disease) J44.9 ; Depression F32.9 ; Hyperlipidemia E78.5 and Type 2 diabetes mellitus with hyperglycemia E11.65 [place] [address] [place] [id number] [place] [address] 80826- 0268 Apr, [place] [address] 62120- 7082 Mar, Type 2 diabetes mellitus with hyperglycemia E11.65 [place] [address] 49128- 3577 Mar, [place] [address] 99145- 1037 Mar, Type 2 diabetes mellitus with hyperglycemia E11.65 [place] [address] [place] [id number] [place] [address] 25267- 5421 Jan, Type 2 diabetes mellitus with hyperglycemia E11.65 ; Type 2 diabetes mellitus with diabetic neuropathy E11.40 ; Chronic hepatitis C B18.2 ; COPD (chronic obstructive pulmonary disease) J44.9 ; Depression F32.9 and Black stool K92.1 [place] [address] 34057- 1547 Jan, [facility] [address], [place] [address]- 6642 Jan, [facility] [address] [place] [id number] [place] [address] 000551- 1897 Dec, [facility] [address] [place] [address] 36349- 7182 Nov, Erectile dysfunction 607.84 [facility] [address] [place] [id number] [place] [address] 945613- 2104 Nov, Depressive disorder, not elsewhere classified 311 [facility] [address] [place] [id number] [place] [address] 14644- 2925 Nov, Depressive disorder, not elsewhere classified 311 [facility] [address] [place] [id number] [address]- 7251 Nov, Pyelonephritis 590.80 [facility] [address] [place] [id number] [place] [address] 56714- 9363 Oct, Pyelonephritis 590.80 [facility] [address] [place] [id number] [place] [address] 90836- 2714 Oct, Right inguinal pain 789.09 [facility] [address] [place] [address] 09093- 7340 Oct, [facility] [address], [place] [address]- 0060 Oct, Depressive disorder, not elsewhere classified 311 [facility] [address] [place] [address] 93872- 8662 Sep, Depressive disorder, not elsewhere classified 311 and No condition on [place] II V71.09 [facility] [address] [place] [id number] [place] [address] 15735- 0534 Sep, Diabetes mellitus without mention of complication, type II or unspecified type, uncontrolled 250.02 and Right inguinal pain 789.09 [facility] [address] [place] [id number] [place] [address] 28725- 2050 Jul, [facility] [place] [facility] [address] [id number] [place] [address]- 3732 Jul, [facility] [place] [facility] [address] [id number] [place] [address]- 9070 May, [facility] [place] [facility] [address] [id number] [place] [address]- 2223 Mar, [facility] [place] [facility] [address] [id number] [place] [address]- 5204 Mar, [facility] [place] [facility] [address] [id number] [place] [address]- 7544 Dec, [facility] [place] [facility] [address] [id number] [place] [address]- 2031 Dec, [facility] [place] [facility] [address] [id number] [place] [address]- 7201 Oct, [facility] [place] [facility] [address] [id number] [place] [address]- 0547 Oct, [facility] [place] [facility] [address] [id number] [place] [address]- 3558 Oct, [facility] [place] [facility] [address] [id number] [place] [address]- 7300 Oct, [facility] [place] [facility] [address] [id number] [place] [address]- 3058 Sep, [facility] [place] [facility] [address] [id number] [place] [address]- 0261 Sep, [facility] [place] [facility] [address] [id number] [place] [address]- 2369 Jun, [facility] [place] [facility] [address] [id number] [place] [address]- 6370 Jun, [facility] [place] [facility] [address] [id number] [place] [address]- 5349 Jun, [facility] [place] [facility] [address] [id number] [place] [address]- 6488 Jun, [facility] [address] [id number] [place] [address]- 6391 Jun, [facility] [address] [id number] [place]- 5176 Jun, [facility] [address] [id number] [place] [address]- 6116 Jun, [facility] [place] [facility] [address] [id number] [place] [address]- 8618 Jun, [facility] [address] [id number] [place] 9284 Apr, [facility] [address] [id number] [place] [address]- 7994 Apr, [facility] [address] [id number] [place] [address]- 2464 Apr, [facility] [address] [id number] [place] [address]- 2488 Apr, [facility] [address] [id number] [place] [address]- 0112 Apr, [facility] [address] [facility] [id number] [place] [address]- 5877 Apr, [facility] [place] [facility] [address] [id number] [place] [address]- 2496 Apr, [facility] [place] [facility] [address] [id number] [place] [address]- 1411 Apr, [facility] [place] [facility] [address] [id number] [place] [address]- 4427 Apr, [facility] [place] [facility] [address] [id number] [place] [address]- 8511 Mar, [facility] [place] [facility] [address] [id number] [place] [address]- 5915 Mar, [facility] [address], [place] [address]- 1038 Mar, [facility] [address], [place] [address]- 1791 Mar, [facility] [address], [place] [address]- 8874 Mar, [facility] [id number] [place] [address] 50416- 3336 Mar, [facility] [address], [place] [address]- 4580 Mar, [facility] [address] [place] [address] 02852- 8273 Mar, [facility] [id number] [place] [address] 89631- 8604 Mar, [facility] [id number] [place] [address] 56495- 7547 Mar, [facility] [address], [place] [address]- 1018 Mar, [facility] [address], [place] [address]- 6168 Mar, [facility] [address], [place] [address]- 2021 Mar, [facility] [address], [place] [address]- 3340 Mar, IMMUNIZATIONS No Known Immunizations SOCIAL HISTORY Never Assessed REASON FOR VISIT 3 month f/u. Consult Dr. Jennings; Cristhian RT(R) PLAN OF CARE Activity Details Follow Up 3 Months Reason: VITAL SIGNS Height 66 in 2016-12-10 Blood pressure systolic 126 mmHg 2016-12-10 Blood pressure diastolic 60 mmHg 2016-12-10 MEDICATIONS Unknown Medications RESULTS No Results PROCEDURES Procedure Date Ordered Result Body Site [facility] VISIT ESTABLISHED PATIENT Dec 10, 2016 INSTRUCTIONS MEDICATIONS ADMINISTERED No Known Medications [...]
--- OUTSIDE RECORDS SUMMARY | 2018-02-09 14:35 | XMS REPORT ---
Author Author RIANNA BRADY [facility] [place] eClinicalWorks Address Unknown Phone Unavailable Care Team Providers Care Greenhouse Manager Name Role Phone RIANNA BRADY CP Unavailable [...] K74.60 Active Problem Renal mass N28.89 Active Assessment Hepatic lesion K76.9 Active Assessment Hepatitis C B19.20 Active Assessment Cirrhosis of liver without ascites, unspecified hepatic cirrhosis type K74.60 Active Problem GERD (gastroesophageal reflux disease) K21.9 Active Problem Hepatitis C B19.20 Active Problem Peripheral neuropathy G62.9 Active Problem COPD (chronic obstructive pulmonary disease) J44.9 Active Problem OM (onychomycosis) B35.1 Active Problem Hyperlipidemia E78.5 Active Medications No Known Medications Procedures Procedure Coding System Code Date PROTHROMBIN TIME CPT-4 47931 Mar 19, 2016 LAB NOT BILLED BY [facility] CPT-4 NOBLL Mar 19, 2016 HEP C RNA QUANT ([facility] ONLY) CPT-4 54286 Mar 19, 2016 VENIPUNCT, ROUTINE* CPT-4 91859 Mar 19, 2016 Results Name Result Date Reference Range Unit Abnormality Flag PT/INR ----INR 1.1 [id number] 0.8-1.2 ----Prothrombin Time 11.2 30400179 9.1-12.0 sec CMP ----Globulin, Total 3.5 81079607 1.5-4.5 g/dL ----eGFR If Africn Am 78 82875653 >59 mL/min/1.73 ----eGFR If NonAfricn Am 68 20160319 >59 mL/min/1.73 ----Albumin, Serum 3.6 47939040 3.6-4.8 g/dL ----Sodium, Serum 141 39320618 136-144 mmol/L ----Protein, Total, Serum 7.1 24903645 6.0-8.5 g/dL ----BUN/Creatinine Ratio 17 64593861 10-22 ----Calcium, Serum 9.0 17299268 8.6-10.2 mg/dL ----AST (SGOT) 85 76187923 0-40 IU/L H ----Glucose, Serum 177 25301657 65-99 mg/dL H ----Alkaline Phosphatase, S 142 33791986 39-117 IU/L H ----Bilirubin, Total 0.5 09691131 0.0-1.2 mg/dL ----Creatinine, Serum 1.11 20693642 0.76-1.27 mg/dL ----A/G Ratio 1.0 40863824 1.1-2.5 L ----BUN 19 58026633 8-27 mg/dL ----Carbon Dioxide, Total 22 23381215 18-29 mmol/L ----ALT (SGPT) 107 13593926 0-44 IU/L H ----Potassium, Serum 4.4 42873761 3.5-5.2 mmol/L ----Chloride, Serum 103 46191401 97-106 mmol/L ROUTINE VENIPUNCTURE AFP TUMOR MARKER, SERUM ----AFP, Serum, Tumor Marker 89.8 37760304 0.0-8.3 ng/mL H CBC w/ MANUAL DIFF ----RDW 13.9 57577959 12.3-15.4 % ----MCHC 34.8 48466436 31.5-35.7 g/dL ----MCH 32.7 60928273 26.6-33.0 pg ----MCV 94 15283577 79-97 fL ----Hematocrit 37.9 01769191 37.5-51.0 % ----Hemoglobin 13.2 19027295 12.6-17.7 g/dL ----NRBC 0 20160319 0 - 0 % ----RBC 4.04 04609626 4.14-5.80 x10E6/uL L ----WBC 3.2 00643421 3.4-10.8 x10E3/uL L ----Platelet Comment Note: [id number] Adequate ----RBC Comment Note: [id number] Normal ----Hematology Comments: Note: [id number] ----Eos (Absolute Value) 0.2 40667836 0.0-0.4 X10E3/uL ----Basos 0 63839923 % ----Baso(Absolute) 0.0 10499272 0.0-0.2 X10E3/uL ----Neutrophils Absolute 1.9 10239255 1.4-7.0 X10E3/uL ----Lymphs (Absolute) 0.9 08326588 0.7-3.1 X10E3/uL ----Monocytes(Absolute) 0.3 12815855 0.1-0.9 X10E3/uL ----Neutrophils 59 [id number] % ----Lymphs 27 [id number] % ----Monocytes 8 [id number] % ----Eos 6 [id number] % ----Platelets 86 [id number] [phone] x10E3/uL LL Summary Purpose eClinicalWorks Submission
--- OUTSIDE RECORDS SUMMARY | 2018-02-09 14:35 | XMS REPORT ---
Author Author TERESA JOHNSON [facility] eClinicalWorks Address Unknown Phone Unavailable Care Team Providers Care Service Member Name Role Phone TERESA JOHNSON CP Unavailable Allergies No Known Allergies Problems Problem Type Condition Code Onset Dates Condition Status Assessment Type 2 diabetes mellitus with hyperglycemia E11.65 Active Problem COPD (chronic obstructive pulmonary disease) J44.9 Active Problem Chronic hepatitis C B18.2 Active Problem Type 2 diabetes mellitus with hyperglycemia E11.65 Active Problem Type 2 diabetes mellitus with diabetic neuropathy E11.40 Active Problem Black stool K92.1 Active Problem Depression F32.9 Active Problem Erectile dysfunction N52.9 Active Medications No Known Medications Procedures Procedure Coding System Code Date TEST FOR BLOOD, FECES CPT-4 67071 Mar 14, 2015 Results No Known Results Summary Purpose eClinicalWorks Submission
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
--- OUTSIDE RECORDS SUMMARY | 2018-02-09 14:35 | XMS REPORT ---
Author Author RIANNA BRADY Organization [facility] Address [address] [place] [address] Care Team Providers Care Drum Maker Name Role Phone BRADYVANE FajardoELE Unavailable PROBLEMS Type Condition ICD9-CM Code NJW16-EZ Code Onset Dates Condition Status SNOMED Code Problem Other hammer toe(s) (acquired), left foot M20.42 Active 56532246 Problem Type 2 diabetes mellitus with diabetic neuropathy E11.40 Active 8605140018833 Problem Other hammer toe(s) (acquired), right foot M20.41 Active 450576069 Problem Chronic periodontitis K05.30 Active 4262339 Problem Vitamin D deficiency E55.9 Active 39343113 Problem Chronic kidney disease, stage III (moderate) N18.3 Active 468295299 Problem Hallux valgus (acquired), right foot M20.11 Active 230825956 Problem Ventral hernia without obstruction or gangrene K43.9 Active 649283466 Problem Osteoarthritis of spine with radiculopathy, lumbar region M47.26 Active 671791892 Problem DM neuro manif type II E11.49 Active 42066183 Problem Type 2 diabetes mellitus with hyperglycemia E11.65 Active 764690878963329 Problem Hepatitis C B19.20 Active 79583055 Problem Peripheral neuropathy G62.9 Active 52846213 Problem Hyperlipidemia E78.5 Active 40943528 Problem OM (onychomycosis) B35.1 Active 186491702 Problem Hepatic lesion K76.9 Active 180215299 Problem COPD (chronic obstructive pulmonary disease) J44.9 Active 40587316 Problem Cirrhosis of liver without ascites, unspecified hepatic cirrhosis type K74.60 Active 38729272 Problem GERD (gastroesophageal reflux disease) K21.9 Active 469478080 Problem Hallux rigidus M20.20 Active 115039077 ALLERGIES No Information ENCOUNTERS Encounter Location Date Diagnosis [facility] [address] [facility] [id number] [address] August, [facility] [address] [facility] [id number] [id number] Jul, Dental examination Z01.20 [place] [address] [address] Jun, [facility] [address] [address] Jun, [facility] [address] [place] [id number] [place] [address] 42767- 5085 Jun, [place] [address] [place] [address] 79233- 7214 Jun, Chronic periodontitis K05.30 ; Dental caries K02.9 and Dental examination Z01.20 [place] [address] [address] Jun, Type 2 diabetes mellitus with hyperglycemia [...] Ventral hernia without obstruction or gangrene K43.9 [place] [address] [place] [id number] [address] Jun, COPD (chronic obstructive pulmonary disease) J44.9 [place] [address] [place] [id number] [place] [address] 47801- 0395 16 Jun, 2017 Type 2 diabetes mellitus with diabetic neuropathy E11.40 and Onychomycosis B35.1 [place] [address] [place] [address] 38411- 7936 May, Hyperlipidemia E78.5 ; Cirrhosis of liver without ascites, unspecified hepatic cirrhosis type K74.60 ; Renal cell carcinoma, left C64.2 ; Hepatic lesion K76.9 ; Hepatitis C B19.20 ; Type 2 diabetes mellitus with hyperglycemia E11.65 and COPD (chronic obstructive pulmonary disease) J44.9 [place] [address] [place] [id number] [place] [address] 89420- 1052 May, Hyperlipidemia E78.5 and Chronic kidney disease, stage III ( moderate) N18.3 [place] [address] 82864- 0454 Apr, Type 2 diabetes mellitus with diabetic neuropathy E11.40 ; Hyperlipidemia E78.5 ; COPD (chronic obstructive pulmonary disease) J44.9 and Osteoarthritis of spine with radiculopathy, lumbar region M47.26 [place] [address] 32484- 3439 Apr, [address] 57677- 4281 Mar, Type 2 diabetes mellitus with diabetic neuropathy E11.40 ; Hyperlipidemia E78.5 ; COPD (chronic obstructive pulmonary disease) J44.9 and Osteoarthritis of spine with radiculopathy, lumbar region M47.26 [place] [address] [place] [id number] [place] [address] 00735- 6145 Mar, Onychomycosis B35.1 and DM neuro manif type II E11.49 [place] [address] 09495- 6061 Mar, Hepatitis C B19.[address] 72869- 3930 Mar, Hepatitis C B19.20 [place] [address] 51456- 9212 Jan, COPD (chronic obstructive pulmonary disease) J44.9 [place] [address] 48850- 0107 Jan, [place] [address] [place] [id number] [place] [address] 51284- 9946 Nov, Elevated serum creatinine R79.89 [place] [address] [place] [id number] [place] [address] 99521- 1390 Nov, Elevated serum creatinine R79.89 [place] [address] [place] [id number] [place] [address] 75282- 3981 Nov, [place] [address] [place] [id number] [place] [address] 69813- 9523 Nov, Onychomycosis B35.1 ; Hallux valgus (acquired), right foot M20.11 and DM neuro manif type II E11.49 [place] [id number] [place] [address] 40692- 7639 Nov, [place] [id number] [place] [address] 61432- 7184 Oct, Type 2 diabetes mellitus with hyperglycemia E11.65 ; Hyperlipidemia E78.5 ; COPD (chronic obstructive pulmonary disease) J44.9 and GERD (gastroesophageal reflux disease) K21.9 [place] [id number] [place] [address] 23665- 4117 Sep, COPD (chronic obstructive pulmonary disease) J44.9 ; Type 2 diabetes mellitus with hyperglycemia E11.65 ; Hyperlipidemia E78.5 and GERD ( gastroesophageal reflux disease) K21.9 [place] [address] [place] [address] 96738- 6750 August, [place] [id number] [place] [address] 04608- 1656 August, Type 2 diabetes mellitus with hyperglycemia E11.65 [place] [id number] [place] [address] 81905- 7802 August, Onychomycosis B35.1 ; Other hammer toe(s) (acquired), right foot M20.41 and Type 2 diabetes mellitus with diabetic neuropathy E11.40 [address] [place] [address] 25457- 7594 Jul, Elevated serum creatinine R79.89 [place] [address] [place] [id number] [place] [address] 08488- 4936 Jul, COPD (chronic obstructive pulmonary disease) J44.9 and Ventral hernia without obstruction or gangrene K43.9 [place] [address] 62237- 5063 Jul, Elevated serum creatinine R79.89 [place] [address] [place] [id number] [place] [address] 38640- 5188 Jun, [place] [address] 32999- 4834 Jun, [place] [address] [place] [id number] [place] [address] 71489- 5714 Jun, Type 2 diabetes mellitus with hyperglycemia E11.65 ; Hyperlipidemia E78.5 ; GERD (gastroesophageal reflux disease) K21.9 and Hepatitis C B19.20 [place] [address] [place] [id number] [place] [address] 47143- 9894 Jun, Hepatitis C B19.20 [place] [address] [place] [id number] [place] [address] 63872- 4147 Jun, Type 2 diabetes mellitus with hyperglycemia E11.65 ; Hyperlipidemia E78.5 ; COPD (chronic obstructive pulmonary disease) J44.9 ; GERD (gastroesophageal reflux disease) K21.9 ; Peripheral neuropathy G62.9 and Hepatitis C B19.20 [place] [address] [place] [id number] [place] [address] 47376- 8152 Jun, Onychomycosis B35.1 ; Hallux rigidus M20.20 ; Other hammer toe(s) (acquired), left foot M20.42 and Other hammer toe(s) (acquired), right foot M20.41 [place] [address] [place] [id number] [place] [address] 75438- 2617 Jun, Type 2 diabetes mellitus with hyperglycemia E11.65 and Hyperlipidemia E78.5 [place] [address] [place] [id number] [place] [address] 90666- 1202 Mar, Hepatitis C B19.20 ; Hepatic lesion K76.9 and Cirrhosis of liver without ascites, unspecified hepatic cirrhosis type K74.60 [place] [address] [place] [id number] [place] [address] 33258- 0021 Mar, Onychomycosis B35.1 and Hallux rigidus M20.20 [place] [address] [place] [id number] [place] [address] 54594- 1282 Dec, [place] [address] 58931- 5034 Dec, Type 2 diabetes mellitus with hyperglycemia E11.65 ; Right leg injury, initial encounter S89.91XA ; Hyperlipidemia E78.5 ; COPD (chronic obstructive pulmonary disease) J44.9 ; GERD (gastroesophageal reflux disease) K21.9 ; Insomnia due to medical condition G47.01 and Renal cell carcinoma, left C64.2 [place] [address] 92799- 0955 Dec, [place] [address] 22557- 3981 Nov, Onychomycosis B35.1 and DM neuro manif type II E11.49 [place] [address] [place] [id number] [place] [address] 94582- 7584 Oct, Hepatitis C B19.20 [place] [address] [place] [id number] [place] [address] 89320- 3962 Oct, Hepatic lesion K76.9 and Cirrhosis of liver without ascites , unspecified hepatic cirrhosis type K74.60 [place] [address] [place] [id number] [place] [address] 87688- 3940 Sep, Renal mass N28.89 ; Hepatic lesion K76.9 and Renal cell carcinoma, left C64.2 [place] [address] [place] [id number] [place] [address] 64828- 1014 Sep, Lesion of liver K76.9 [place] [address] 86441- 7789 Sep, Renal mass, right N28.89 [place] [address] 70939- 9387 Sep, Osteoarthritis of spine with radiculopathy, lumbar region M47.26 [place] [address] 70989- 4417 August, Type 2 diabetes mellitus with hyperglycemia E11.65 ; Hyperlipidemia E78.5 ; Peripheral neuropathy G62.9 ; COPD (chronic obstructive pulmonary disease) J44.9 ; Dorsalgia, unspecified M54.9 ; Pain of left leg M79.605 and Foot pain, left M79.[address] 07797- 4587 Jun, Hepatitis C B19.20 [place] [address] 92398- 7723 Jun, Onychomycosis B35.1 ; Hallux rigidus M20.20 and DM neuro manif type II E11.49 [place] [id number] [place] [address] 18424- 6274 Jun, Hepatitis C B19.20 and Erectile dysfunction 607.84 [place] [address] [place] [id number] [place] [address] 32730- 2193 Jun, Type 2 diabetes mellitus with hyperglycemia E11.65 [place] [address] [place] [id number] [place] [address] 15134- 0038 Jun, Hepatitis C B19.20 [place] [address] [place] [id number] [place] [address] 08680- 1716 Jun, [place] [address] [place] [id number] [place] [address] 62531- 6083 Jun, Type 2 diabetes mellitus with hyperglycemia E11.65 [place] [address] [place] [id number] [place] [address] 04786- 8826 Jun, Type 2 diabetes mellitus with hyperglycemia E11.65 ; Hyperlipidemia E78.5 ; COPD (chronic obstructive pulmonary disease) J44.9 and Hepatitis C B19.20 [place] [address] 51904- 8269 Jun, Type 2 diabetes mellitus with hyperglycemia E11.65 ; General medical exam Z00.00 ; Hyperlipidemia E78.5 ; COPD (chronic obstructive pulmonary disease) J44.9 ; Hepatitis C B19.20 ; GERD (gastroesophageal reflux disease) K21.9 ; OM (onychomycosis) B35.1 and Peripheral neuropathy G62.9 [place] [address] [place] [id number] [place] [address] 75196- 1855 Apr, COPD (chronic obstructive pulmonary disease) J44.9 ; Depression F32.9 ; Hyperlipidemia E78.5 and Type 2 diabetes mellitus with hyperglycemia E11.65 [place] [address] [place] [id number] [place] [address] 47537- 5324 Apr, [place] [address] 35115- 2245 Mar, Type 2 diabetes mellitus with hyperglycemia E11.65 [place] [address] 96843- 3308 Mar, [place] [address] 19138- 2842 Mar, Type 2 diabetes mellitus with hyperglycemia E11.65 [place] [address] [place] [id number] [place] [address] 26039- 1100 Jan, Type 2 diabetes mellitus with hyperglycemia E11.65 ; Type 2 diabetes mellitus with diabetic neuropathy E11.40 ; Chronic hepatitis C B18.2 ; COPD (chronic obstructive pulmonary disease) J44.9 ; Depression F32.9 and Black stool K92.1 [place] [address] 25703- 0060 Jan, [facility] [address] [address]- 3244 Jan, [facility] [address] [place] [id number] [place] [address] 317018- 9687 Dec, [facility] [address] [place] [address] 58135- 0878 Nov, Erectile dysfunction 607.84 [facility] [address] [place] [id number] [place] [address] 688931- 0699 Nov, Depressive disorder, not elsewhere classified 311 [facility] [address] [place] [id number] [place] [address] 14923- 1256 Nov, Depressive disorder, not elsewhere classified 311 [facility] [address] [place] [id number] [address]- 5468 Nov, Pyelonephritis 590.80 [facility] [address] [place] [id number] [place] [address] 77787- 7760 Oct, Pyelonephritis 590.80 [facility] [address] [place] [id number] [place] [address] 70896- 1328 Oct, Right inguinal pain 789.09 [facility] [address] [place] [address] 08176- 3069 Oct, [facility] [address] [address]- 8105 Oct, Depressive disorder, not elsewhere classified 311 [facility] [address] [place] [address] 47994- 3213 Sep, Depressive disorder, not elsewhere classified 311 and No condition on [place] II V71.09 [facility] [address] [place] [id number] [place] [address] 40320- 9625 Sep, Diabetes mellitus without mention of complication, type II or unspecified type, uncontrolled 250.02 and Right inguinal pain 789.09 [facility] [address] [place] [id number] [place] [address] 70817- 1694 Jul, [facility] [place] [facility] [address] [id number] [place] [address]- 1655 Jul, [facility] [place] [facility] [address] [id number] [place] [address]- 4126 May, [facility] [place] [facility] [address] [id number] [place] [address]- 4264 Mar, [facility] [place] [facility] [address] [id number] [place] [address]- 5648 Mar, [facility] [place] [facility] [address] [id number] [place] [address]- 4470 Dec, [facility] [place] [facility] [address] [id number] [place] [address]- 6838 Dec, [facility] [place] [facility] [address] [id number] [place] [address]- 8830 Oct, [facility] [place] [facility] [address] [id number] [place] [address]- 1810 Oct, [facility] [place] [facility] [address] [id number] [place] [address]- 1469 Oct, [facility] [place] [facility] [address] [id number] [place] [address]- 3875 Oct, [facility] [place] [facility] [address] [id number] [place] [address]- 5508 Sep, [facility] [place] [facility] [address] [id number] [place] [address]- 9299 Sep, [facility] [place] [facility] [address] [id number] [place] [address]- 3447 Jun, [facility] [place] [facility] [address] [id number] [place] [address]- 0303 Jun, [facility] [place] [facility] [address] [id number] [place] [address]- 1008 Jun, [facility] [place] [facility] [address] [id number] [place] [address]- 3413 Jun, [facility] [address] [id number] [place] [address]- 8794 Jun, [facility] [address] [id number] [place]- 9666 Jun, [facility] [address] [id number] [place] [address]- 5146 Jun, [facility] [place] [facility] [address] [id number] [place] [address]- 5414 Jun, [facility] [address] [id number] [place] 6456 Apr, [facility] [address] [id number] [place] [address]- 3466 Apr, [facility] [address] [id number] [place] [address]- 5382 Apr, [facility] [address] [id number] [place] [address]- 5940 Apr, [facility] [address] [id number] [place] [address]- 4806 Apr, [facility] [address] [facility] [id number] [place] [address]- 9088 Apr, [facility] [place] [facility] [address] [id number] [place] [address]- 4716 Apr, [facility] [place] [facility] [address] [id number] [place] [address]- 7733 Apr, [facility] [place] [facility] [address] [id number] [place] [address]- 4239 Apr, [facility] [place] [facility] [address] [id number] [place] [address]- 9996 Mar, [facility] [place] [facility] [address] [id number] [place] [address]- 6589 Mar, [facility] [address] [place] [id number] [address]- 3784 Mar, [facility] [address] [address]- 7908 Mar, [facility] [address] [address]- 8335 Mar, [facility] [address] [address]- 3081 Mar, [facility] [address] [address]- 0280 Mar, [facility] [address] [address]- 9563 Mar, [facility] [address] [place] [address] 77111- 7948 Mar, [facility] [address] [place] [address] 44631- 2852 Mar, [facility] [address] [address]- 5969 Mar, [facility] [address] [place] [id number] [address]- 8803 Mar, [facility] [address] [address]- 0345 Mar, [facility] [address] [place] [id number] [address]- 6330 Mar, IMMUNIZATIONS No Known Immunizations SOCIAL HISTORY Never Assessed REASON FOR VISIT lab order PLAN OF CARE VITAL SIGNS MEDICATIONS Unknown [...]
--- OUTSIDE RECORDS SUMMARY | 2018-02-09 14:35 | XMS REPORT ---
Author Author BRADYRIANNA Fajardo Organization [facility] Address [address] [place] [address] Care Team Providers Care Rail Car Driver Name Role Phone BRADYRIANNA Fajardo Unavailable PROBLEMS Type Condition ICD9-CM Code MGA00-AD Code Onset Dates Condition Status SNOMED Code Problem Cirrhosis of liver without ascites, unspecified hepatic cirrhosis type K74.60 Active 80178684 Problem Insomnia due to medical condition G47.01 Active 84496252 Problem Hallux rigidus M20.20 Active 040984601 Problem Hallux valgus (acquired), right foot M20.11 Active 847027298 Problem Dermatochalasis of right eye, unspecified eyelid H02.833 Active 812870335 Problem DM neuro manif type II E11.49 Active 09770932 Problem Hypermetropia, bilateral H52.03 Active 03917524 Problem Thrombocytopenia D69.6 Active 910481460 Problem Other hammer toe(s) (acquired), right foot M20.41 Active 272768683 Problem Other hammer toe(s) (acquired), left foot M20.42 Active 89402684 Problem Ventral hernia without obstruction or gangrene K43.9 Active 756317139 Problem Type 2 diabetes mellitus with diabetic neuropathy E11.40 Active 7802307556205 Problem COPD (chronic obstructive pulmonary disease) J44.9 Active 83918772 Problem GERD (gastroesophageal reflux disease) K21.9 Active 206907542 Problem Vitamin D deficiency E55.9 Active 67592400 Problem Hepatitis C B19.20 Active 86273868 Problem Hyperlipidemia E78.5 Active 41959188 Problem OM (onychomycosis) B35.1 Active 348671662 Problem 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
--- OUTSIDE RECORDS SUMMARY | 2018-02-09 14:36 | XMS REPORT ---
Author Author RIANNA BRADY Organization [employer] Address Unknown Phone Unavailable Care Team Providers Care Media Relations Director Name Role Phone RIANNA BRADY CP Unavailable Allergies No Known Allergies Problems Problem Type Condition Code Onset Dates Condition Status Problem Peripheral neuropathy G62.9 Active Assessment Type 2 diabetes mellitus with hyperglycemia E11.65 Active Problem General medical exam Z00.00 Active Problem Hyperlipidemia E78.5 Active Problem Type 2 diabetes mellitus with hyperglycemia E11.65 Active Problem GERD (gastroesophageal reflux disease) K21.9 Active Problem OM (onychomycosis) B35.1 Active Problem COPD (chronic obstructive pulmonary disease) J44.9 Active Problem Hepatitis C B19.20 Active Medications Medication Code System Code Instructions Start Date End Date Status Dosage Blood Glucose Test NDC 0 one touch ultra mini 3 times a day Jun 12, 2015 test blood sugar Results No Known Results Summary Purpose [employer] Submission
--- OUTSIDE RECORDS SUMMARY | 2018-02-09 14:36 | XMS REPORT ---
Author Author TERESA JOHNSON [facility] [employer] Address Unknown Phone Unavailable Care Team Providers Care Therapeutic Recreation Leader Name Role Phone TERESA JOHNSON CP Unavailable [...] Active Problem Erectile dysfunction N52.9 Active Medications Medication Code System Code Instructions Start Date End Date Status Dosage Metformin HCl [facility] [id number] 1000 MG Orally Twice a day Mar 31, 2015 1 tablet with meals Results No Known Results Summary Purpose [employer] Submission
--- OUTSIDE RECORDS SUMMARY | 2018-02-09 14:36 | XMS REPORT ---
Author Author BRADYRIANNA Fajardo Organization [facility] Address [address] [place] [address] Care Team Providers Care Combat Systems Officer Name Role Phone BRADYRIANNA Fajardo Unavailable PROBLEMS Type Condition ICD9-CM Code [id number] Code Onset Dates Condition Status SNOMED Code Problem Cirrhosis of liver without ascites, unspecified hepatic cirrhosis type K74.60 Active 65797225 Problem Insomnia due to medical condition G47.01 Active 46912246 Problem Hallux rigidus M20.20 Active 649638412 Problem Hallux valgus (acquired), right foot M20.11 Active 671652754 Problem Dermatochalasis of right eye, unspecified eyelid H02.833 Active 388567966 Problem DM neuro manif type II E11.49 Active 52098440 Problem Hypermetropia, bilateral H52.03 Active 45386974 Problem Thrombocytopenia D69.6 Active 566154667 Problem Other hammer toe(s) (acquired), right foot M20.41 Active 203336780 Problem Other hammer toe(s) (acquired), left foot M20.42 Active 87391752 Problem Ventral hernia without obstruction or gangrene K43.9 Active 964995947 Problem Type 2 diabetes mellitus with diabetic neuropathy E11.40 Active 3783758418530 Problem COPD (chronic obstructive pulmonary disease) J44.9 Active 07339529 Problem GERD (gastroesophageal reflux disease) K21.9 Active 761685729 Problem Vitamin D deficiency E55.9 Active 58581287 Problem Hepatitis C B19.20 Active 31420227 Problem Hyperlipidemia E78.5 Active 23586996 Problem OM (onychomycosis) B35.1 Active 533323700 Problem Arcus senilis of both eyes H18.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 Active 339304118 Problem Type 2 diabetes mellitus with hyperglycemia E11.65 Active 299310972206241 Problem Renal cell carcinoma, left C64.2 Active 402290824 Problem Presbyopia OU H52.4 Active 34504234 Problem Peripheral neuropathy G62.9 Active 01726044 Problem Hepatic lesion K76.9 Active 851878469 ALLERGIES Substance Reaction Event Type Date Status Demerol Unknown Drug Allergy Jun, Active Codeine Sulfate Unknown Drug Allergy Jun, Active SOCIAL HISTORY Never Assessed PLAN OF CARE Activity Details Follow Up 3 Months Reason:CHM/DM Pending Test A1C VITAL SIGNS Height 66 in 2016-06-22 Weight 150.0 lbs 2016-06-22 Temperature 97.9 degrees Fahrenheit 2016-06-22 Heart Rate 74 bpm 2016-06-22 Respiratory Rate 20 2016-06-22 BMI 24.21 kg/m2 2016-06-22 Blood pressure systolic 122 mmHg 2016-06-22 Blood pressure diastolic 70 mmHg 2016-06-22 MEDICATIONS Medication Instructions Dosage Frequency Start Date End Date Duration Status GlipiZIDE 5 mg Orally Once a day 1 tablet by Oral route 24h Dec, 90 days Active Blood Glucose Test one touch ultra mini test blood sugar 8h 11 Jun, 2015 Active Lisinopril 5 mg Orally Once a day 1 tablet by Oral route 1 time per day 24h Dec, 90 days Active Albuterol Sulfate 90 mcg/actuation Inhalation every 4 hrs 2 puffs by Inhalation route every 4-6 hours as needed PRN cough or wheezing or SOB 4h Dec, 12 months Active Advair Diskus 250-50 MCG/DOSE Inhalation Twice a day 1 puff 12h August, 12 months Active Metformin HCl 1000 MG Orally Twice a day 1 tablet with meals 12h Jun, 90 days Active Simvastatin 40 mg Orally Once a day 1 tablet by Oral route 24h Dec, 90 days Active Protonix 40 mg Orally Once a day 1 tablet 24h 90 days Active Aspirin 81 MG Orally Once a day 1 tablet by Oral route 1 time per day 24h Apr, Active Lancets 33 gauge 1 time per day ONE TOUCH DELICA LANCETS. DX: 250.02 6h Mar, Active RESULTS Name Result Date Reference Range A1C (IN HOUSE) 2016-06-22 A1C IN HOUSE 6.1 4.3 - 5.6 % Previous A1c 6.2 Lot [id number] Exp date 03/2018 MICROALBUMIN, URINE (IN HOUSE) 2016-06-22 MICROALBUMIN normal Lot # [id number] Exp date 05/2017 Clarity clear Color yellow ALB 30 CRE 200 A:C (IN HOUSE) <30 Control + Control Lot # Exp date PROCEDURES Procedure Date Ordered Result Body Site GLYCATED HEMOGLOBIN TEST Jun 22, 2016 MICROALBUMIN, SEMIQUANT Jun 22, 2016 [facility] VISIT ESTABLISHED PATIENT Jun 22, 2016 IMMUNIZATIONS No Known Immunizations MEDICAL (GENERAL) [...]
--- OUTSIDE RECORDS SUMMARY | 2018-02-09 14:36 | XMS REPORT ---
Author Author TERESA JOHNSON [facility] e[employer] Address Unknown Phone Unavailable Care Team Providers Care Sql Tech Name Role Phone TERESA JOHNSON CP Unavailable Allergies No Known Allergies Problems Problem Type Condition Code Onset Dates Condition Status Problem Black stool K92.1 Active Problem Type 2 diabetes mellitus with hyperglycemia E11.65 Active Problem COPD (chronic obstructive pulmonary disease) J44.9 Active Problem Hyperlipidemia E78.5 Active Problem Erectile dysfunction N52.9 Active Problem Type 2 diabetes mellitus with diabetic neuropathy E11.40 Active Problem Chronic hepatitis C B18.2 Active Problem Depression F32.9 Active Medications No Known Medications Results No Known Results Summary Purpose eClinicalWorks Submission
--- OUTSIDE RECORDS SUMMARY | 2018-02-09 14:36 | XMS REPORT ---
Author Author ELENA CHAPMAN Organization [employer] Address Unknown Phone Unavailable Care Team Providers Care Aviation Maintenance Technician Name Role Phone ELENA CHAPMAN CP Unavailable Allergies No Known Allergies Problems [...] Active Problem Actinic keratosis 702.0 Active Assessment Depressive disorder, not elsewhere classified 311 Active Problem Unspecified disorder of skin and subcutaneous tissue 709.9 Active Problem Chronic hepatitis C without mention of hepatic coma 070.54 Active Problem Rash and other nonspecific skin eruption 782.1 Active Problem Chronic airway obstruction, not elsewhere classified 496 Active Problem Unspecified seborrheic dermatitis 690.10 Active Problem Other abnormal blood chemistry 790.6 Active Medications No Known Medications Procedures Procedure Coding System Code Date Psychotherapy, patient &/family, 30 minutes, established patient CPT-4 49606 Dec 30, 2014 [facility] VISIT MENTAL HEALTH ESTAB PT CPT-4 G0470 Dec 30, 2014 Results No Known Results Summary Purpose eClinicalWorks Submission
--- OUTSIDE RECORDS SUMMARY | 2018-02-09 14:36 | XMS REPORT ---
Author Author BRADYRIANNA Fajardo Organization [facility] Address [address] [place] [address] Care Team Providers Care Carpet Technician Name Role Phone BRADYRIANNA Fajardo Unavailable PROBLEMS Type Condition ICD9-CM Code [id number] Code Onset Dates Condition Status SNOMED Code Problem Cirrhosis of liver without ascites, unspecified hepatic cirrhosis type K74.60 Active 55742190 Problem Insomnia due to medical condition G47.01 Active 60633250 Problem Hallux rigidus M20.20 Active 584792882 Problem Hallux valgus (acquired), right foot M20.11 Active 817839761 Problem Dermatochalasis of right eye, unspecified eyelid H02.833 Active 648856319 Problem DM neuro manif type II E11.49 Active 61016458 Problem Hypermetropia, bilateral H52.03 Active 55843405 Problem Thrombocytopenia D69.6 Active 957887969 Problem Other hammer toe(s) (acquired), right foot M20.41 Active 249416570 Problem Other hammer toe(s) (acquired), left foot M20.42 Active 73929483 Problem Ventral hernia without obstruction or gangrene K43.9 Active 843235411 Problem Type 2 diabetes mellitus with diabetic neuropathy E11.40 Active 6951052970407 Problem COPD (chronic obstructive pulmonary disease) J44.9 Active 69749517 Problem GERD (gastroesophageal reflux disease) K21.9 Active 814484894 Problem Vitamin D deficiency E55.9 Active 02488015 Problem Hepatitis C B19.20 Active 44649117 Problem Hyperlipidemia E78.5 Active 14232028 Problem OM (onychomycosis) B35.1 Active 840235883 Problem 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
--- OUTSIDE RECORDS SUMMARY | 2018-02-09 14:37 | XMS REPORT | Continuity of Care Document ---
Author Author [facility] Address Unknown Phone Unavailable Allergies Active Description Code Type Severity Reaction Onset Reported/Identified Relationship to Patient Clinical Status Yes codeine [id number] Drug Allergy Mild NAUSEA 04/22/2015 Yes meperidine [id number] Drug Allergy Moderate HIVES 04/22/2015 Medications There is no data. Problems Date Dx Coded Attending Type Code Diagnosis Diagnosed By 03/05/2013 SALAZAR DO, PASTORA K 783.21 WEIGHT LOSS 03/05/2013 SALAZAR DO, PASTORA K 783.5 POLYDIPSIA 03/05/2013 SALAZAR DO, PASTORA K 788.42 POLYURIA 03/05/2013 SALAZAR DO, PASTORA K 783.21 WEIGHT LOSS 03/05/2013 SALAZAR DO, PASTORA K 783.5 POLYDIPSIA 03/05/2013 SALAZAR DO, PASTORA K 788.42 POLYURIA 03/05/2013 LESTER WESTBROOK APRN 783.21 WEIGHT LOSS 03/05/2013 LESTER WESTBROOK APRN 783.5 POLYDIPSIA 03/05/2013 LESTER WESTBROOK APRN 788.42 POLYURIA 03/05/2013 SALAZAR DO, PASTORA K 783.21 WEIGHT LOSS 03/05/2013 SALAZAR DO, PASTORA K 783.5 POLYDIPSIA 03/05/2013 SALAZAR DO, PASTORA K 788.42 POLYURIA 03/05/2013 SALAZAR DO, PASTORA K 783.21 WEIGHT LOSS 03/05/2013 SALAZAR DO, PASTORA K 783.5 POLYDIPSIA 03/05/2013 SALAZAR DO, PASTORA K 788.42 POLYURIA 03/05/2013 SALAZAR DO, PASTORA K 783.21 WEIGHT LOSS 03/05/2013 SALAZAR DO, PASTORA K 783.5 POLYDIPSIA 03/05/2013 SALAZAR DO, PASTORA K 788.42 POLYURIA 03/05/2013 SALAZAR DO, PASTORA K 783.21 WEIGHT LOSS 03/05/2013 SALAZAR DO, PASTORA K 783.5 POLYDIPSIA 03/05/2013 SALAZAR DO, PASTORA K 788.42 POLYURIA 03/05/2013 SALAZAR DO, PASTORA K 783.21 WEIGHT LOSS 03/05/2013 SALAZAR DO, PASTORA K 783.5 POLYDIPSIA 03/05/2013 SALAZAR DO, PASTORA K 788.42 POLYURIA 03/05/2013 SALAZAR DO, PASTORA K 783.21 WEIGHT LOSS 03/05/2013 SALAZAR DO, PASTORA K 783.5 POLYDIPSIA 03/05/2013 SALAZAR DO, PASTORA K 788.42 POLYURIA 03/05/2013 SALAZAR DO, PASTORA K 783.21 WEIGHT LOSS 03/05/2013 SALAZAR DO, PASTORA K 783.5 POLYDIPSIA 03/05/2013 SALAZAR DO, PASTORA K 788.42 POLYURIA 03/23/2013 SALAZAR DO, PASTORA K 250.02 DIABETES II UNCONTROLLED (UNCOMPLICATED) 03/23/2013 SALAZAR DO, PASTORA K 305.1 NONDEPENDENT TOBACCO USE DISORDER 03/23/2013 SALAZAR DO, PASTORA K 790.6 OTHER ABNORMAL BLOOD CHEMISTRY 03/23/2013 SALAZAR DO, PASTORA K V65.42 COUNSELING - SMOKING CESSATION 03/23/2013 LESTER WESTBROOK APRN 250.02 DIABETES II UNCONTROLLED (UNCOMPLICATED) 03/23/2013 LESTER WESTBROOK APRN 305.1 NONDEPENDENT TOBACCO USE DISORDER 03/23/2013 LESTER WESTBROOK APRN 790.6 OTHER ABNORMAL BLOOD CHEMISTRY 03/23/2013 LESTER WESTBROOK APRN V65.42 COUNSELING - SMOKING CESSATION 03/23/2013 SALAZAR DO, PASTORA K 250.02 DIABETES II UNCONTROLLED (UNCOMPLICATED) 03/23/2013 SALAZAR DO, PASTORA K 305.1 NONDEPENDENT TOBACCO USE DISORDER 03/23/2013 SALAZAR DO, PASTORA K 790.6 OTHER ABNORMAL BLOOD CHEMISTRY 03/23/2013 SALAZAR DO, PASTORA K V65.42 COUNSELING - SMOKING CESSATION 03/23/2013 SALAZAR DO, PASTORA K 250.02 DIABETES II UNCONTROLLED (UNCOMPLICATED) 03/23/2013 SALAZAR DO, PASTORA K 305.1 NONDEPENDENT TOBACCO USE DISORDER 03/23/2013 SALAZAR DO, PASTORA K 790.6 OTHER ABNORMAL BLOOD CHEMISTRY 03/23/2013 SALAZAR DO, PASTORA K V65.42 COUNSELING - SMOKING CESSATION 03/23/2013 SALAZAR DO, PASTORA K 250.02 DIABETES II UNCONTROLLED (UNCOMPLICATED) 03/23/2013 SALAZAR DO, PASTORA K 305.1 NONDEPENDENT TOBACCO USE DISORDER 03/23/2013 SALAZAR DO, PASTORA K 790.6 OTHER ABNORMAL BLOOD CHEMISTRY 03/23/2013 SALAZAR DO, PASTORA K V65.42 COUNSELING - SMOKING CESSATION 03/23/2013 SALAZAR DO, PASTORA K 250.02 DIABETES II UNCONTROLLED (UNCOMPLICATED) 03/23/2013 SALAZAR DO, PASTORA K 305.1 NONDEPENDENT TOBACCO USE DISORDER 03/23/2013 SALAZAR DO, PASTORA K 790.6 OTHER ABNORMAL BLOOD CHEMISTRY 03/23/2013 SALAZAR DO, PASTORA K V65.42 COUNSELING - SMOKING CESSATION 03/23/2013 SALAZAR DO, PASTORA K 250.02 DIABETES II UNCONTROLLED (UNCOMPLICATED) 03/23/2013 SALAZAR DO, PASTORA K 305.1 NONDEPENDENT TOBACCO USE DISORDER 03/23/2013 SALAZAR DO, PASTORA K 790.6 OTHER ABNORMAL BLOOD CHEMISTRY 03/23/2013 SALAZAR DO, PASTORA K V65.42 COUNSELING - SMOKING CESSATION 03/23/2013 SALAZAR DO, PASTORA K 250.02 DIABETES II UNCONTROLLED (UNCOMPLICATED) 03/23/2013 SALAZAR DO, PASTORA K 305.1 NONDEPENDENT TOBACCO USE DISORDER 03/23/2013 SALAZAR DO, PASTORA K 790.6 OTHER ABNORMAL BLOOD CHEMISTRY 03/23/2013 SALAZAR DO, PASTORA K V65.42 COUNSELING - SMOKING CESSATION 03/23/2013 SALAZAR DO, PASTORA K 250.02 DIABETES II UNCONTROLLED (UNCOMPLICATED) 03/23/2013 SALAZAR DO, PASTORA K 305.1 NONDEPENDENT TOBACCO USE DISORDER 03/23/2013 SALAZAR DO, PASTORA K 790.6 OTHER ABNORMAL BLOOD CHEMISTRY 03/23/2013 SALAZAR DO, PASTORA K V65.42 COUNSELING - SMOKING CESSATION 04/06/2013 SALAZAR DO, PASTORA K V15.82 Nicotine abuse 04/06/2013 SALAZAR DO, PASTORA K V15.82 Nicotine abuse 04/06/2013 SALAZAR DO, PASTORA K V15.82 Nicotine abuse 04/06/2013 SALAZAR DO, PASTORA K V15.82 Nicotine abuse 04/06/2013 SALAZAR DO, PASTORA K V15.82 Nicotine abuse 04/06/2013 SALAZAR DO, PASTORA K V15.82 Nicotine abuse 04/06/2013 SALAZAR DO, PASTORA K V15.82 Nicotine abuse 04/24/2013 SALAZAR DO, PASTORA K 070.54 CHRONIC HEPATITIS C WITHOUT HEPATIC COMA 04/24/2013 SALAZAR DO, PASTORA K 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 04/24/2013 SALAZAR DO, PASTORA K 496 COPD 04/24/2013 SALAZAR DO, PASTORA K 690.10 SEBORRHEIC DERMATITIS UNSPECIFIED 04/24/2013 SALAZAR DO, PASTORA K 709.9 UNSPECIFIED DISORDER OF SKIN AND SUBCUTANEOUS TISSUE 04/24/2013 SALAZAR DO, PASTORA K 070.54 CHRONIC HEPATITIS C WITHOUT HEPATIC COMA 04/24/2013 SALAZAR DO, PASTORA K 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 04/24/2013 SALAZAR DO, PASTORA K 496 COPD 04/24/2013 SALAZAR DO, PASTORA K 690.10 SEBORRHEIC DERMATITIS UNSPECIFIED 04/24/2013 SALAZAR DO, PASTORA K 709.9 UNSPECIFIED DISORDER OF SKIN AND SUBCUTANEOUS TISSUE 04/24/2013 SALAZAR DO, PASTORA K 070.54 CHRONIC HEPATITIS C WITHOUT HEPATIC COMA 04/24/2013 SALAZAR DO, PASTORA K 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 04/24/2013 SALAZAR DO, PASTORA K 496 COPD 04/24/2013 SALAZAR DO, PASTORA K 690.10 SEBORRHEIC DERMATITIS UNSPECIFIED 04/24/2013 SALAZAR DO, PASTORA K 709.9 UNSPECIFIED DISORDER OF SKIN AND SUBCUTANEOUS TISSUE 04/24/2013 SALAZAR DO, PASTORA K 070.54 CHRONIC HEPATITIS C WITHOUT HEPATIC COMA 04/24/2013 SALAZAR DO, PASTORA K 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 04/24/2013 SALAZAR DO, PASTORA K 496 COPD 04/24/2013 SALAZAR DO, PASTORA K 690.10 SEBORRHEIC DERMATITIS UNSPECIFIED 04/24/2013 SALAZAR DO, PASTORA K 709.9 UNSPECIFIED DISORDER OF SKIN AND SUBCUTANEOUS TISSUE 04/24/2013 SALAZAR DO, PASTORA K 070.54 CHRONIC HEPATITIS C WITHOUT HEPATIC COMA 04/24/2013 SALAZAR DO, PASTORA K 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 04/24/2013 SALAZAR DO, PASTORA K 496 COPD 04/24/2013 SALAZAR DO, PASTORA K 690.10 SEBORRHEIC DERMATITIS UNSPECIFIED 04/24/2013 SALAZAR DO, PASTORA K 709.9 UNSPECIFIED DISORDER OF SKIN AND SUBCUTANEOUS TISSUE 04/24/2013 SALAZAR DO PASTORA K 070.54 CHRONIC HEPATITIS C WITHOUT HEPATIC COMA 04/24/2013 MARTIN GALLEGOS PASTORA K 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 04/24/2013 MARTIN GALLEGOS PASTORA K 496 COPD 04/24/2013 SALAZAR DO PASTORA K 690.10 SEBORRHEIC DERMATITIS UNSPECIFIED 04/24/2013 SALAZAR DO, PASTORA K 709.9 UNSPECIFIED DISORDER OF SKIN AND SUBCUTANEOUS TISSUE 07/23/2013 SALAZAR DO, PASTORA K 782.1 RASH 07/23/2013 SALAZAR DO, PASTORA K 782.1 RASH 07/23/2013 SALAZAR DO, PASTORA K 782.1 RASH 07/23/2013 SALAZAR DO, PASTORA K 782.1 RASH 07/23/2013 SALAZAR DO, PASTORA K 782.1 RASH 01/28/2014 SALAZAR DO, PASTORA K 250.60 DIABETES WITH NEUROLOGICAL MANIFESTATIONS TYPE II OR UNSPECIFIED TYPE NOT STATED UNCONTROLLED 01/28/2014 SALAZAR DO, PASTORA K 702.0 ACTINIC KERATOSIS 01/28/2014 SALAZAR DO, PASTORA K 250.60 DIABETES WITH NEUROLOGICAL MANIFESTATIONS TYPE II OR UNSPECIFIED TYPE NOT STATED UNCONTROLLED 01/28/2014 SALAZAR DO, PASTORA K 702.0 ACTINIC KERATOSIS 11/26/2014 TERESA JOHNSON JAVA SECURITY ENGINEER Ot 789.09 12/26/2014 TERESA JOHNSON JAVA SECURITY ENGINEER Ot 789.09 04/22/2015 SAMIR COCHRAN DO Ot E11.9 TYPE 2 DIABETES MELLITUS WITHOUT COMPLIC 04/22/2015 SAMIR COCHRAN DO Ot I85.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 04/22/2015 SAMIR COCHRAN DO Ot K29.70 GASTRITIS, UNSPECIFIED, WITHOUT BLEEDING 04/22/2015 SAMIR COCHRAN DO Ot R19.5 OTHER FECAL ABNORMALITIES 10/27/2015 RIANNA BRADY JAVA SECURITY ENGINEER Ot M47.26 OTHER SPONDYLOSIS WITH RADICULOPATHY, MOIRA 10/27/2015 RIANNA BRADY JAVA SECURITY ENGINEER Ot M47.26 OTHER SPONDYLOSIS WITH RADICULOPATHY, MOIRA 10/28/2015 TERESA JOHNSON JAVA SECURITY ENGINEER Ot 789.09 ABDOMINAL PAIN, OTHER SPECIFIED SITE 10/28/2015 SAMIR COCHRAN DO Ot Z01.818 ENCOUNTER FOR OTHER PREPROCEDURAL EXAMIN 10/28/2015 RIANNA BRADY R JAVA SECURITY ENGINEER Ot M47.26 OTHER SPONDYLOSIS WITH RADICULOPATHY, MOIRA 10/29/2015 RIANNA BRADY JAVA SECURITY ENGINEER Ot I86.8 VARICOSE VEINS OF OTHER SPECIFIED SITES 10/29/2015 RIANNA BRAYD JAVA SECURITY ENGINEER Ot K74.60 UNSPECIFIED CIRRHOSIS OF LIVER 10/29/2015 RINANA BRADY R JAVA SECURITY ENGINEER Ot N28.89 OTHER SPECIFIED DISORDERS OF KIDNEY AND 10/29/2015 RIANNA BRADY R JAVA SECURITY ENGINEER Ot R16.0 HEPATOMEGALY, NOT ELSEWHERE CLASSIFIED 10/29/2015 RIANNA BRADY R JAVA SECURITY ENGINEER Ot R16.1 SPLENOMEGALY, NOT ELSEWHERE CLASSIFIED 10/31/2015 RIANNA BRADY JAVA SECURITY ENGINEER Ot K74.60 UNSPECIFIED CIRRHOSIS OF LIVER 10/31/2015 RIANNA BRADY JAVA SECURITY ENGINEER Ot N28.89 OTHER SPECIFIED DISORDERS OF KIDNEY AND 11/05/2015 RIANNA BRADY R JAVA SECURITY ENGINEER Ot K74.60 UNSPECIFIED CIRRHOSIS OF LIVER 11/05/2015 RIANNA BRADY R JAVA SECURITY ENGINEER Ot N28.89 OTHER SPECIFIED DISORDERS OF KIDNEY AND 11/13/2015 RIANNA BRADY R JAVA SECURITY ENGINEER Ot M47.26 OTHER SPONDYLOSIS WITH RADICULOPATHY, 11/20/2015 RIANNA BRADY JAVA SECURITY ENGINEER Ot I86.8 VARICOSE VEINS OF OTHER SPECIFIED SITES 11/20/2015 RIANNA BRADY JAVA SECURITY ENGINEER Ot K74.60 UNSPECIFIED CIRRHOSIS OF LIVER 11/20/2015 RIANNA BRADY R JAVA SECURITY ENGINEER Ot N28.89 OTHER SPECIFIED DISORDERS OF KIDNEY AND 11/20/2015 RIANNA BRADY JAVA SECURITY ENGINEER Ot R16.0 HEPATOMEGALY, NOT ELSEWHERE CLASSIFIED 11/20/2015 RIANNA BRADY JAVA SECURITY ENGINEER Ot R16.1 SPLENOMEGALY, NOT ELSEWHERE CLASSIFIED 11/20/2015 RIANNA BRADY R JAVA SECURITY ENGINEER Ot K74.60 UNSPECIFIED CIRRHOSIS OF LIVER 11/20/2015 RIANNA BRADY R JAVA SECURITY ENGINEER Ot N28.89 OTHER SPECIFIED DISORDERS OF KIDNEY AND 12/05/2015 RIANNA BRADY R JAVA SECURITY ENGINEER Ot M47.26 OTHER SPONDYLOSIS WITH RADICULOPATHY, MOIRA 12/05/2015 RIANNA BRADY R JAVA SECURITY ENGINEER Ot I86.8 VARICOSE VEINS OF OTHER SPECIFIED SITES 12/05/2015 VANE BRADYELE R JAVA SECURITY ENGINEER Ot K74.60 UNSPECIFIED CIRRHOSIS OF LIVER 12/05/2015 BRADY, RIANNA R JAVA SECURITY ENGINEER Ot N28.89 OTHER SPECIFIED DISORDERS OF KIDNEY AND 12/05/2015 CAITLYN RIANNA R JAVA SECURITY ENGINEER Ot R16.0 HEPATOMEGALY, NOT ELSEWHERE CLASSIFIED 12/05/2015 BRADYVANE FajardoELE R JAVA SECURITY ENGINEER Ot R16.1 SPLENOMEGALY, NOT ELSEWHERE CLASSIFIED 12/05/2015 BRADY RIANNA R JAVA SECURITY ENGINEER Ot K74.60 UNSPECIFIED CIRRHOSIS OF LIVER 12/05/2015 VANE BRADYELE R JAVA SECURITY ENGINEER Ot N28.89 OTHER SPECIFIED DISORDERS OF KIDNEY AND 09/17/2016 TERESA JOHNSON JAVA SECURITY ENGINEER Ot 789.09 ABDOMINAL PAIN, OTHER SPECIFIED SITE 09/17/2016 DOUGHERTY DO, SAMIR D Ot Z01.818 ENCOUNTER FOR OTHER PREPROCEDURAL EXAMIN 09/17/2016 RIANNA BRADY R JAVA SECURITY ENGINEER Ot M47.26 OTHER SPONDYLOSIS WITH RADICULOPATHY, MOIRA 09/17/2016 CAITLYN RIANNA R JAVA SECURITY ENGINEER Ot I86.8 VARICOSE VEINS OF OTHER SPECIFIED SITES 09/17/2016 RIANNA BRADY R JAVA SECURITY ENGINEER Ot K74.60 UNSPECIFIED CIRRHOSIS OF LIVER 09/17/2016 CAITLYN RIANNA R JAVA SECURITY ENGINEER Ot N28.89 OTHER SPECIFIED DISORDERS OF KIDNEY AND 09/17/2016 BRADY, RIANNA R JAVA SECURITY ENGINEER Ot R16.0 HEPATOMEGALY, NOT ELSEWHERE CLASSIFIED 09/17/2016 VANE BRADYELE R JAVA SECURITY ENGINEER Ot R16.1 SPLENOMEGALY, NOT ELSEWHERE CLASSIFIED 09/17/2016 BRADY, RIANNA R JAVA SECURITY ENGINEER Ot K74.60 UNSPECIFIED CIRRHOSIS OF LIVER 09/17/2016 VANE BRADYELE R JAVA SECURITY ENGINEER Ot N28.89 OTHER SPECIFIED DISORDERS OF KIDNEY AND 09/20/2016 TERESA JOHNSON JAVA SECURITY ENGINEER Ot 789.09 ABDOMINAL PAIN, OTHER SPECIFIED SITE 09/20/2016 COCHRAN DO, SAMIR D Ot Z01.818 ENCOUNTER FOR OTHER PREPROCEDURAL EXAMIN 09/20/2016 RIANNA BRADY R JAVA SECURITY ENGINEER Ot M47.26 OTHER SPONDYLOSIS WITH RADICULOPATHY, MOIRA 09/20/2016 RIANNA BRADY JAVA SECURITY ENGINEER Ot I86.8 VARICOSE VEINS OF OTHER SPECIFIED SITES 09/20/2016 RIANNA BRADY JAVA SECURITY ENGINEER Ot K74.60 UNSPECIFIED CIRRHOSIS OF LIVER 09/20/2016 RIANNA BRADY JAVA SECURITY ENGINEER Ot N28.89 OTHER SPECIFIED DISORDERS OF KIDNEY AND 09/20/2016 RIANNA BRADY JAVA SECURITY ENGINEER Ot R16.0 HEPATOMEGALY, NOT ELSEWHERE CLASSIFIED 09/20/2016 RIANNA BRADY JAVA SECURITY ENGINEER Ot R16.1 SPLENOMEGALY, NOT ELSEWHERE CLASSIFIED 09/20/2016 RIANNA BRADY JAVA SECURITY ENGINEER Ot K74.60 UNSPECIFIED CIRRHOSIS OF LIVER 09/20/2016 RIANNA BRADY JAVA SECURITY ENGINEER Ot N28.89 OTHER SPECIFIED DISORDERS OF KIDNEY AND 10/13/2016 CANDACE DOWNEY FLIGHT SECURITY SPECIALIST-C Ot B17.10 ACUTE HEPATITIS C WITHOUT HEPATIC COMA 10/13/2016 CANDACE DOWNEY FLIGHT SECURITY SPECIALIST-C Ot E11.22 TYPE 2 DIABETES MELLITUS W DIABETIC TRANSLATOR INTERPRETER 10/13/2016 CANDACE DOWNEY FLIGHT SECURITY SPECIALIST-C Ot E78.5 HYPERLIPIDEMIA, UNSPECIFIED 10/13/2016 CANDACE DOWNEY FLIGHT SECURITY SPECIALIST-C Ot J44.9 CHRONIC OBSTRUCTIVE PULMONARY DISEASE, U 10/13/2016 CANDACE DOWNEY FLIGHT SECURITY SPECIALIST-C Ot K21.9 GASTRO-ESOPHAGEAL REFLUX DISEASE WITHOUT 10/13/2016 CANDACE DOWNEY FLIGHT SECURITY SPECIALIST-C Ot N18.3 CHRONIC KIDNEY DISEASE, STAGE 3 (MODERAT 07/22/2017 TERESA JOHNSON JAVA SECURITY ENGINEER Ot 789.09 ABDOMINAL PAIN, OTHER SPECIFIED SITE 07/22/2017 SAMIR COCHRAN DO Ot Z01.818 ENCOUNTER FOR OTHER PREPROCEDURAL EXAMIN 07/22/2017 RIANNA BRADY JAVA SECURITY ENGINEER Ot M47.26 OTHER SPONDYLOSIS WITH RADICULOPATHY, MOIRA 07/22/2017 RIANNA BRADY JAVA SECURITY ENGINEER Ot I86.8 VARICOSE VEINS OF OTHER SPECIFIED SITES 07/22/2017 RIANNA BRADY JAVA SECURITY ENGINEER Ot K74.60 UNSPECIFIED CIRRHOSIS OF LIVER 07/22/2017 RIANNA BRADY JAVA SECURITY ENGINEER Ot N28.89 OTHER SPECIFIED DISORDERS OF KIDNEY AND 07/22/2017 RIANNA BRADY JAVA SECURITY ENGINEER Ot R16.0 HEPATOMEGALY, NOT ELSEWHERE CLASSIFIED 07/22/2017 RIANNA BRADY JAVA SECURITY ENGINEER Ot R16.1 SPLENOMEGALY, NOT ELSEWHERE CLASSIFIED 07/22/2017 RIANNA BRADY JAVA SECURITY ENGINEER Ot K74.60 UNSPECIFIED CIRRHOSIS OF LIVER 07/22/2017 RIANNA BRADY JAVA SECURITY ENGINEER Ot N28.89 OTHER SPECIFIED DISORDERS OF KIDNEY AND 07/22/2017 CANDACE DOWNEY FLIGHT SECURITY SPECIALIST-C Ot B17.10 ACUTE HEPATITIS C WITHOUT HEPATIC COMA 07/22/2017 CANDACE DOWNEY FLIGHT SECURITY SPECIALIST-C Ot E11.22 TYPE 2 DIABETES MELLITUS W DIABETIC TRANSLATOR INTERPRETER 07/22/2017 CANDACE DOWNEY FLIGHT SECURITY SPECIALIST-C Ot E78.5 HYPERLIPIDEMIA, UNSPECIFIED 07/22/2017 CANDACE DOWNEY FLIGHT SECURITY SPECIALIST-C Ot J44.9 CHRONIC OBSTRUCTIVE PULMONARY DISEASE, U 07/22/2017 CANDACE DOWNEY FLIGHT SECURITY SPECIALIST-C Ot K21.9 GASTRO-ESOPHAGEAL REFLUX DISEASE WITHOUT 07/22/2017 CANDACE DWONEY FLIGHT SECURITY SPECIALIST-C Ot N18.3 CHRONIC KIDNEY DISEASE, STAGE 3 (MODERAT 07/24/2017 RIANNA BRADY JAVA SECURITY ENGINEER Ot M46.86 OTHER SPECIFIED INFLAMMATORY SPONDYLOPAT 07/24/2017 RIANNA BRADY JAVA SECURITY ENGINEER Ot M47.26 OTHER SPONDYLOSIS WITH RADICULOPATHY, MOIRA 07/24/2017 RIANNA BRADY JAVA SECURITY ENGINEER Ot M48.07 SPINAL STENOSIS, LUMBOSACRAL REGION 07/24/2017 RIANNA BRADY JAVA SECURITY ENGINEER Ot M51.17 INTVRT DISC DISORDERS W RADICULOPATHY, L 08/02/2017 RIANNA BRADY JAVA SECURITY ENGINEER Ot M46.86 OTHER SPECIFIED INFLAMMATORY SPONDYLOPAT 08/02/2017 RIANNA BRADY JAVA SECURITY ENGINEER Ot M47.26 OTHER SPONDYLOSIS WITH RADICULOPATHY, MOIRA 08/02/2017 RIANNA BRADY JAVA SECURITY ENGINEER Ot M48.07 SPINAL STENOSIS, LUMBOSACRAL REGION 08/02/2017 RIANNA BRADY JAVA SECURITY ENGINEER Ot M51.17 INTVRT DISC DISORDERS W RADICULOPATHY, L 08/03/2017 RIANNA BRADY JAVA SECURITY ENGINEER Ot M46.86 OTHER SPECIFIED INFLAMMATORY SPONDYLOPAT 08/03/2017 RIANNA BRADY JAVA SECURITY ENGINEER Ot M47.26 OTHER SPONDYLOSIS WITH RADICULOPATHY, MOIRA 08/03/2017 RIANNA BRADY JAVA SECURITY ENGINEER Ot M48.07 SPINAL STENOSIS, LUMBOSACRAL REGION 08/03/2017 BRADYRIANNA R JAVA SECURITY ENGINEER Ot M51.17 INTVRT DISC DISORDERS W RADICULOPATHY, L 09/30/2017 RIANNA BRADY R JAVA SECURITY ENGINEER Ot M46.86 OTHER SPECIFIED INFLAMMATORY SPONDYLOPAT 09/30/2017 RIANNA BRADY R JAVA SECURITY ENGINEER Ot M47.26 OTHER SPONDYLOSIS WITH RADICULOPATHY, MOIRA 09/30/2017 RIANNA BRADY R JAVA SECURITY ENGINEER Ot M48.07 SPINAL STENOSIS, LUMBOSACRAL REGION 09/30/2017 RIANNA BRADY R JAVA SECURITY ENGINEER Ot M51.17 INTVRT DISC DISORDERS W RADICULOPATHY, L 10/26/2017 RIANNA BRADY R JAVA SECURITY ENGINEER Ot M46.86 OTHER SPECIFIED INFLAMMATORY SPONDYLOPAT 10/26/2017 RIANNA BRADY R JAVA SECURITY ENGINEER Ot M47.26 OTHER SPONDYLOSIS WITH RADICULOPATHY, MOIRA 10/26/2017 RIANNA BRADY R JAVA SECURITY ENGINEER Ot M48.07 SPINAL STENOSIS, LUMBOSACRAL REGION 10/26/2017 RIANNA BRADY R JAVA SECURITY ENGINEER Ot M51.17 INTVRT DISC DISORDERS W RADICULOPATHY, L Procedures Code Description [place] [address] ROUTINE VENIPUNCTURE 03/06/2013 50501 A1C (IN-HOUSE) 03/06/2013 13060 LIPID PANEL 03/06/2013 [id number] GFR CALC (RESULT ONLY) 03/06/2013 42566 CMP 03/06/2013 73413 TSH 03/06/2013 26462 CBC 03/06/2013 18396 ROUTINE VENIPUNCTURE 03/23/2013 84804 MICRO ALBUMIN-IN HOUSE 03/23/2013 54844 A1C (IN-HOUSE) 03/23/2013 69441 CMP 03/23/2013 54301 IRON SERUM 03/23/2013 37116 IRON BNDNG CAP 03/23/2013 [id number] GFR CALC (RESULT ONLY) 03/23/2013 58546 FERRITIN 03/23/2013 46110 HEPATITIS PROFILE 03/23/2013 [id number] HCV INDEX (RESULT ONLY) 03/23/2013 IRGROUP IRON GROUP (Iron,TIBC, Ferritin) 03/25/2013 SADIA RINALDI 03/25/2013 92250 PULMONARY FUNCTION TEST (IN- HOUSE) 04/06/2013 18887 RESPIRATORY FLOW VOLUME LOOP 04/06/2013 10235 PULMONARY EDUCATION 04/06/2013 69854 A1C (IN-HOUSE) 07/23/2013 2028F FOOT EXAM PERFORMED 07/23/2013 90934 ROUTINE VENIPUNCTURE 07/23/2013 61695 EYE EXAM PERFORMED 07/23/2013 [id number] GFR CALC (RESULT ONLY) 07/23/2013 51383 CMP 07/23/2013 54833 LIPID PANEL 10/23/2013 22871 A1C (IN-HOUSE) 10/23/2013 43849 ROUTINE VENIPUNCTURE 11/05/2013 55925 CMP 11/05/2013 [id number] GFR CALC (RESULT ONLY) 11/05/2013 27107 ROUTINE VENIPUNCTURE 01/28/2014 93292 [facility] 01/28/2014 48376 A1C (IN-HOUSE) 01/28/2014 Results Test Result Range CBC+Platelet+Hem Review - 03/19/16 13:42 WBC 3.2 x10E3/uL 3.4-10.8 RBC 4.04 x10E6/uL 4.14-5.80 Hemoglobin 13.2 g/dL 12.6-17.7 Hematocrit 37.9 % 37.5-51.0 MCV 94 fL 79-97 MCH 32.7 pg 26.6-33.0 MCHC 34.8 g/dL 31.5-35.7 RDW 13.9 % 12.3-15.4 Platelets 86 x10E3/uL 150-379 NRBC 0 % 0 - 0 Neutrophils 59 % Lymphs 27 % Monocytes 8 % Eos 6 % Basos 0 % Neutrophils Absolute 1.9 X10E3/uL 1.4-7.0 Lymphs (Absolute) 0.9 X10E3/uL 0.7-3.1 Monocytes(Absolute) 0.3 X10E3/uL 0.1-0.9 Eos (Absolute Value) 0.2 X10E3/uL 0.0-0.4 Baso(Absolute) 0.0 X10E3/uL 0.0-0.2 RBC Comment Note: Normal Platelet Comment Note: Adequate Hematology Comments: - 03/19/16 13:42 Hematology Comments: Note: Comp. Metabolic Panel (14) - 03/19/16 13:42 Glucose, Serum 177 mg/dL 65-99 BUN 19 mg/dL 8-27 Creatinine, Serum 1.11 mg/dL 0.76-1.27 eGFR If NonAfricn Am 68 mL/min/1.73 >59 eGFR If Africn Am 78 mL/min/1.73 >59 BUN/Creatinine Ratio 17 10-22 Sodium, Serum 141 mmol/L 136-144 Potassium, Serum 4.4 mmol/L 3.5-5.2 Chloride, Serum 103 mmol/L 97-106 Carbon Dioxide, Total 22 mmol/L 18-29 Calcium, Serum 9.0 mg/dL 8.6-10.2 Protein, Total, Serum 7.1 g/dL 6.0-8.5 Albumin, Serum 3.6 g/dL 3.6-4.8 Globulin, Total 3.5 g/dL 1.5-4.5 A/G Ratio 1.0 1.1-2.5 Bilirubin, Total 0.5 mg/dL 0.0-1.2 Alkaline Phosphatase, S 142 IU/L 39-117 AST (SGOT) 85 IU/L 0-40 ALT (SGPT) 107 IU/L 0-44 Prothrombin Time (PT) - 03/19/16 13:42 INR 1.1 0.8-1.2 Prothrombin Time 11.2 sec 9.1-12.0 AFP, Serum, Tumor Marker - 03/19/16 13:42 AFP, Serum, Tumor Marker 89.8 ng/mL 0.0-8.3 CBC With Differential/Platelet - 07/20/16 12:24 WBC 4.7 x10E3/uL 3.4-10.8 RBC 4.19 x10E6/uL 4.14-5.80 Hemoglobin 13.5 g/dL 12.6-17.7 Hematocrit 40.5 % 37.5-51.0 MCV 97 fL 79-97 MCH 32.2 pg 26.6-33.0 MCHC 33.3 g/dL 31.5-35.7 RDW 14.7 % 12.3-15.4 Platelets 89 x10E3/uL 150-379 Neutrophils 60 % Lymphs 24 % Monocytes 6 % Eos 9 % Basos 1 % Neutrophils (Absolute) 2.9 x10E3/uL 1.4-7.0 Lymphs (Absolute) 1.1 x10E3/uL 0.7-3.1 Monocytes(Absolute) 0.3 x10E3/uL 0.1-0.9 Eos (Absolute) 0.4 x10E3/uL 0.0-0.4 Baso (Absolute) 0.0 x10E3/uL 0.0-0.2 Immature Granulocytes 0 % Immature Grans (Abs) 0.0 x10E3/uL 0.0-0.1 Hematology Comments: Note: Comp. Metabolic Panel (14) - 07/20/16 12:24 Glucose, Serum 194 mg/dL 65-99 BUN 34 mg/dL 8-27 Creatinine, Serum 1.40 mg/dL 0.76-1.27 eGFR If NonAfricn Am 51 mL/min/1.73 >59 eGFR If Africn Am 59 mL/min/1.73 >59 BUN/Creatinine Ratio 24 10-22 Sodium, Serum 138 mmol/L 134-144 Potassium, Serum 4.3 mmol/L 3.5-5.2 Chloride, Serum 102 mmol/L 96-106 Carbon Dioxide, Total 17 mmol/L 18-29 Calcium, Serum 9.4 mg/dL 8.6-10.2 Protein, Total, Serum 7.3 g/dL 6.0-8.5 Albumin, Serum 3.9 g/dL 3.6-4.8 Globulin, Total 3.4 g/dL 1.5-4.5 A/G Ratio 1.1 1.2-2.2 Bilirubin, Total 0.5 mg/dL 0.0-1.2 Alkaline Phosphatase, S 122 IU/L 39-117 AST (SGOT) 37 IU/L 0-40 ALT (SGPT) 38 IU/L 0-44 Lipid Panel - 07/20/16 12:24 Cholesterol, Total 205 mg/dL 100-199 Triglycerides 171 mg/dL 0-149 HDL Cholesterol 64 mg/dL >39 VLDL Cholesterol [place] 34 mg/dL 5-40 LDL Cholesterol Calc 107 mg/dL 0-99 HCV RT-PCR, Quant (Non-Graph) - 07/20/16 12:24 Hepatitis C Quantitation <15 IU/mL Test Information: Comment Prothrombin Time (PT) - 07/20/16 12:24 INR 1.0 0.8-1.2 Prothrombin Time 10.5 sec 9.1-12.0 Thyroid Yancey Profile - 07/20/16 12:24 TSH 4.490 uIU/mL 0.450-4.500 CBC With Differential/Platelet - 08/23/16 14:05 WBC 5.1 x10E3/uL 3.4-10.8 RBC 4.21 x10E6/uL 4.14-5.80 Hemoglobin 13.6 g/dL 12.6-17.7 Hematocrit 39.7 % 37.5-51.0 MCV 94 fL 79-97 MCH 32.3 pg 26.6-33.0 MCHC 34.3 g/dL 31.5-35.7 RDW 14.2 % 12.3-15.4 Platelets 105 x10E3/uL 150-379 Neutrophils 64 % Lymphs 22 % Monocytes 6 % Eos 7 % Basos 1 % Neutrophils (Absolute) 3.3 x10E3/uL 1.4-7.0 Lymphs (Absolute) 1.1 x10E3/uL 0.7-3.1 Monocytes(Absolute) 0.3 x10E3/uL 0.1-0.9 Eos (Absolute) 0.3 x10E3/uL 0.0-0.4 Baso (Absolute) 0.0 x10E3/uL 0.0-0.2 Immature Granulocytes 0 % Immature Grans (Abs) 0.0 x10E3/uL 0.0-0.1 Urinalysis, Complete - 08/23/16 14:05 Specific [place] 1.020 1.005-1.030 pH 6.0 5.0-7.5 Urine-Color Yellow Yellow Appearance Clear Clear WBC Esterase Negative Negative Protein Negative Negative/Trace Glucose Negative Negative Ketones Negative Negative Occult Blood Negative Negative Bilirubin Negative Negative Urobilinogen,Semi-Qn 1.0 mg/dL 0.2-1.0 Nitrite, Urine Negative Negative Microscopic Examination Comment Microscopic Examination See below: Microscopic Examination - 08/23/16 14:05 WBC None seen /hpf 0 - 5 RBC 0-2 /hpf 0 - 2 Epithelial Cells (non renal) None seen /hpf 0 - 10 Mucus Threads Present Not Estab. Bacteria None seen None seen/Few Renal Panel (10) - 08/23/16 14:05 Glucose, Serum 118 mg/dL 65-99 BUN 30 mg/dL 8-27 Creatinine, Serum 1.57 mg/dL 0.76-1.27 eGFR If NonAfricn Am 44 mL/min/1.73 >59 eGFR If Africn Am 51 mL/min/1.73 >59 BUN/Creatinine Ratio 19 10-24 Sodium, Serum 141 mmol/L 134-144 Potassium, Serum 4.6 mmol/L 3.5-5.2 Chloride, Serum 103 mmol/L 96-106 Carbon Dioxide, Total 23 mmol/L 18-29 Calcium, Serum 9.7 mg/dL 8.6-10.2 Albumin, Serum 4.0 g/dL 3.6-4.8 Phosphorus, Serum 3.4 mg/dL 2.5-4.5 Prot+CreatU (Random) - 08/23/16 14:05 Creatinine, Urine 86.4 mg/dL Not Estab. Protein,Total,Urine 15.5 mg/dL Not Estab. Protein/Creat Ratio 179 mg/g creat 0-200 CBC With Differential/Platelet - 12/29/16 11:14 WBC 4.5 x10E3/uL 3.4-10.8 RBC 4.34 x10E6/uL 4.14-5.80 Hemoglobin 13.5 g/dL 12.6-17.7 Hematocrit 39.9 % 37.5-51.0 MCV 92 fL 79-97 MCH 31.1 pg 26.6-33.0 MCHC 33.8 g/dL 31.5-35.7 RDW 14.3 % 12.3-15.4 Platelets 104 x10E3/uL 150-379 Neutrophils 61 % Lymphs 26 % Monocytes 5 % Eos 7 % Basos 1 % Neutrophils (Absolute) 2.8 x10E3/uL 1.4-7.0 Lymphs (Absolute) 1.2 x10E3/uL 0.7-3.1 Monocytes(Absolute) 0.2 x10E3/uL 0.1-0.9 Eos (Absolute) 0.3 x10E3/uL 0.0-0.4 Baso (Absolute) 0.0 x10E3/uL 0.0-0.2 Immature Granulocytes 0 % Immature Grans (Abs) 0.0 x10E3/uL 0.0-0.1 Urinalysis, Complete - 12/29/16 11:14 Specific [place] 1.018 1.005-1.030 pH 6.5 5.0-7.5 Urine-Color Yellow Yellow Appearance Clear Clear WBC Esterase Negative Negative Protein Negative Negative/Trace Glucose Negative Negative Ketones Negative Negative Occult Blood Negative Negative Bilirubin Negative Negative Urobilinogen,Semi-Qn 1.0 mg/dL 0.2-1.0 Nitrite, Urine Negative Negative Microscopic Examination Comment Microscopic Examination See below: Microscopic Examination - 12/29/16 11:14 WBC 0-5 /hpf 0 - 5 RBC 0-2 /hpf 0 - 2 Epithelial Cells (non renal) None seen /hpf 0 - 10 Bacteria Few None seen/Few Renal Panel (10) - 12/29/16 11:14 Glucose, Serum 147 mg/dL 65-99 BUN 21 mg/dL 8-27 Creatinine, Serum 1.40 mg/dL 0.76-1.27 eGFR If NonAfricn Am 51 mL/min/1.73 >59 eGFR If Africn Am 59 mL/min/1.73 >59 BUN/Creatinine Ratio 15 10-24 Sodium, Serum 140 mmol/L 134-144 Potassium, Serum 4.4 mmol/L 3.5-5.2 Chloride, Serum 102 mmol/L 96-106 Carbon Dioxide, Total 25 mmol/L 18-29 Calcium, Serum 9.2 mg/dL 8.6-10.2 Albumin, Serum 3.6 g/dL 3.6-4.8 Phosphorus, Serum 3.4 mg/dL 2.5-4.5 Lipid Panel - 12/29/16 11:14 Cholesterol, Total 164 mg/dL 100-199 Triglycerides 151 mg/dL 0-149 HDL Cholesterol 56 mg/dL >39 VLDL Cholesterol K[place] 30 mg/dL 5-40 LDL Cholesterol Calc 78 mg/dL 0-99 Prot+CreatU (Random) - 12/29/16 11:14 Creatinine, Urine 76.9 mg/dL Not Estab. Protein,Total,Urine 11.3 mg/dL Not Estab. Protein/Creat Ratio 147 mg/g creat 0-200 Hemoglobin A1c - 12/29/16 11:14 Hemoglobin A1c 6.9 % 4.8-5.6 Vitamin D, 25-Hydroxy - 12/29/16 11:14 Vitamin D, 25-Hydroxy 23.2 ng/mL 30.0-100.0 Uric Acid, Serum - 12/29/16 11:14 Uric Acid, Serum 6.7 mg/dL 3.7-8.6 PTH, Intact - 12/29/16 11:14 PTH, Intact 30 pg/mL 15-65 RENAL PROFILE - 12/29/16 11:14 Glucose, Serum 147 mg/dL 65-99 BUN 21 mg/dL 8-27 Creatinine, Serum 1.40 mg/dL 0.76-1.27 eGFR If NonAfricn Am 51 mL/min/1.73 >59 eGFR If Africn Am 59 mL/min/1.73 >59 BUN/Creatinine Ratio 15 10-24 Sodium, Serum 140 mmol/L 134-144 Potassium, Serum 4.4 mmol/L 3.5-5.2 Chloride, Serum 102 mmol/L 96-106 Carbon Dioxide, Total 25 mmol/L 18-29 Calcium, Serum 9.2 mg/dL 8.6-10.2 Albumin, Serum 3.6 g/dL 3.6-4.8 Phosphorus, Serum 3.4 mg/dL 2.5-4.5 DIFFERENTIAL, MANUAL - 03/10/17 14:42 ABSOLUTE NEUTROPHILS 3759 cells/uL 1259-9028 ABSOLUTE MONOCYTES 209 cells/uL 200-950 ABSOLUTE EOSINOPHILS 464 cells/uL 15-500 ABSOLUTE BASOPHILS 0 cells/uL 0-200 NEUTROPHILS 73.7 % NRG LYMPHOCYTES 13.1 % NRG MONOCYTES 4.1 % NRG EOSINOPHILS 9.1 % NRG BASOPHILS 0 % NRG ABSOLUTE LYMPHOCYTES 668 cells/uL 850-3900 CBC MORPHOLOGY NORMAL A1C - 04/19/17 12:52 HEMOGLOBIN A1c 7.4 % of total Hgb <5.7 VITAMIN D, 25-H - 05/05/17 12:21 VITAMIN D,25-OH,TOTAL,IA 31 ng/mL 30-100 A1C - 05/05/17 12:21 HEMOGLOBIN A1c 7.5 % of total Hgb <5.7 PTH (INTACT) - 09/01/17 13:45 CALCIUM 9.6 mg/dL 8.6-10.3 PARATHYROID HORMONE, INTACT 23 pg/mL 14-64 DIFFERENTIAL, MANUAL - 09/01/17 13:45 ABSOLUTE NEUTROPHILS 5122 cells/uL 3400-1508 ABSOLUTE MONOCYTES 125 cells/uL 200-950 ABSOLUTE EOSINOPHILS 0 cells/uL 15-500 ABSOLUTE BASOPHILS 59 cells/uL 0-200 NEUTROPHILS 77.6 % NRG LYMPHOCYTES 18.7 % NRG MONOCYTES 1.9 % NRG EOSINOPHILS 0 % NRG BASOPHILS 0.9 % NRG ABSOLUTE BAND NEUTROPHILS 59 cells/uL 0-750 ABSOLUTE LYMPHOCYTES 1234 cells/uL 850-3900 BAND NEUTROPHILS 0.9 % NRG PLATELET ESTIMATION DECREASED ADEQUATE NOTE NRG PTH (INTACT) - 01/05/18 10:23 CALCIUM 9.6 mg/dL 8.6-10.3 PARATHYROID HORMONE, INTACT 24 pg/mL 14-64 VITAMIN D, 25-H - 01/05/18 10:23 VITAMIN D,25-OH,TOTAL,IA 43 ng/mL 30-100 Encounters ACCT No. Visit Date/Time Discharge Status Pt. Type Provider Facility Loc./Unit Complaint [id number] 01/28/2014 10:48:00 01/28/2014 23:59:59 CLS Outpatient PASTORA SALAZAR DO [id number] 01/28/2014 10:48:00 01/28/2014 23:59:59 CLS Outpatient PASTORA SALAZAR DO [id number] 10/23/2013 09:24:00 10/23/2013 23:59:59 CLS Outpatient PASTORA SALAZAR DO [id number] 10/23/2013 09:24:00 10/23/2013 23:59:59 CLS Outpatient PASTORA SALAZAR DO [id number] 07/23/2013 09:43:00 07/23/2013 23:59:59 CLS Outpatient PASTORA SALAZAR DO [id number] 04/24/2013 09:19:00 04/24/2013 23:59:59 CLS Outpatient PASTORA SALAZAR DO [id number] 04/06/2013 14:53:00 04/06/2013 23:59:59 CLS Outpatient PASTORA SALAZAR DO [id number] 03/23/2013 15:01:00 03/23/2013 23:59:59 CLS Outpatient PASTORA SALAZAR DO [id number] 03/06/2013 07:59:00 03/06/2013 23:59:59 CLS Outpatient PASTORA SALAZAR DO [id number] 03/05/2013 16:37:00 03/05/2013 23:59:59 CLS Outpatient LESTER WESTBROOK APRN [id number] 07/22/2016 16:07:00 Document Registration [id number] 12/30/2016 16:08:00 Document Registration [id number] 03/21/2016 07:05:00 Document Registration [id number] 07/22/2017 11:08:00 07/22/2017 23:59:59 CLS Outpatient RIANNA BRADY APRN [facility] RAD 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 [id number] 09/20/2016 13:32:00 09/20/2016 23:59:59 CLS Outpatient CANDACE DOWNEY [facility] RAD CKD STAGE 3 [id number] 10/30/2015 13:20:00 10/30/2015 23:59:59 CLS Outpatient RIANNA BRADY [employer] [facility] RAD LESION OF LIVER [id number] 10/28/2015 07:24:00 10/28/2015 23:59:59 CLS Outpatient RIANNA BRADY [employer] [facility] RAD RENAL MASS [id number] 10/24/2015 10:40:00 10/24/2015 23:59:59 CLS Outpatient RIANNA BRADY [employer] [facility] RAD OSTEOARTHRITIS OF SPINE W/RADICULOPATHY [id number] 04/22/2015 09:33:00 04/22/2015 12:10:00 DIS Outpatient SAMIR COCHRAN DO [facility] SDC BLACK TARRY STOOLS [id number] 04/18/2015 05:42:00 04/18/2015 23:59:59 CLS Outpatient COCHRAN SAMIR GALLEGOS [facility] PREOP BLACK TARRY STOOLS [id number] 11/14/2014 13:51:00 11/14/2014 23:59:59 CLS Outpatient TERESA JOHNSON [employer] [facility] RAD RIGHT INGUINAL PAIN [id number] 08/24/2016 12:08:00 Document Registration [id number] 11/07/2017 10:00:00 11/07/2017 23:59:59 CLS Outpatient RIANNA BRADY [facility] [id number] 01/05/2018 10:20:00 Document Registration [id number] 09/01/2017 13:40:00 Document Registration [id number] 05/05/2017 11:40:00 Document Registration [id number] 04/19/2017 12:40:00 Document Registration [id number] 03/10/2017 14:00:00 Document Registration [id number] 12/29/2016 11:00:00 Document Registration
[2018-02-09 14:40] LABS: BASOPHILS % (AUTO) 1 % (0-10); EOSINOPHILS # (AUTO) 0.2 10^3/uL (0.0-0.3); EOSINOPHILS % (AUTO) 3 % (0-10); HEMATOCRIT 43 % (40-54); HEMOGLOBIN 14.5 G/DL (13.3-17.7); LYMPHOCYTES # (AUTO) 0.9 X 10^3 (1.0-4.0); LYMPHOCYTES % (AUTO) 16 % (12-44); MEAN CORPUSCULAR HEMOGLOBIN 31 PG (25-34); MEAN CORPUSCULAR HGB CONC 34 G/DL (32-36); MEAN CORPUSCULAR VOLUME 90 FL (80-99); MEAN PLATELET VOLUME 10.6 FL (7.4-10.4); MONOCYTES # (AUTO) 0.3 X 10^3 (0.0-1.0); MONOCYTES % (AUTO) 6 % (0-12); NEUTROPHILS # (AUTO) 3.9 X 10^3 (1.8-7.8); NEUTROPHILS % (AUTO) 74 % (42-75); PLATELET COUNT 111 10^3/uL (130-400); RED BLOOD COUNT 4.74 10^6/uL (4.35-5.85); RED CELL DISTRIBUTION WIDTH 14.2 % (10.0-14.5); WHITE BLOOD COUNT 5.4 10^3/uL (4.3-11.0)
[2018-02-09 14:56] LABS: ALBUMIN 3.4 GM/DL (3.2-4.5); BILIRUBIN,TOTAL 0.8 MG/DL (0.1-1.0); CALCIUM 9.1 MG/DL (8.5-10.1); CREATININE SERUM 1.4 MG/DL (0.60-1.30); MAGNESIUM 1.7 MG/DL (1.8-2.4); POTASSIUM 4.5 MMOL/L (3.6-5.0); TOTAL PROTEIN 7.4 GM/DL (6.4-8.2)
--- NOTE | 2018-02-09 15:03 | ED Abdominal Pain ---
General Chief Complaint: Abdominal/GI Problems Stated Complaint: ABD PAIN Nursing Triage Note: PT ARRIVED PER EMS FROM [facility], PT HAS VERY DISTENDED ABD, HAS HX OF KIDNEY CA, HX HEP C STATES HAS BEEN SWELLING FOR A COUPLE WEEKS, STATES HAS BEEN HAVING VERY YELLOW DIARRHEA AT TIMES, SL IN PLACE R FA BY [facility]. PT HAS HAD 400CC NS BY EMS Sepsis Screen: No Definite Risk Source of Information: Patient Exam Limitations: No Limitations History of Present Illness Date Seen by Provider: Feb 09, 2018 Time Seen by Provider: 14:25 Initial Comments Here with report of abdominal distention that has been going on for couple of weeks. Also having very foul smelling/yellow diarrhea. He was seen at [facility] today and sent here for further evaluation. Denies nausea or vomiting. Denies fever or chills. Is a smoker and recently has cut down to almost quit. He does have history of hepatitis C that was treated in supposedly cured. That was from a tattoo many years ago. She denies significant heavy drinking. Did have renal cancer and had left nephrectomy. Also has abdominal ventral hernia repair and appears to have return of hernia. This is not strangulated or incarcerated. Timing/Duration: 1 Week, Getting Worse Severity/Quality: Moderate, Aching Location: Generalized Abdomen Modifying Factors: Worsens With Eating, Worsens With Movement Associated Symptoms: No Back Pain, No Chest Pain, No Diaphoresis, No Fever/ Chills; Fatigue; No Nausea/Vomiting; Rash (face that is chronic), Shortness of Air, Weakness Allergies and Home Medications Allergies Coded Allergies: meperidine (Unverified Allergy, Intermediate, HIVES, 04/22/15) codeine (Unverified Adverse Reaction, Mild, NAUSEA, 04/22/15) Home Medications Albuterol Sulfate 8.5 Gm Hfa.aer.ad, 2 PUFF IH QID, (Reported) Budesonide/Formoterol Fumarate 10.2 Gm Hfa.aer.ad, 2 PUFF IH BID, (Reported) Glipizide 5 Mg Tab.er.24, 5 MG PO DAILY, (Reported) Lisinopril/Hydrochlorothiazide 1 Each Tablet, 1 EACH PO DAILY, (Reported) Metformin HCl 1,000 Mg Tablet, 1,000 MG PO DAILY, (Reported) Pantoprazole Sodium 40 Mg Tablet.dr, 40 MG PO BID Prescribed by: SAMIR COCHRAN on 04/22/151104 Sucralfate 1 Gm Tablet, 1 GM PO QID Prescribed by: SAMIR COCHRAN on 04/22/15 1105 Patient Home Medication List Home Medication List Reviewed: Yes Review of Systems Review of Systems Constitutional: see HPI; No chills, No fever EENTM: No Symptoms Reported Respiratory: See HPI, Cough, Shortness of Air Cardiovascular: Denies Chest Pain, Denies Edema Gastrointestinal: Abdomen Distended, Abdominal Pain, Diarrhea Genitourinary: No Symptoms Reported Musculoskeletal: no symptoms reported All Other Systems Reviewed Negative Unless Noted: Yes Past Vdzjclk-Sxlbgm-Qabkbk Hx Past Med/Social Hx: Reviewed Nursing Past Med/Soc Hx Patient Social History Alcohol Use: Denies Use Recreational Drug Use: No Smoking Status: Former Smoker Recent Foreign Travel: No Contact w/Someone Who Travel: No Recent Infectious Disease Expo: No Recent Hopitalizations: No Physical Abuse: No Sexual Abuse: No Seasonal Allergies Seasonal Allergies: No Past Medical History Surgeries: Yes (KIDNEY REMOVED) Respiratory: Yes (COPD) Cardiac: No Neurological: No Genitourinary: Yes (L KIDNEY REMOVED) Renal Failure Gastrointestinal: No Musculoskeletal: No Endocrine: Yes Diabetes, Non-Insulin dep Cancer: Yes Kidney Did You Recieve Any Treatments: Yes What Type of Treatment Did You: Surgical Intervention Psychosocial: No Integumentary: No Family Medical History Reviewed Nursing Family Hx No Pertinent Family Hx Physical Exam Vital Signs Vital Signs - First Documented 02/09/18 14:20 Temp 97.5 Pulse 81 Resp 18 B/P (MAP) 152/107 (122) Pulse Ox 96 Capillary Refill : Less Than 3 Seconds Height/Weight/BMI Height: 5'6.00" Weight: 166lbs. oz. 75.875199kg; BMI Method:Stated General Appearance: WD/WN, no apparent distress HEENT: PERRL/EOMI, pharynx normal; No scleral icterus (R), No scleral icterus ( L) Neck: full range of motion, supple Respiratory: no accessory muscle use, crackles (bilateral bases), wheezing (. Trace) Cardiovascular: regular rate, rhythm, no murmur Peripheral Pulses: 2+ Dorsalis Pedis (R), 2+ Left Dors-Pedis (L), 2+ Radial Pulses (R), 2+ Radial Pulses (L) Gastrointestinal: soft, distended, tenderness (upper abdomen bilateral), hepatomegaly Extremities: non-tender, normal inspection Back: normal inspection, no CVA tenderness, no vertebral tenderness Neurologic/Psychiatric: no motor/sensory deficits, alert, normal mood/affect Skin: normal color, warm/dry; No jaundice Focused Exam Lactate Level 02/09/18 15:04: Lactic Acid Level 0.89 Lactic Acid Level Laboratory Tests Test 02/09/18 15:04 Lactic Acid Level 0.89 MMOL/L (0.50-2.00) Progress/Results/Core Measures Results/Orders Lab Results Laboratory Tests Test 02/09/18 14:25 02/09/18 15:04 02/09/18 16:00 Range/Units White Blood Count 5.4 4.3-11.0 10^3/uL Red Blood Count 4.74 4.35-5.85 10^6/uL Hemoglobin 14.5 13.3-17.7 G/DL Hematocrit 43 40-54 % Mean Corpuscular Volume 90 80-99 FL Mean Corpuscular Hemoglobin 31 25-34 PG Mean Corpuscular Hemoglobin Concent 34 32-36 G/DL Red Cell Distribution Width 14.2 10.0-14.5 % Platelet Count 111 L 130-400 10^3/uL Mean Platelet Volume 10.6 H 7.4-10.4 FL Neutrophils (%) (Auto) 74 42-75 % Lymphocytes (%) (Auto) 16 12-44 % Monocytes (%) (Auto) 6 0-12 % Eosinophils (%) (Auto) 3 0-10 % Basophils (%) (Auto) 1 0-10 % Neutrophils # (Auto) 3.9 1.8-7.8 X 10^3 Lymphocytes # (Auto) 0.9 L 1.0-4.0 X 10^3 Monocytes # (Auto) 0.3 0.0-1.0 X 10^3 Eosinophils # (Auto) 0.2 0.0-0.3 10^3/uL Basophils # (Auto) 0.0 0.0-0.1 10^3/uL Prothrombin Time 13.1 12.2-14.7 SEC INR Comment 1.0 0.8-1.4 Activated Partial Thromboplast Time 29 24-35 SEC Sodium Level 136 135-145 MMOL/L Potassium Level 4.5 3.6-5.0 MMOL/L Chloride Level 106 98-107 MMOL/L Carbon Dioxide Level 22 21-32 MMOL/L Anion Gap 8 5-14 MMOL/L Blood Urea Nitrogen 22 H 7-18 MG/DL Creatinine 1.40 H 0.60-1.30 MG/DL Estimat Glomerular Filtration Rate 50 BUN/Creatinine Ratio 16 Glucose Level 214 H 70-105 MG/DL Calcium Level 9.1 8.5-10.1 MG/DL Corrected Calcium 9.6 8.5-10.1 MG/DL Magnesium Level 1.7 L 1.8-2.4 MG/DL Total Bilirubin 0.8 0.1-1.0 MG/DL Aspartate Amino Transf (AST/SGOT) 61 H 5-34 U/L Alanine Aminotransferase (ALT/SGPT) 44 0-55 U/L Alkaline Phosphatase 264 H 40-136 U/L Ammonia 48 H 11-32 UMOL/L B-Type Natriuretic Peptide 151.0 H <100.0 PG/ML Total Protein 7.4 6.4-8.2 GM/DL Albumin 3.4 3.2-4.5 GM/DL Lactic Acid Level 0.89 0.50-2.00 MMOL/L Urine Color YELLOW Urine Clarity SLIGHTLY CLOUDY Urine pH 6 5-9 Urine Specific [place] 1.015 L 1.016-1.022 Urine Protein 3+ H NEGATIVE Urine Glucose (UA) NEGATIVE NEGATIVE Urine Ketones NEGATIVE NEGATIVE Urine Nitrite NEGATIVE NEGATIVE Urine Bilirubin NEGATIVE NEGATIVE Urine Urobilinogen 1 NORMAL MG/DL Urine Leukocyte Esterase NEGATIVE NEGATIVE Urine RBC (Auto) 3+ H NEGATIVE Urine RBC 2-5 H /HPF Urine WBC NONE /HPF Urine Crystals NONE /LPF Urine Bacteria NEGATIVE /HPF Urine Casts NONE /LPF Urine Mucus NEGATIVE /LPF Urine Culture Indicated NO My Orders Orders - SAMMY ROWE MD Ammonia (02/09/18 14:31) BNP (02/09/18 14:31) Cbc With Automated Diff (02/09/18 14:31) Comprehensive Metabolic Panel (02/09/18 14:31) Lactic Acid Analyzer (02/09/18 14:31) Magnesium (02/09/18 14:31) Ua Culture If Indicated (02/09/18 14:31) Ct Chest/Abdomen/Pelvis Wo (02/09/18 14:31) Blood Culture (10/11/18 14:45) Protime With Inr (02/09/18 15:54) Partial Thromboplastin Time (02/09/18 15:54) Vital Signs/I&O 02/09/18 14:20 Temp 97.5 Pulse 81 Resp 18 B/P (MAP) 152/107 (122) Pulse Ox 96 Blood Pressure Mean: 122 Progress Progress Note : Progress Note Seen and evaluated. IV, labs, blood cultures, lactic acid, ammonia level and CT chest, abdomen and pelvis ordered. This will be done without contrast due to the patient's known chronic renal disease and history of nephrectomy. Monitor patient. 1611: I have talked with Dr. Williamson at [address] Ramirez. We did review the radiology results. Patient has mass within the right lobe of the liver. CT also reports multiple small nodules within the lungs although there is no break mass there. Patient does have history of renal cell carcinoma. This could be metastatic disease or parasellar carcinoma. Further workup is indicated. Patient will get MRI without contrast tomorrow due to absence of kidney and have further evaluation and characterization of the liver disease. Patient also has gallstones. It does not appear that he has active gallbladder disease at this point. All findings and concerns were discussed with patient and family who agree with admission. We will continue clear liquid diet and diabetes control. Admit, inpatient status. Patient and family agree with plan. Diagnostic Imaging Diagonstic Imaging: CT Plain Films/CT/US/NM/MRI: chest, abdomen, pelvis Comments VIA [facility] [place], [place] NAME: LUIZ FREITAS [facility] REC#: [id number] PT STATUS: REG ER : 1945 PHYSICIAN: SAMMY ROWE MD ADMIT DATE: 02/09/18/ER Draft Date of Exam:02/09/18 CT CHEST/ABDOMEN/PELVIS WO PROCEDURE: CT chest, abdomen, and pelvis without contrast. TECHNIQUE: Multiple contiguous axial images were obtained through the chest, abdomen, and pelvis without the use of intravenous contrast. INDICATION: Distended abdomen. History of renal cell carcinoma. History of hepatitis C with cirrhosis. COMPARISON: 10/28/2015. FINDINGS: CT chest: Evaluation of the lung ramirez demonstrates juxtapleural nodular density within the lateral margins of the left upper lobe that measures 1 x 0.6 cm (image 19, series 2). Smaller 4 mm micronodular density is also seen slightly more inferiorly also within the left upper lobe (image 27, series 2). Within the lingula, there is a 0.8 x 1.3 cm nodular density (images 42 and 43, series 2). On the right, there is a 5 mm micronodular density near the junction of the major and minor fissures (image 33, series 2). Within the medial segment of the right middle lobe, there is a 5-6 mm micronodular density. 8 mm micronodular density is also seen within the base of the right lower lobe. This is stable compared to 10/28/2015. There is no focal consolidation, pleural effusion, nor pneumothorax. There is background of mild emphysematous disease. Cardiomediastinal structures show normal heart size. There is no large pericardial effusion. There is advanced calcified coronary atherosclerosis. There is also moderate calcified aortic atherosclerotic disease. No pathologically enlarged or morphologically abnormal adenopathy is seen within the mediastinum, azam, nor axilla. Bony structures show no acute abnormalities. No lytic or blastic bony lesions are identified. CT abdomen: There is cirrhotic morphology to the liver. There is subtle area of relative hypodensity involving a large portion of the right lobe of the liver. Area in question primarily involves segments 5 and 8. It measures 6.6 x 9.2 cm in maximal axial dimension and extends 10.8 cm in length. Findings are concerning for primary hepatocellular carcinoma. There is sequela of portal venous hypertension including splenomegaly and mild abdominal pelvic ascites. No focal splenic lesion is seen. Left kidney is surgically absent. Multiple nonobstructive right renal calculi are noted. No focal renal masses are seen on this noncontrast exam. The adrenal glands and pancreas have an unremarkable noncontrast CT appearance. Note is made of cholelithiasis. There is no loculated fluid collection or free air within the abdomen. No abnormal adenopathy is seen. Bony structures show no acute abnormalities. There is diffuse advanced calcified aortic and arterial atherosclerosis, particularly involving the left common iliac artery. CT pelvis: Small amount of ascites is also noted within the pelvis. There is no loculated air-fluid collection or free air. No abnormal adenopathy is seen. Urinary bladder is unopacified. No calculi are seen within the urinary bladder. Bony structures show no acute abnormalities. IMPRESSION: 1. Hepatic cirrhosis with sequela of portal venous hypertension including mild abdominopelvic ascites and splenomegaly. 2. Subtle area of relative hypoattenuation involving the right lobe of the liver concerning for malignancy. Hepatocellular carcinoma would be of primary concern given the background of cirrhosis. Correlation with postcontrast MRI is recommended additionally, area in question does appear amenable to CT-guided biopsy. 3. Cholelithiasis. 4. Multiple nonobstructive right renal calculi. 5. Advanced calcified aortic, coronary, and arterial atherosclerosis. 6. Multiple pulmonary nodules and micronodules. Given the history of renal cell carcinoma and mass within the liver, findings do raise strong concern for metastatic disease. 7. Background of mild emphysematous disease. Dictated on workstation # [id number] Dict: 02/09/18 1537 Trans: 02/09/18 1600 [facility] [id number] Interpreted by: LEXY QUINTERO MD Electronically signed by: Departure Communication (Admissions) Time/Spoke to Admitting Phy: 15:49 Time/Spoke to Consulting Phy: 16:11 Impression Primary Impression: Liver mass, right lobe Additional Impressions: Abdominal pain Qualified Codes: R10.10 - Upper abdominal pain, unspecified Ascites Qualified Codes: R18.8 - Other ascites Disposition: ADMITTED INPATIENT Condition: Stable Admissions Decision to Admit Reason: Admit from ER (General) Decision to Admit/Date: Feb 09, 2018 Time/Decision to Admit Time: 15:49 Departure-Patient Inst. Referrals: PASTORA SALAZAR DO (PCP/Family) Primary Care Physician SAMMY ROWE MD Feb 09, 2018 15:03
--- NOTE | 2018-02-09 16:01 | Diagnostic Imaging Report ---
PROCEDURE: CT chest, abdomen, and pelvis without contrast. TECHNIQUE: Multiple contiguous axial images were obtained through the chest, abdomen, and pelvis without the use of intravenous contrast. INDICATION: Distended abdomen. History of renal cell carcinoma. History of hepatitis C with cirrhosis. COMPARISON: 10/28/2015. FINDINGS: CT chest: Evaluation of the lung ramirez demonstrates juxtapleural nodular density within the lateral margins of the left upper lobe that measures 1 x 0.6 cm (image 19, series 2). Smaller 4 mm micronodular density is also seen slightly more inferiorly also within the left upper lobe (image 27, series 2). Within the lingula, there is a 0.8 x 1.3 cm nodular density (images 42 and 43, series 2). On the right, there is a 5 mm micronodular density near the junction of the major and minor fissures (image 33, series 2). Within the medial segment of the right middle lobe, there is a 5-6 mm micronodular density. 8 mm micronodular density is also seen within the base of the right lower lobe. This is stable compared to 10/28/2015. There is no focal consolidation, pleural effusion, nor pneumothorax. There is background of mild emphysematous disease. Cardiomediastinal structures show normal heart size. There is no large pericardial effusion. There is advanced calcified coronary atherosclerosis. There is also moderate calcified aortic atherosclerotic disease. No pathologically enlarged or morphologically abnormal adenopathy is seen within the mediastinum, azam, nor axilla. Bony structures show no acute abnormalities. No lytic or blastic bony lesions are identified. CT abdomen: There is cirrhotic morphology to the liver. There is subtle area of relative hypodensity involving a large portion of the right lobe of the liver. Area in question primarily involves segments 5 and 8. It measures 6.6 x 9.2 cm in maximal axial dimension and extends 10.8 cm in length. Findings are concerning for primary hepatocellular carcinoma. There is sequela of portal venous hypertension including splenomegaly and mild abdominal pelvic ascites. No focal splenic lesion is seen. Left kidney is surgically absent. Multiple nonobstructive right renal calculi are noted. No focal renal masses are seen on this noncontrast exam. The adrenal glands and pancreas have an unremarkable noncontrast CT appearance. Note is made of cholelithiasis. There is no loculated fluid collection or free air within the abdomen. No abnormal adenopathy is seen. Bony structures show no acute abnormalities. There is diffuse advanced calcified aortic and arterial atherosclerosis, particularly involving the left common iliac artery. CT pelvis: Small amount of ascites is also noted within the pelvis. There is no loculated air-fluid collection or free air. No abnormal adenopathy is seen. Urinary bladder is unopacified. No calculi are seen within the urinary bladder. Bony structures show no acute abnormalities. IMPRESSION: 1. Hepatic cirrhosis with sequela of portal venous hypertension including mild abdominopelvic ascites and splenomegaly. 2. Subtle area of relative hypoattenuation involving the right lobe of the liver concerning for malignancy. Hepatocellular carcinoma would be of primary concern given the background of cirrhosis. Correlation with postcontrast MRI is recommended additionally, area in question does appear amenable to CT-guided biopsy. 3. Cholelithiasis. 4. Multiple nonobstructive right renal calculi. 5. Advanced calcified aortic, coronary, and arterial atherosclerosis. 6. Multiple pulmonary nodules and micronodules. Given the history of renal cell carcinoma and mass within the liver, findings do raise strong concern for metastatic disease. 7. Background of mild emphysematous disease. Dictated by: Dictated on workstation # [id number]
[2018-02-09 16:09] LABS: BILIRUBIN,URINE NEGATIVE (NEGATIVE); CLARITY,URINE SLIGHTLY CLOUDY; COLOR,URINE YELLOW; GLUCOSE, URINE (UA) NEGATIVE (NEGATIVE); KETONES,URINE NEGATIVE (NEGATIVE); LEUKOCYTE ESTERASE ,URINE NEGATIVE (NEGATIVE); NITRITE,URINE NEGATIVE (NEGATIVE); PH,URINE 6 (5-9); PROTEIN,URINE 3+ (NEGATIVE); UROBILINOGEN,URINE 1 MG/DL (NORMAL)
[2018-02-09 16:15] LABS: PROTHROMBIN TIME PATIENT 13.1 SEC (12.2-14.7)
[2018-02-09 16:20] LABS: BACTERIA,URINE NEGATIVE /HPF
--- OUTSIDE RECORDS SUMMARY | 2018-02-09 17:18 | XMS REPORT | Continuity of Care Document ---
Author Author [facility] Address Unknown Phone Unavailable Allergies Active Description Code Type Severity Reaction Onset Reported/Identified Relationship to Patient Clinical Status Yes codeine [id number] Drug Allergy Mild NAUSEA 04/22/2015 Yes meperidine [id number] Drug Allergy Moderate HIVES 04/22/2015 Medications There [...] DO, PASTORA K 783.21 WEIGHT LOSS 03/05/2013 SLAAZAR DO, PASTORA K 783.5 POLYDIPSIA 03/05/2013 SALAZAR [...] OTHER ABNORMAL BLOOD CHEMISTRY 03/23/2013 SALAZAR DO, PSATORA K V65.42 COUNSELING - SMOKING CESSATION 03/23/2013 [...] K 702.0 ACTINIC KERATOSIS 11/26/2014 TERESA JOHNSON LEAD SOFTWARE ARCHITECT Ot 789.09 12/26/2014 TERESA JOHNSON LEAD SOFTWARE ARCHITECT Ot 789.09 04/22/2015 SAMIR COCHRAN DO Ot E11.9 TYPE 2 DIABETES MELLITUS WITHOUT COMPLIC 04/22/2015 SAMIR COCHRAN DO Ot I85.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 04/22/2015 SAMIR COCHRAN DO Ot K29.70 GASTRITIS, UNSPECIFIED, WITHOUT BLEEDING 04/22/2015 SAMIR COCHRAN DO Ot R19.5 OTHER FECAL ABNORMALITIES 10/27/2015 RIANNA BRADY LEAD SOFTWARE ARCHITECT Ot M47.26 OTHER SPONDYLOSIS WITH RADICULOPATHY, MOIRA 10/27/2015 RIANNA BRADY LEAD SOFTWARE ARCHITECT Ot M47.26 OTHER SPONDYLOSIS WITH RADICULOPATHY, MOIRA 10/28/2015 TERESA JOHNSON LEAD SOFTWARE ARCHITECT Ot 789.09 ABDOMINAL PAIN, OTHER SPECIFIED SITE 10/28/2015 SAMIR COCHRAN DO Ot Z01.818 ENCOUNTER FOR OTHER PREPROCEDURAL EXAMIN 10/28/2015 RIANNA BRADY R LEAD SOFTWARE ARCHITECT Ot M47.26 OTHER SPONDYLOSIS WITH RADICULOPATHY, MOIRA 10/29/2015 RIANNA BRADY LEAD SOFTWARE ARCHITECT Ot I86.8 VARICOSE VEINS OF OTHER SPECIFIED SITES 10/29/2015 RIANNA BRADY LEAD SOFTWARE ARCHITECT Ot K74.60 UNSPECIFIED CIRRHOSIS OF LIVER 10/29/2015 RIANNA BRADY R LEAD SOFTWARE ARCHITECT Ot N28.89 OTHER SPECIFIED DISORDERS OF KIDNEY AND 10/29/2015 RIANNA BRADY R LEAD SOFTWARE ARCHITECT Ot R16.0 HEPATOMEGALY, NOT ELSEWHERE CLASSIFIED 10/29/2015 RIANNA BRADY R LEAD SOFTWARE ARCHITECT Ot R16.1 SPLENOMEGALY, NOT ELSEWHERE CLASSIFIED 10/31/2015 RIANNA BRADY LEAD SOFTWARE ARCHITECT Ot K74.60 UNSPECIFIED CIRRHOSIS OF LIVER 10/31/2015 RIANNA BRADY LEAD SOFTWARE ARCHITECT Ot N28.89 OTHER SPECIFIED DISORDERS OF KIDNEY AND 11/05/2015 RIANNA BRADY R LEAD SOFTWARE ARCHITECT Ot K74.60 UNSPECIFIED CIRRHOSIS OF LIVER 11/05/2015 RIANNA BRADY R LEAD SOFTWARE ARCHITECT Ot N28.89 OTHER SPECIFIED DISORDERS OF KIDNEY AND 11/13/2015 RIANNA BRADY R LEAD SOFTWARE ARCHITECT Ot M47.26 OTHER SPONDYLOSIS WITH RADICULOPATHY, 11/20/2015 RIANNA BRADY LEAD SOFTWARE ARCHITECT Ot I86.8 VARICOSE VEINS OF OTHER SPECIFIED SITES 11/20/2015 RIANNA BRADY LEAD SOFTWARE ARCHITECT Ot K74.60 UNSPECIFIED CIRRHOSIS OF LIVER 11/20/2015 RIANNA BRADY R LEAD SOFTWARE ARCHITECT Ot N28.89 OTHER SPECIFIED DISORDERS OF KIDNEY AND 11/20/2015 RIANNA BRADY LEAD SOFTWARE ARCHITECT Ot R16.0 HEPATOMEGALY, NOT ELSEWHERE CLASSIFIED 11/20/2015 RIANNA BRADY LEAD SOFTWARE ARCHITECT Ot R16.1 SPLENOMEGALY, NOT ELSEWHERE CLASSIFIED 11/20/2015 RIANNA BRADY R LEAD SOFTWARE ARCHITECT Ot K74.60 UNSPECIFIED CIRRHOSIS OF LIVER 11/20/2015 RIANNA BRADY R LEAD SOFTWARE ARCHITECT Ot N28.89 OTHER SPECIFIED DISORDERS OF KIDNEY AND 12/05/2015 RIANNA BRADY R LEAD SOFTWARE ARCHITECT Ot M47.26 OTHER SPONDYLOSIS WITH RADICULOPATHY, MOIRA 12/05/2015 RIANNA BRADY R LEAD SOFTWARE ARCHITECT Ot I86.8 VARICOSE VEINS OF OTHER SPECIFIED SITES 12/05/2015 VANE BRADYELE R LEAD SOFTWARE ARCHITECT Ot K74.60 UNSPECIFIED CIRRHOSIS OF LIVER 12/05/2015 BRADY, RIANNA R LEAD SOFTWARE ARCHITECT Ot N28.89 OTHER SPECIFIED DISORDERS OF KIDNEY AND 12/05/2015 CAITLYN RIANNA R LEAD SOFTWARE ARCHITECT Ot R16.0 HEPATOMEGALY, NOT ELSEWHERE CLASSIFIED 12/05/2015 BRADYVANE FajardoELE R LEAD SOFTWARE ARCHITECT Ot R16.1 SPLENOMEGALY, NOT ELSEWHERE CLASSIFIED 12/05/2015 BRADY RIANNA R LEAD SOFTWARE ARCHITECT Ot K74.60 UNSPECIFIED CIRRHOSIS OF LIVER 12/05/2015 VANE BRADYELE R LEAD SOFTWARE ARCHITECT Ot N28.89 OTHER SPECIFIED DISORDERS OF KIDNEY AND 09/17/2016 TERESA JOHNSON LEAD SOFTWARE ARCHITECT Ot 789.09 ABDOMINAL PAIN, OTHER SPECIFIED SITE 09/17/2016 BOX ELDER DO, SAMIR D Ot Z01.818 ENCOUNTER FOR OTHER PREPROCEDURAL EXAMIN 09/17/2016 RIANNA BRADY R LEAD SOFTWARE ARCHITECT Ot M47.26 OTHER SPONDYLOSIS WITH RADICULOPATHY, MOIRA 09/17/2016 CAITLYN RIANNA R LEAD SOFTWARE ARCHITECT Ot I86.8 VARICOSE VEINS OF OTHER SPECIFIED SITES 09/17/2016 RIANNA BRADY R LEAD SOFTWARE ARCHITECT Ot K74.60 UNSPECIFIED CIRRHOSIS OF LIVER 09/17/2016 CAITLYN RIANNA R LEAD SOFTWARE ARCHITECT Ot N28.89 OTHER SPECIFIED DISORDERS OF KIDNEY AND 09/17/2016 BRADY, RIANNA R LEAD SOFTWARE ARCHITECT Ot R16.0 HEPATOMEGALY, NOT ELSEWHERE CLASSIFIED 09/17/2016 VANE BRADYELE R LEAD SOFTWARE ARCHITECT Ot R16.1 SPLENOMEGALY, NOT ELSEWHERE CLASSIFIED 09/17/2016 BRADY, RIANNA R LEAD SOFTWARE ARCHITECT Ot K74.60 UNSPECIFIED CIRRHOSIS OF LIVER 09/17/2016 VANE BRADYELE R LEAD SOFTWARE ARCHITECT Ot N28.89 OTHER SPECIFIED DISORDERS OF KIDNEY AND 09/20/2016 TERESA JOHNSON LEAD SOFTWARE ARCHITECT Ot 789.09 ABDOMINAL PAIN, OTHER SPECIFIED SITE 09/20/2016 COCHRAN DO, SAMIR D Ot Z01.818 ENCOUNTER FOR OTHER PREPROCEDURAL EXAMIN 09/20/2016 RIANNA BRADY R LEAD SOFTWARE ARCHITECT Ot M47.26 OTHER SPONDYLOSIS WITH RADICULOPATHY, MOIRA 09/20/2016 RIANNA BRADY LEAD SOFTWARE ARCHITECT Ot I86.8 VARICOSE VEINS OF OTHER SPECIFIED SITES 09/20/2016 RIANNA BRADY LEAD SOFTWARE ARCHITECT Ot K74.60 UNSPECIFIED CIRRHOSIS OF LIVER 09/20/2016 RIANNA BRADY LEAD SOFTWARE ARCHITECT Ot N28.89 OTHER SPECIFIED DISORDERS OF KIDNEY AND 09/20/2016 RIANNA BRADY LEAD SOFTWARE ARCHITECT Ot R16.0 HEPATOMEGALY, NOT ELSEWHERE CLASSIFIED 09/20/2016 RIANNA BRADY LEAD SOFTWARE ARCHITECT Ot R16.1 SPLENOMEGALY, NOT ELSEWHERE CLASSIFIED 09/20/2016 RIANNA BRADY LEAD SOFTWARE ARCHITECT Ot K74.60 UNSPECIFIED CIRRHOSIS OF LIVER 09/20/2016 RIANNA BRADY LEAD SOFTWARE ARCHITECT Ot N28.89 OTHER SPECIFIED DISORDERS OF KIDNEY AND 10/13/2016 CANDACE DOWNEY OVERHEAD CLEANER-C Ot B17.10 ACUTE HEPATITIS C WITHOUT HEPATIC COMA 10/13/2016 CANDACE DOWNEY OVERHEAD CLEANER-C Ot 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26 OTHER SPONDYLOSIS WITH RADICULOPATHY, MOIRA 07/22/2017 RIANNA BRADY LEAD SOFTWARE ARCHITECT Ot I86.8 VARICOSE VEINS OF OTHER SPECIFIED SITES 07/22/2017 RIANNA BRADY LEAD SOFTWARE ARCHITECT Ot K74.60 UNSPECIFIED CIRRHOSIS OF LIVER 07/22/2017 RIANNA BRADY LEAD SOFTWARE ARCHITECT Ot N28.89 OTHER SPECIFIED DISORDERS OF KIDNEY AND 07/22/2017 RIANNA BRADY LEAD SOFTWARE ARCHITECT Ot R16.0 HEPATOMEGALY, NOT ELSEWHERE CLASSIFIED 07/22/2017 RIANNA BRADY LEAD SOFTWARE ARCHITECT Ot R16.1 SPLENOMEGALY, NOT ELSEWHERE CLASSIFIED 07/22/2017 RIANNA BRADY LEAD SOFTWARE ARCHITECT Ot K74.60 UNSPECIFIED CIRRHOSIS OF LIVER 07/22/2017 RIANNA BRADY LEAD SOFTWARE ARCHITECT Ot N28.89 OTHER SPECIFIED DISORDERS OF KIDNEY AND 07/22/2017 CANDACE DOWNEY OVERHEAD CLEANER-C Ot B17.10 ACUTE HEPATITIS C WITHOUT HEPATIC COMA 07/22/2017 CANDACE DOWNEY OVERHEAD CLEANER-C Ot E11.22 TYPE 2 DIABETES MELLITUS W DIABETIC ANTHROPOMETRIST 07/22/2017 CANDACE DOWNEY OVERHEAD CLEANER-C Ot E78.5 HYPERLIPIDEMIA, UNSPECIFIED 07/22/2017 CANDACE DOWNEY OVERHEAD CLEANER-C Ot J44.9 CHRONIC OBSTRUCTIVE PULMONARY DISEASE, U 07/22/2017 CANDACE DOWNEY OVERHEAD CLEANER-C Ot K21.9 GASTRO-ESOPHAGEAL REFLUX DISEASE WITHOUT 07/22/2017 CANDACE DOWNEY OVERHEAD CLEANER-C Ot N18.3 CHRONIC KIDNEY DISEASE, STAGE 3 (MODERAT 07/24/2017 RIANNA BRADY LEAD SOFTWARE ARCHITECT Ot M46.86 OTHER SPECIFIED INFLAMMATORY SPONDYLOPAT 07/24/2017 RIANNA BRADY LEAD SOFTWARE ARCHITECT Ot M47.26 OTHER SPONDYLOSIS WITH RADICULOPATHY, MOIRA 07/24/2017 RIANNA BRADY LEAD SOFTWARE ARCHITECT Ot M48.07 SPINAL STENOSIS, LUMBOSACRAL REGION 07/24/2017 RIANNA BRADY LEAD SOFTWARE ARCHITECT Ot M51.17 INTVRT DISC DISORDERS W RADICULOPATHY, L 08/02/2017 RIANNA BRADY LEAD SOFTWARE ARCHITECT Ot M46.86 OTHER SPECIFIED INFLAMMATORY SPONDYLOPAT 08/02/2017 RIANNA BRADY LEAD SOFTWARE ARCHITECT Ot M47.26 OTHER SPONDYLOSIS WITH RADICULOPATHY, MOIRA 08/02/2017 RIANNA BRADY LEAD SOFTWARE ARCHITECT Ot M48.07 SPINAL STENOSIS, LUMBOSACRAL REGION 08/02/2017 RIANNA BRADY LEAD SOFTWARE ARCHITECT Ot M51.17 INTVRT DISC DISORDERS W RADICULOPATHY, L 08/03/2017 RIANNA BRADY LEAD SOFTWARE ARCHITECT Ot M46.86 OTHER SPECIFIED INFLAMMATORY SPONDYLOPAT 08/03/2017 RIANNA BRADY LEAD SOFTWARE ARCHITECT Ot M47.26 OTHER SPONDYLOSIS WITH RADICULOPATHY, MOIRA 08/03/2017 RIANNA BRADY LEAD SOFTWARE ARCHITECT Ot M48.07 SPINAL STENOSIS, LUMBOSACRAL REGION 08/03/2017 BRADYRIANNA R LEAD SOFTWARE ARCHITECT Ot M51.17 INTVRT DISC DISORDERS W RADICULOPATHY, L 09/30/2017 RIANNA BRADY R LEAD SOFTWARE ARCHITECT Ot M46.86 OTHER SPECIFIED INFLAMMATORY SPONDYLOPAT 09/30/2017 RIANNA BRADY R LEAD SOFTWARE ARCHITECT Ot M47.26 OTHER SPONDYLOSIS WITH RADICULOPATHY, MOIRA 09/30/2017 RIANNA BRADY R LEAD SOFTWARE ARCHITECT Ot M48.07 SPINAL STENOSIS, LUMBOSACRAL REGION 09/30/2017 RIANNA BRADY R LEAD SOFTWARE ARCHITECT Ot M51.17 INTVRT DISC DISORDERS W RADICULOPATHY, L 10/26/2017 RIANNA BRADY R LEAD SOFTWARE ARCHITECT Ot M46.86 OTHER SPECIFIED INFLAMMATORY SPONDYLOPAT 10/26/2017 RIANNA BRADY R LEAD SOFTWARE ARCHITECT Ot M47.26 OTHER SPONDYLOSIS WITH RADICULOPATHY, MOIRA 10/26/2017 RIANNA BRADY R LEAD SOFTWARE ARCHITECT Ot M48.07 SPINAL STENOSIS, LUMBOSACRAL REGION 10/26/2017 RIANNA BRADY R LEAD SOFTWARE ARCHITECT Ot M51.17 INTVRT DISC DISORDERS W RADICULOPATHY, L Procedures Code Description [place] [address] ROUTINE VENIPUNCTURE 03/06/2013 51757 A1C (IN-HOUSE) 03/06/2013 65953 LIPID PANEL 03/06/2013 6302490 GFR CALC (RESULT ONLY) 03/06/2013 43887 CMP 03/06/2013 97550 TSH 03/06/2013 93471 CBC 03/06/2013 92018 ROUTINE VENIPUNCTURE 03/23/2013 45916 MICRO ALBUMIN-IN HOUSE 03/23/2013 94193 A1C (IN-HOUSE) 03/23/2013 91081 CMP 03/23/2013 37685 IRON SERUM 03/23/2013 55693 IRON BNDNG CAP 03/23/2013 3540751 GFR CALC (RESULT ONLY) 03/23/2013 37080 FERRITIN 03/23/2013 19140 HEPATITIS PROFILE 03/23/2013 [id number] HCV INDEX (RESULT ONLY) 03/23/2013 IRGROUP IRON GROUP (Iron,TIBC, Ferritin) 03/25/2013 SADIA RINALDI 03/25/2013 95548 PULMONARY FUNCTION TEST (IN- HOUSE) 04/06/2013 82127 RESPIRATORY FLOW VOLUME LOOP 04/06/2013 94950 PULMONARY EDUCATION 04/06/2013 52445 A1C (IN-HOUSE) 07/23/2013 2028F FOOT EXAM PERFORMED 07/23/2013 23023 ROUTINE VENIPUNCTURE 07/23/2013 15268 EYE EXAM PERFORMED 07/23/2013 8800647 GFR CALC (RESULT ONLY) 07/23/2013 32400 CMP 07/23/2013 53201 LIPID PANEL 10/23/2013 59988 A1C (IN-HOUSE) 10/23/2013 96405 ROUTINE VENIPUNCTURE 11/05/2013 34360 CMP 11/05/2013 [id number] GFR CALC (RESULT ONLY) 11/05/2013 89898 ROUTINE VENIPUNCTURE 01/28/2014 63198 [facility] 01/28/2014 65772 A1C (IN-HOUSE) 01/28/2014 Results Test Result Range [...] 0.8-1.2 Prothrombin Time 10.5 sec 9.1-12.0 Thyroid [place] Profile - 07/20/16 12:24 TSH 4.490 uIU/mL [...] 0.0-0.1 Urinalysis, Complete - 08/23/16 14:05 Specific Deming 1.020 1.005-1.030 pH 6.0 5.0-7.5 Urine-Color Yellow [...] 0.0-0.1 Urinalysis, Complete - 12/29/16 11:14 Specific Deming 1.018 1.005-1.030 pH 6.5 5.0-7.5 Urine-Color Yellow [...] - 03/10/17 14:42 ABSOLUTE NEUTROPHILS 3759 cells/uL 7558-1146 ABSOLUTE MONOCYTES 209 cells/uL 200-950 ABSOLUTE EOSINOPHILS [...] - 09/01/17 13:45 ABSOLUTE NEUTROPHILS 5122 cells/uL 3156-3899 ABSOLUTE MONOCYTES 125 cells/uL 200-950 ABSOLUTE EOSINOPHILS [...] 01/05/18 10:23 VITAMIN D,25-OH,TOTAL,IA 43 ng/mL 30-100 Complete blood count (CBC) with automated white blood cell (WBC) differential - 02/09/18 14:25 Blood leukocytes automated count (number/volume) 5.4 10*3/uL 4.3-11.0 Blood erythrocytes automated count (number/volume) 4.74 10*6/uL 4.35-5.85 Venous blood hemoglobin measurement (mass/volume) 14.5 g/dL 13.3-17.7 Blood hematocrit (volume fraction) 43 % 40-54 Automated erythrocyte mean corpuscular volume 90 [foz_us] 80-99 Automated erythrocyte mean corpuscular hemoglobin (mass per erythrocyte) 31 pg 25-34 Automated erythrocyte mean corpuscular hemoglobin concentration measurement ( mass/volume) 34 g/dL 32-36 Automated erythrocyte distribution width ratio 14.2 % 10.0-14.5 Automated blood platelet count (count/volume) 111 10*3/uL 130-400 Automated blood platelet mean volume measurement 10.6 [foz_us] 7.4-10.4 Automated blood neutrophils/100 leukocytes 74 % 42-75 Automated blood lymphocytes/100 leukocytes 16 % 12-44 Blood monocytes/100 leukocytes 6 % 0-12 Automated blood eosinophils/100 leukocytes 3 % 0-10 Automated blood basophils/100 leukocytes 1 % 0-10 Blood neutrophils automated count (number/volume) 3.9 10*3 1.8-7.8 Blood lymphocytes automated count (number/volume) 0.9 10*3 1.0-4.0 Blood monocytes automated count (number/volume) 0.3 10*3 0.0-1.0 Automated eosinophil count 0.2 10*3/uL 0.0-0.3 Automated blood basophil count (count/volume) 0.0 10*3/uL 0.0-0.1 Comprehensive metabolic panel - 02/09/18 14:25 Serum or plasma sodium measurement (moles/volume) 136 mmol/L 135-145 Serum or plasma potassium measurement (moles/volume) 4.5 mmol/L 3.6-5.0 Serum or plasma chloride measurement (moles/volume) 106 mmol/L 98-107 Carbon dioxide 22 mmol/L 21-32 Serum or plasma anion gap determination (moles/volume) 8 mmol/L 5-14 Serum or plasma urea nitrogen measurement (mass/volume) 22 mg/dL 7-18 Serum or plasma creatinine measurement (mass/volume) 1.40 mg/dL 0.60-1.30 Serum or plasma urea nitrogen/creatinine mass ratio 16 NRG Serum or plasma creatinine measurement with calculation of estimated glomerular filtration rate 50 NRG Serum or plasma glucose measurement (mass/volume) 214 mg/dL 70-105 Serum or plasma calcium measurement (mass/volume) 9.1 mg/dL 8.5-10.1 Serum or plasma total bilirubin measurement (mass/volume) 0.8 mg/dL 0.1-1.0 Serum or plasma alkaline phosphatase measurement (enzymatic activity/volume) 264 U/L 40-136 Serum or plasma aspartate aminotransferase measurement (enzymatic activity/ volume) 61 U/L 5-34 Serum or plasma alanine aminotransferase measurement (enzymatic activity/volume ) 44 U/L 0-55 Serum or plasma protein measurement (mass/volume) 7.4 g/dL 6.4-8.2 Serum or plasma albumin measurement (mass/volume) 3.4 g/dL 3.2-4.5 CALCIUM CORRECTED 9.6 mg/dL 8.5-10.1 Magnesium - 02/09/18 14:25 Magnesium 1.7 mg/dL 1.8-2.4 Ammonia - 02/09/18 14:25 Ammonia 48 umol/L 11-32 Serum or plasma lithium measurement (moles/volume) - 02/09/18 14:25 BNP level 151.0 pg/mL <100.0 PT panel in platelet poor plasma by coagulation assay - 02/09/18 14:25 Prothrombin time (PT) in platelet poor plasma by coagulation assay 13.1 s 12.2-14.7 INR in platelet poor plasma or blood by coagulation assay 1.0 0.8-1.4 Activated partial thromboplastin time (aPTT) in platelet poor plasma bycoagulation assay - 02/09/18 14:25 Activated partial thromboplastin time (aPTT) in platelet poor plasma bycoagulation assay 29 s 24-35 Blood lactic acid measurement (moles/volume) - 02/09/18 15:04 Blood lactic acid measurement (moles/volume) 0.89 mmol/L 0.50-2.00 Complete urinalysis with reflex to culture - 02/09/18 16:00 Urine color determination YELLOW NRG Urine clarity determination SLIGHTLY CLOUDY NRG Urine pH measurement by test strip 6 5-9 Specific gravity of urine by test strip 1.015 1.016- 1.022 Urine protein assay by test strip, semi-quantitative 3+ NEGATIVE Urine glucose detection by automated test strip NEGATIVE NEGATIVE Erythrocytes detection in urine sediment by light microscopy 3+ NEGATIVE Urine ketones detection by automated test strip NEGATIVE NEGATIVE Urine nitrite detection by test strip NEGATIVE NEGATIVE Urine total bilirubin detection by test strip NEGATIVE NEGATIVE Urine urobilinogen measurement by automated test strip (mass/volume) 1 mg/dL NORMAL Urine leukocyte esterase detection by dipstick NEGATIVE NEGATIVE Automated urine sediment erythrocyte count by microscopy (number/high power field) [HPF] NRG Automated urine sediment leukocyte count by microscopy (number/high power field ) NONE NRG Bacteria detection in urine sediment by light microscopy NEGATIVE NRG Crystals detection in urine sediment by light microscopy NONE NRG Casts detection in urine sediment by light microscopy NONE NRG Mucus detection in urine sediment by light microscopy NEGATIVE NRG Complete urinalysis with reflex to culture NO NRG Encounters ACCT No. Visit Date/Time Discharge Status Pt. Type Provider Facility Loc./Unit Complaint [id number] 01/28/2014 10:48:00 01/28/2014 23:59:59 CLS Outpatient MARTIN GALLEGOS PASTORA Oscar [id number] 01/28/2014 10:48:00 01/28/2014 23:59:59 CLS Outpatient SALAZAR DOPASTORA [id number] 10/23/2013 09:24:00 10/23/2013 23:59:59 CLS Outpatient SALAZAR DO PASTORA K [id number] 10/23/2013 09:24:00 10/23/2013 23:59:59 CLS Outpatient SALAZAR PASTORA GALLEGOS [id number] 07/23/2013 09:43:00 07/23/2013 23:59:59 CLS Outpatient SALAZAR PASTORA GALLEGOS [id number] 04/24/2013 09:19:00 04/24/2013 23:59:59 CLS Outpatient PASTORA SALAZAR DO [id number] 04/06/2013 14:53:00 04/06/2013 23:59:59 CLS Outpatient PASTROA SALAZAR DO [id number] 03/23/2013 15:01:00 03/23/2013 23:59:59 CLS Outpatient PASTORA SALAZAR DO [id number] 03/06/2013 07:59:00 03/06/2013 23:59:59 CLS Outpatient PASTORA SALAZAR DO [id number] 03/05/2013 16:37:00 03/05/2013 23:59:59 CLS Outpatient LESTER WESTBROOK APRN [id number] 07/22/2016 16:07:00 Document Registration [id number] 12/30/2016 16:08:00 Document Registration [id number] 03/21/2016 07:05:00 Document Registration [id number] 07/22/2017 11:08:00 07/22/2017 23:59:59 CLS Outpatient RIANNA BRADY APRN [facility] RAD 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 [id number] 09/20/2016 13:32:00 09/20/2016 23:59:59 CLS Outpatient CANDACE DOWNEY [facility] RAD CKD STAGE 3 [id number] 10/30/2015 13:20:00 10/30/2015 23:59:59 CLS Outpatient RIANNA BRADY APRN [facility] RAD LESION OF LIVER [id number] 10/28/2015 07:24:00 10/28/2015 23:59:59 CLS Outpatient RIANNA BRADY APRN [facility] RAD RENAL MASS [id number] 10/24/2015 10:40:00 10/24/2015 23:59:59 CLS Outpatient RIANNA BRADY APRN [facility] RAD OSTEOARTHRITIS OF SPINE W/RADICULOPATHY [id number] 04/22/2015 09:33:00 04/22/2015 12:10:00 DIS Outpatient SAMIR COCHRAN DO [facility] BLACK TARRY STOOLS [id number] 04/18/2015 05:42:00 04/18/2015 23:59:59 CLS Outpatient SAMIR COCHRAN DO [facility] PREOP BLACK TARRY STOOLS [id number] 11/14/2014 13:51:00 11/14/2014 23:59:59 CLS Outpatient TERESA JOHNSON APRN [facility] RAD RIGHT INGUINAL PAIN [id number] 02/09/2018 14:42:00 Document Registration [id number] 08/24/2016 12:08:00 Document Registration [id number] 11/07/2017 10:00:00 11/07/2017 23:59:59 CLS Outpatient RIANNA BRADY [facility] [id number] 01/05/2018 10:20:00 Document Registration [id number] 09/01/2017 13:40:00 Document Registration [id number] 05/05/2017 11:40:00 Document Registration [id number] 04/19/2017 12:40:00 Document Registration [id number] 03/10/2017 14:00:00 Document Registration [id number] 12/29/2016 11:00:00 Document Registration
[2018-02-09] MEDS: NS IV 1000 ML 1,000 ML IV SCH (17:30)
[2018-02-09] MEDS ORDERED: ONDANSETRON 4 MG/2 ML (SDV) Z0FRAN IVP PRN (17:45)
[2018-02-09] MEDS ORDERED: GLIP5TAB26 PO (18:22)
[2018-02-09] MEDS ORDERED: ALBU18HF2 INH (18:22)
[2018-02-09] MEDS ORDERED: ALLO100T PO (18:22)
[2018-02-09] MEDS ORDERED: PIOG15TA67 PO (18:22)
[2018-02-09] MEDS ORDERED: FLUT1DIS26 INH (18:22)
[2018-02-09] MEDS ORDERED: LISI10TA2 PO (18:22)
[2018-02-09] MEDS ORDERED: ASPI-586 PO (18:23)
[2018-02-09] MEDS ORDERED: CALC-250 PO (18:23)
[2018-02-09] MEDS ORDERED: FLU QUADRIvalent (5+ YOA) 2018-2019 (AFLURIA) 0.5 ML IM ONE (18:30)
[2018-02-09 18:35] VITALS: BP 195/92
[2018-02-09] MEDS: lisINopril 10 MG (PRINIVIL) TABLET PO SCH (18:51)
[2018-02-09] MEDS: fentaNYL INJECTION 100 MCG/2 ML AMP IVP PRN ×2 (18:57→20:54)
[2018-02-09] MEDS: inSUlin ASPART (NovoLOG) 1 UNIT/0.01 ML (CHARGE PER UNIT) SC SCH (20:08)
[2018-02-09 20:15] VITALS: BP 179/86
--- NOTE | 2018-02-09 21:47 | Consultation ---
History of Present Illness History of Present Illness Patient Consulted On(storm/time) 02/09/18 21:41 Date Seen by Provider: Feb 09, 2018 Time Seen by Provider: 20:55 History of Present Illness Consult requested by Dr. Williamson for liver mass/ascites 72 year old male with Hx of Hep C that was possibly treated, left nephrectomy, cirrhosis, c/o 3-4 weeks of abdominal pain and bloating and yellow, foul smelling diarrhea that has been worsening over the last week. Patient states this feels like that smells like is coming out of him. Patient is also having pain where he presented says in the left upper quadrant now it's more in the right upper quadrant. Pt describes the pain as achy that is worse with eating and moving. Pt states he has 10-15 episodes of diarrhea per day. Pt admits SOB. Denies CP, back pain, N/V, blood in stool or recent antibiotic use. Patient had CT scan demonstrating cholelithiasis and a 6 x 9 cm right lobe liver mass, cirrhotic-appearing liver, absent left kidney, pulmonary nodules that I reviewed. Allergies and Home Medications Allergies Coded Allergies: meperidine (Unverified Allergy, Intermediate, HIVES, 04/22/15) codeine (Unverified Adverse Reaction, Mild, NAUSEA, 04/22/15) Home Medications Albuterol Sulfate 8.5 Gm Hfa.aer.ad, 2 PUFF IH QID, (Reported) Aspirin 81 Mg Tablet.dr, 81 MG PO DAILY, (Reported) Budesonide/Formoterol Fumarate 10.2 Gm Hfa.aer.ad, 2 PUFF IH BID, (Reported) Glipizide 5 Mg Tab.er.24, 5 MG PO DAILY, (Reported) Lisinopril/Hydrochlorothiazide 1 Each Tablet, 1 EACH PO DAILY, (Reported) Metformin HCl 1,000 Mg Tablet, 1,000 MG PO DAILY, (Reported) Pantoprazole Sodium 40 Mg Tablet.dr, 40 MG PO BID Prescribed by: SAMIR COCHRAN on 04/22/151104 Sucralfate 1 Gm Tablet, 1 GM PO QID Prescribed by: SAMIR COHCRAN on 04/22/15 1105 Patient Home Medication List Home Medication List Reviewed: Yes Past Aaoykjc-Srpltm-Onckff Hx Patient Social History Alcohol Use: Denies Use Recreational Drug Use: No Smoking Status: Former Smoker Former Smoker, Quit: Jan 25, 2018 Type Used: Cigarettes Recent Foreign Travel: No Contact w/Someone Who Travel: No Recent Infectious Disease Expo: No Recent Hopitalizations: No Physical Abuse Screen: No Sexual Abuse: No Seasonal Allergies Seasonal Allergies: No Surgeries History of Surgeries: Yes (KIDNEY REMOVED) Respiratory History of Respiratory Disorde: Yes (COPD) Respiratory Disorders: COPD Cardiovascular History of Cardiac Disorders: Yes Neurological History of Neurological Disord: No Genitourinary History of Genitourinary Disor: Yes (L KIDNEY REMOVED) Genitourinary Disorders: Renal Failure Gastrointestinal History of Gastrointestinal Di: No Gastrointestinal Disorders: Abdominal Hernia Musculoskeletal History of Musculoskeletal Dis: No Endocrine History of Endocrine Disorders: Yes Endocrine Disorders: Diabetes, Non-Insulin dep Cancer History of Cancer: Yes Cancer: Kidney Psychosocial History of Psychiatric Problem: No Integumentary History of Skin or Integumenta: No Blood Transfusions History of Blood Disorders: No Family Medical History Significant Family History: No Pertinent Family Hx Review of Systems-General Constitutional: no symptoms reported Respiratory: short of breath Cardiovascular: no symptoms reported Gastrointestinal: see HPI, abdominal pain, diarrhea; No nausea, No vomiting Musculoskeletal: no symptoms reported Skin: no symptoms reported Psychiatric/Neurological: No Symptoms Reported Physical Exam-General Problems Physical Exam Vital Signs Vital Signs - First Documented 02/09/18 02/09/18 14:20 17:50 Temp 97.5 Pulse 81 Resp 18 B/P (MAP) 152/107 (122) Pulse Ox 96 O2 Delivery Room Air Capillary Refill : Less Than 3 Seconds General Appearance: WD/WN, no apparent distress Eyes: Bilateral Eye PERRL HEENT: PERRL/EOMI Neck: non-tender, full range of motion, supple Respiratory: normal breath sounds, no respiratory distress Cardiovascular: regular rate, rhythm Gastrointestinal: other (palpable RUQ mass. mild TTP. midline hernia vs diastasis ) Back: no CVA tenderness Extremities: normal range of motion Neurologic/Psychiatric: alert, normal mood/affect, oriented x 3 Skin: warm/dry Lymphatic: no adenopathy Data Review Labs Laboratory Tests 02/09/18 14:25: White Blood Count 5.4, Red Blood Count 4.74, Hemoglobin 14.5, Hematocrit 43, Mean Corpuscular Volume 90, Mean Corpuscular Hemoglobin 31, Mean Corpuscular Hemoglobin Concent 34, Red Cell Distribution Width 14.2, Platelet Count 111L, Mean Platelet Volume 10.6H, Neutrophils (%) (Auto) 74, Lymphocytes (%) (Auto) 16 , Monocytes (%) (Auto) 6, Eosinophils (%) (Auto) 3, Basophils (%) (Auto) 1, Neutrophils # (Auto) 3.9, Lymphocytes # (Auto) 0.9L, Monocytes # (Auto) 0.3, Eosinophils # (Auto) 0.2, Basophils # (Auto) 0.0, Prothrombin Time 13.1, INR Comment 1.0, Activated Partial Thromboplast Time 29, Sodium Level 136, Potassium Level 4.5, Chloride Level 106, Carbon Dioxide Level 22, Anion Gap 8, Blood Urea Nitrogen 22H, Creatinine 1.40H, Estimat Glomerular Filtration Rate 50 , BUN/Creatinine Ratio 16, Glucose Level 214H, Calcium Level 9.1, Corrected Calcium 9.6, Magnesium Level 1.7L, Total Bilirubin 0.8, Aspartate Amino Transf ( AST/SGOT) 61H, Alanine Aminotransferase (ALT/SGPT) 44, Alkaline Phosphatase 264H , Ammonia 48H, B-Type Natriuretic Peptide 151.0H, Total Protein 7.4, Albumin 3.4 02/09/18 15:04: Lactic Acid Level 0.89 02/09/18 16:00: Urine Color YELLOW, Urine Clarity SLIGHTLY CLOUDY, Urine pH 6, Urine Specific [place] 1.015L, Urine Protein 3+H, Urine Glucose (UA) NEGATIVE, Urine Ketones NEGATIVE, Urine Nitrite NEGATIVE, Urine Bilirubin NEGATIVE, Urine Urobilinogen 1 , Urine Leukocyte Esterase NEGATIVE, Urine RBC (Auto) 3+H, Urine RBC 2-5H, Urine WBC NONE, Urine Crystals NONE, Urine Bacteria NEGATIVE, Urine Casts NONE, Urine Mucus NEGATIVE, Urine Culture Indicated NO 02/09/18 19:18: Glucometer 195H Assessment/Plan Assessment/Plan Assessment/Plan Liver mass Right lobe concerning for hepatocellular carcinoma Abdominal pain - right upper quadrant cholelithiasis Ascites - minimal Cirrhosis pulmonary nodules - possible metastatic disease mild emphysematous disease Hep C - treated? diarrhea history of left nephrectomy monitor ascites MRI in AM, may need IR Bx of liver mass Stool culture/studies Cholelithiasis - dont feel that this is symptomatic No surgical intervention at this time await results Will follow Physician Assessment Physician Assessment Scribed by Akash Mendes MS3 for Dr Cochran Clinical Quality Measures DVT/VTE Risk/Contraindication: Risk Factor Score Per Nursin RFS Level Per Nursing on Admit: 3=High JAYDE MENDES MEDICAL STUDENT Feb 09, 2018 21:47 SAMIR COCHRAN DO Feb 09, 2018 22:45
[2018-02-10] VITALS (7 sets, daily range): BP systolic 140–174; BP diastolic 66–91
[2018-02-10] MEDS: fentaNYL INJECTION 100 MCG/2 ML AMP IVP PRN ×2 (04:02→09:26)
[2018-02-10] MEDS: inSUlin ASPART (NovoLOG) 1 UNIT/0.01 ML (CHARGE PER UNIT) SC SCH ×4 (05:37→19:56)
[2018-02-10 06:33] LABS: BASOPHILS % (AUTO) 0 % (0-10); EOSINOPHILS # (AUTO) 0.2 10^3/uL (0.0-0.3); EOSINOPHILS % (AUTO) 3 % (0-10); HEMATOCRIT 42 % (40-54); HEMOGLOBIN 13.8 G/DL (13.3-17.7); LYMPHOCYTES # (AUTO) 1.1 X 10^3 (1.0-4.0); LYMPHOCYTES % (AUTO) 21 % (12-44); MEAN CORPUSCULAR HEMOGLOBIN 30 PG (25-34); MEAN CORPUSCULAR HGB CONC 33 G/DL (32-36); MEAN CORPUSCULAR VOLUME 91 FL (80-99); MEAN PLATELET VOLUME 9.9 FL (7.4-10.4); MONOCYTES # (AUTO) 0.4 X 10^3 (0.0-1.0); MONOCYTES % (AUTO) 7 % (0-12); NEUTROPHILS # (AUTO) 3.6 X 10^3 (1.8-7.8); NEUTROPHILS % (AUTO) 69 % (42-75); PLATELET COUNT 107 10^3/uL (130-400); RED BLOOD COUNT 4.59 10^6/uL (4.35-5.85); RED CELL DISTRIBUTION WIDTH 14.1 % (10.0-14.5); WHITE BLOOD COUNT 5.1 10^3/uL (4.3-11.0)
[2018-02-10 06:55] LABS: ALBUMIN 3.1 GM/DL (3.2-4.5); BILIRUBIN,TOTAL 1.2 MG/DL (0.1-1.0); CREATININE SERUM 1.26 MG/DL (0.60-1.30); POTASSIUM 4.4 MMOL/L (3.6-5.0); TOTAL PROTEIN 7.3 GM/DL (6.4-8.2)
[2018-02-10] MEDS: lisINopril 10 MG (PRINIVIL) TABLET PO SCH (09:03)
[2018-02-10] MEDS ORDERED: FLU QUADRIvalent (5+ YOA) 2018-2019 (AFLURIA) 0.5 ML IM ONE (09:13)
[2018-02-10] MEDS ORDERED: PANT40TA3 PO (09:13)
--- NOTE | 2018-02-10 09:19 | Progress Note ---
Subjective Date Seen by a Provider: Feb 10, 2018 Time Seen by a Provider: 07:15 Subjective/Events-last exam Pt states he has not had any diarrhea since being in the hospital. Pt states he is still having upper abdominal pain. No new complaints. MRI today. Denies any N/V, fever, CP, SOB. Focused Exam Lactate Level 02/09/18 15:04: Lactic Acid Level 0.89 Objective Exam Vital Signs Date Time Temp Pulse Resp B/P (MAP) Pulse Ox O2 Delivery O2 Flow Rate FiO2 02/10/18 08:55 97.2 70 19 174/82 (112) 95 Room Air 02/10/18 04:01 98.2 75 19 156/78 (104) 98 Room Air 02/10/18 00:01 97.8 72 19 165/84 (111) 97 Room Air 02/09/18 20:15 98.0 72 18 179/86 (117) 95 Room Air 02/09/18 20:00 Room Air 02/09/18 18:35 195/92 (126) 02/09/18 17:50 97 Room Air 02/09/18 17:00 72 18 122/88 (99) 96 02/09/18 14:20 97.5 81 18 152/107 (122) 96 I & O 02/10/18 07:00 Intake Total 1060 ml Balance 1060 ml Capillary Refill : Less Than 3 Seconds General Appearance: No Apparent Distress, WD/WN HEENT: PERRL/EOMI Neck: Full Range of Motion, Normal Inspection Respiratory: No Accessory Muscle Use Cardiovascular: Regular Rate, Rhythm Peripheral Pulses: 2+ Dorsalis Pedis (R), 2+ Left Dors-Pedis (L), 2+ Radial Pulses (R), 2+ Radial Pulses (L) Gastrointestinal: other (palpable RUQ mass. mild TTP. midline hernia vs diastasis ) Extremity: Normal Range of Motion Neurologic/Psychiatric: Alert, Oriented x3 Skin: Warm/Dry Results Lab Laboratory Tests 02/09/18 14:25: White Blood Count 5.4, Red Blood Count 4.74, Hemoglobin 14.5, Hematocrit 43, Mean Corpuscular Volume 90, Mean Corpuscular Hemoglobin 31, Mean Corpuscular Hemoglobin Concent 34, Red Cell Distribution Width 14.2, Platelet Count 111L, Mean Platelet Volume 10.6H, Neutrophils (%) (Auto) 74, Lymphocytes (%) (Auto) 16 , Monocytes (%) (Auto) 6, Eosinophils (%) (Auto) 3, Basophils (%) (Auto) 1, Neutrophils # (Auto) 3.9, Lymphocytes # (Auto) 0.9L, Monocytes # (Auto) 0.3, Eosinophils # (Auto) 0.2, Basophils # (Auto) 0.0, Prothrombin Time 13.1, INR Comment 1.0, Activated Partial Thromboplast Time 29, Sodium Level 136, Potassium Level 4.5, Chloride Level 106, Carbon Dioxide Level 22, Anion Gap 8, Blood Urea Nitrogen 22H, Creatinine 1.40H, Estimat Glomerular Filtration Rate 50 , BUN/Creatinine Ratio 16, Glucose Level 214H, Calcium Level 9.1, Corrected Calcium 9.6, Magnesium Level 1.7L, Total Bilirubin 0.8, Aspartate Amino Transf ( AST/SGOT) 61H, Alanine Aminotransferase (ALT/SGPT) 44, Alkaline Phosphatase 264H , Ammonia 48H, B-Type Natriuretic Peptide 151.0H, Total Protein 7.4, Albumin 3.4 02/09/18 15:04: Lactic Acid Level 0.89 02/09/18 16:00: Urine Color YELLOW, Urine Clarity SLIGHTLY CLOUDY, Urine pH 6, Urine Specific [place] 1.015L, Urine Protein 3+H, Urine Glucose (UA) NEGATIVE, Urine Ketones NEGATIVE, Urine Nitrite NEGATIVE, Urine Bilirubin NEGATIVE, Urine Urobilinogen 1 , Urine Leukocyte Esterase NEGATIVE, Urine RBC (Auto) 3+H, Urine RBC 2-5H, Urine WBC NONE, Urine Crystals NONE, Urine Bacteria NEGATIVE, Urine Casts NONE, Urine Mucus NEGATIVE, Urine Culture Indicated NO 02/09/18 19:18: Glucometer 195H 02/10/18 05:34: Glucometer 111H 02/10/18 06:15: White Blood Count 5.1, Red Blood Count 4.59, Hemoglobin 13.8, Hematocrit 42, Mean Corpuscular Volume 91, Mean Corpuscular Hemoglobin 30, Mean Corpuscular Hemoglobin Concent 33, Red Cell Distribution Width 14.1, Platelet Count 107L, Mean Platelet Volume 9.9, Neutrophils (%) (Auto) 69, Lymphocytes (%) (Auto) 21, Monocytes (%) (Auto) 7, Eosinophils (%) (Auto) 3, Basophils (%) (Auto) 0, Neutrophils # (Auto) 3.6, Lymphocytes # (Auto) 1.1, Monocytes # (Auto) 0.4, Eosinophils # (Auto) 0.2, Basophils # (Auto) 0.0, Sodium Level 137, Potassium Level 4.4, Chloride Level 106, Carbon Dioxide Level 22, Anion Gap 9, Blood Urea Nitrogen 19H, Creatinine 1.26, Estimat Glomerular Filtration Rate 57, BUN/ Creatinine Ratio 15, Glucose Level 115H, Calcium Level 9.0, Corrected Calcium 9.7, Total Bilirubin 1.2H, Aspartate Amino Transf (AST/SGOT) 61H, Alanine Aminotransferase (ALT/SGPT) 41, Alkaline Phosphatase 228H, Total Protein 7.3, Albumin 3.1L Assessment/Plan Assessment/Plan Assessment/Plan Liver mass Right lobe concerning for hepatocellular carcinoma Abdominal pain - right upper quadrant cholelithiasis Ascites - minimal Cirrhosis pulmonary nodules - possible metastatic disease mild emphysematous disease Hep C - treated? diarrhea history of left nephrectomy monitor ascites MRI today, may need IR Bx of liver mass Stool culture/studies pending Cholelithiasis - dont feel that this is symptomatic No surgical intervention at this time await results of stool studies Will sign off at this time. Call if needed. Clinical Quality Measures DVT/VTE Risk/Contraindication: Risk Factor Score Per Nursin RFS Level Per Nursing on Admit: 3=High Physician Assessment Physician Assessment Scribed by Akash Henriquez MS3 for JAYDE Cantrell MEDICAL STUDENT Feb 10, 2018 09:19 SAMIR COCHRAN DO Feb 10, 2018 13:52
--- NOTE | 2018-02-10 10:16 | Diagnostic Imaging Report ---
PROCEDURE: MR imaging abdomen without contrast. TECHNIQUE: Multiplanar, multisequence MR imaging of the abdomen was performed without contrast. INDICATION: Abdominal pain. There are no previous chest examinations. MRI abdomen exam of 10/30/2015 noted a mass along the superior pole of the left kidney reported, in the interval since the prior exam the patient has had a diagnosis of renal cell carcinoma established and the patient has undergone left nephrectomy. The CT chest abdomen and pelvis exam performed on 02/09/2018 did reveal the left kidney was surgically absent. There was no sign of a mass in the left renal fossa but there was a sizable 6.6 x 9.2 x 10.8 cm area of altered density within the right lobe of the liver. The patient does have a diagnosis of cirrhosis and the possibly that this area of altered density was related to a primary hepatocellular carcinoma was raised. On this study the area in question is again identified and does not appear to have changed significantly. This finding was not present on the prior MRI exam and consequently should be considered neoplastic until proven otherwise. A CT or also ultrasound-guided biopsy could be performed although there is a small amount of ascites present. The splenomegaly noted previously is again evident. The spleen does measure somewhat larger than on the prior MRI exam. The spleen enlargement be 16.3 cm as opposed to 15.8 CM on the prior exam. The right kidney, right adrenal gland, aorta and inferior vena cava and pancreas are unremarkable for an acute abnormality. The cholelithiasis noted on the CT abdomen/pelvis exam is not well appreciated on this study. There is some fluid about the gallbladder fossa. Whether this is related to the ascites or to acute cholecystitis is not certain. The gallbladder wall does not seem to be abnormally thickened however. The stomach is not well-distended and consequently difficult to assess. The pulmonary nodules involving the lung bases seen on the CT exam are difficult to appreciate on this study. IMPRESSION: 1. There is a sizable area of altered signal involving much of the right lobe of the liver. This finding was not present on the previous MRI abdomen exam of 10/30/2015 and consequently should be considered neoplastic until proven otherwise. 2. There is cirrhosis and splenomegaly. 3. The left kidney is surgically absent. 4. The fluid about the gallbladder is of uncertain etiology. Whether this is related to the ascites or to acute cholecystitis is not certain. The gallbladder wall does not seem to be significantly thickened however These results were discussed with Dr. Vidhi Williamson. Dictated by: Dictated on workstation # [id number]
[2018-02-10] MEDS ORDERED: RT-ALBUTEROL SULF 2.5 MG/3 ML PRE-MIX VIAL INH PRN ×2 (11:45→14:30)
[2018-02-10] MEDS ORDERED: OXYC-529 PO (12:12)
[2018-02-10] MEDS: SIMETHICONE 80 MG (MYLICON) CHEW PO SCH ×3 (12:50→20:20)
--- NOTE | 2018-02-10 14:00 | History & Physicial (CHS) ---
HPI History of Present Illness: 72 yo male presented to walk-in clinic at [facility] with 3 month history of worsening abdominal pain and distension and 2-3 weeks of diarrhea. He was sent to ER due to marked distension and concern for significant dehydration. He states he has had shortness of breath due to his distension, especially when bending over. He denies fever. He denies vomiting. He has a history of cirrhosis secondary to hepatitis C (which he reports was treated a few years ago and that he had follow up negative viral load). He also has history of renal cell carcinoma s/p left nephrectomy. He has not had any bowel movements since admission and feels a little better with the IV pain medication. Date seen by provider: Feb 10, 2018 Time Seen by Provider: 10:35 Attending Physician Kamila Williamson MD PCP Lorena Bassett DO Consult Date of Admission Feb 09, 2018 at 5:02 pm Home Medications Home Medications Reviewed patient Home Medication Reconciliation performed by pharmacy medication reconciliations fuel cell battery technician and/or nursing. Patients Allergies have been reviewed. Allergies Coded Allergies: meperidine (Unverified Allergy, Intermediate, HIVES, 04/22/15) codeine (Unverified Adverse Reaction, Mild, NAUSEA, 04/22/15) [id number] Hx Patient Social History Alcohol Use: Denies Use Recreational Drug Use: No Smoking Status: Former Smoker Type Used: Cigarettes Recent Foreign Travel: No Contact w/other who traveled: No Recent Hopitalizations: No Recent Infectious Disease Expo: No Physical Abuse Screen: No Sexual Abuse: No Past Medical History PMHx: Cirrhosis secondary to Hep C HTN Renal cell carcinoma DMII COPD CKD stage 3 Peripheral neuropathy PSurgHx: Left nephrectomy Hernia repair Family Medical History Significant Family History: No Pertinent Family Hx Review of Systems ([facility]) Constitutional: No fever; malaise EENTM: no symptoms reported Respiratory: cough (when smoking) Cardiovascular: No chest pain Gastrointestinal: see HPI, diarrhea Genitourinary: no symptoms reported Musculoskeletal: no symptoms reported Skin: no symptoms reported Psychiatric/Neurological: No Symptoms Reported Reviewed Test Results Reviewed Test Results Lab Laboratory Tests Test 02/09/18 14:25 02/09/18 15:04 02/09/18 16:00 02/09/18 19:18 Range/Units White Blood Count 5.4 4.3-11.0 10^3/uL Red Blood Count 4.74 4.35-5.85 10^6/uL Hemoglobin 14.5 13.3-17.7 G/DL Hematocrit 43 40-54 % Mean Corpuscular Volume 90 80-99 FL Mean Corpuscular Hemoglobin 31 25-34 PG Mean Corpuscular Hemoglobin Concent 34 32-36 G/DL Red Cell Distribution Width 14.2 10.0-14.5 % Platelet Count 111 L 130-400 10^3/uL Mean Platelet Volume 10.6 H 7.4-10.4 FL Neutrophils (%) (Auto) 74 42-75 % Lymphocytes (%) (Auto) 16 12-44 % Monocytes (%) (Auto) 6 0-12 % Eosinophils (%) (Auto) 3 0-10 % Basophils (%) (Auto) 1 0-10 % Neutrophils # (Auto) 3.9 1.8-7.8 X 10^3 Lymphocytes # (Auto) 0.9 L 1.0-4.0 X 10^3 Monocytes # (Auto) 0.3 0.0-1.0 X 10^3 Eosinophils # (Auto) 0.2 0.0-0.3 10^3/uL Basophils # (Auto) 0.0 0.0-0.1 10^3/uL Prothrombin Time 13.1 12.2-14.7 SEC INR Comment 1.0 0.8-1.4 Activated Partial Thromboplast Time 29 24-35 SEC Sodium Level 136 135-145 MMOL/L Potassium Level 4.5 3.6-5.0 MMOL/L Chloride Level 106 98-107 MMOL/L Carbon Dioxide Level 22 21-32 MMOL/L Anion Gap 8 5-14 MMOL/L Blood Urea Nitrogen 22 H 7-18 MG/DL Creatinine 1.40 H 0.60-1.30 MG/DL Estimat Glomerular Filtration Rate 50 BUN/Creatinine Ratio 16 Glucose Level 214 H 70-105 MG/DL Calcium Level 9.1 8.5-10.1 MG/DL Corrected Calcium 9.6 8.5-10.1 MG/DL Magnesium Level 1.7 L 1.8-2.4 MG/DL Total Bilirubin 0.8 0.1-1.0 MG/DL Aspartate Amino Transf (AST/SGOT) 61 H 5-34 U/L Alanine Aminotransferase (ALT/SGPT) 44 0-55 U/L Alkaline Phosphatase 264 H 40-136 U/L Ammonia 48 H 11-32 UMOL/L B-Type Natriuretic Peptide 151.0 H <100.0 PG/ML Total Protein 7.4 6.4-8.2 GM/DL Albumin 3.4 3.2-4.5 GM/DL Lactic Acid Level 0.89 0.50-2.00 MMOL/L Urine Color YELLOW Urine Clarity SLIGHTLY CLOUDY Urine pH 6 5-9 Urine Specific [place] 1.015 L 1.016-1.022 Urine Protein 3+ H NEGATIVE Urine Glucose (UA) NEGATIVE NEGATIVE Urine Ketones NEGATIVE NEGATIVE Urine Nitrite NEGATIVE NEGATIVE Urine Bilirubin NEGATIVE NEGATIVE Urine Urobilinogen 1 NORMAL MG/DL Urine Leukocyte Esterase NEGATIVE NEGATIVE Urine RBC (Auto) 3+ H NEGATIVE Urine RBC 2-5 H /HPF Urine WBC NONE /HPF Urine Crystals NONE /LPF Urine Bacteria NEGATIVE /HPF Urine Casts NONE /LPF Urine Mucus NEGATIVE /LPF Urine Culture Indicated NO Glucometer 195 H 70-110 MG/DL Test 02/10/18 05:34 02/10/18 06:15 02/10/18 10:47 Range/Units Glucometer 111 H 142 H 70-110 MG/DL White Blood Count 5.1 4.3-11.0 10^3/uL Red Blood Count 4.59 4.35-5.85 10^6/uL Hemoglobin 13.8 13.3-17.7 G/DL Hematocrit 42 40-54 % Mean Corpuscular Volume 91 80-99 FL Mean Corpuscular Hemoglobin 30 25-34 PG Mean Corpuscular Hemoglobin Concent 33 32-36 G/DL Red Cell Distribution Width 14.1 10.0-14.5 % Platelet Count 107 L 130-400 10^3/uL Mean Platelet Volume 9.9 7.4-10.4 FL Neutrophils (%) (Auto) 69 42-75 % Lymphocytes (%) (Auto) 21 12-44 % Monocytes (%) (Auto) 7 0-12 % Eosinophils (%) (Auto) 3 0-10 % Basophils (%) (Auto) 0 0-10 % Neutrophils # (Auto) 3.6 1.8-7.8 X 10^3 Lymphocytes # (Auto) 1.1 1.0-4.0 X 10^3 Monocytes # (Auto) 0.4 0.0-1.0 X 10^3 Eosinophils # (Auto) 0.2 0.0-0.3 10^3/uL Basophils # (Auto) 0.0 0.0-0.1 10^3/uL Sodium Level 137 135-145 MMOL/L Potassium Level 4.4 3.6-5.0 MMOL/L Chloride Level 106 98-107 MMOL/L Carbon Dioxide Level 22 21-32 MMOL/L Anion Gap 9 5-14 MMOL/L Blood Urea Nitrogen 19 H 7-18 MG/DL Creatinine 1.26 0.60-1.30 MG/DL Estimat Glomerular Filtration Rate 57 BUN/Creatinine Ratio 15 Glucose Level 115 H 70-105 MG/DL Calcium Level 9.0 8.5-10.1 MG/DL Corrected Calcium 9.7 8.5-10.1 MG/DL Total Bilirubin 1.2 H 0.1-1.0 MG/DL Aspartate Amino Transf (AST/SGOT) 61 H 5-34 U/L Alanine Aminotransferase (ALT/SGPT) 41 0-55 U/L Alkaline Phosphatase 228 H 40-136 U/L Total Protein 7.3 6.4-8.2 GM/DL Albumin 3.1 L 3.2-4.5 GM/DL Radiology CT chest/abd/pelvis 02/09: IMPRESSION: 1. Hepatic cirrhosis with sequela of portal venous hypertension including mild abdominopelvic ascites and splenomegaly. 2. Subtle area of relative hypoattenuation involving the right lobe of the liver concerning for malignancy. Hepatocellular carcinoma would be of primary concern given the background of cirrhosis. Correlation with postcontrast MRI is recommended additionally, area in question does appear amenable to CT-guided biopsy. 3. Cholelithiasis. 4. Multiple nonobstructive right renal calculi. 5. Advanced calcified aortic, coronary, and arterial atherosclerosis. 6. Multiple pulmonary nodules and micronodules. Given the history of renal cell carcinoma and mass within the liver, findings do raise strong concern for metastatic disease. 7. Background of mild emphysematous disease. MRI abdomen 02/10: DRAFT IMPRESSION: 1. There is a sizable area of altered signal involving much of the right lobe of the liver. This finding was not present on the previous MRI abdomen exam of 10/30/2015 and consequently should be considered neoplastic until proven otherwise. 2. There is cirrhosis and splenomegaly. 3. The left kidney is surgically absent. 4. The fluid about the gallbladder is of uncertain etiology. Whether this is related to the ascites or to acute cholecystitis is not certain. The gallbladder wall does not seem to be significantly thickened however Physical Exam-([facility]) Physical Exam Vital Signs VS - Last 72 Hours, by Label 02/09/18 02/09/18 02/09/18 02/09/18 14:20 17:00 17:50 18:35 Temp 97.5 Pulse 81 72 Resp 18 18 B/P (MAP) 152/107 (122) 122/88 (99) 195/92 (126) Pulse Ox 96 96 97 O2 Delivery Room Air 02/09/18 02/09/18 02/10/18 02/10/18 20:00 20:15 00:01 04:01 Temp 98.0 97.8 98.2 Pulse 72 72 75 Resp 18 19 19 B/P (MAP) 179/86 (117) 165/84 (111) 156/78 (104) Pulse Ox 95 97 98 O2 Delivery Room Air Room Air Room Air Room Air 02/10/18 02/10/18 02/10/18 02/10/18 08:00 08:55 11:29 12:28 Temp 97.2 97.2 Pulse 70 75 69 Resp 19 19 B/P (MAP) 174/82 (112) 157/91 (113) Pulse Ox 95 95 95 O2 Delivery Room Air Room Air Room Air Capillary Refill : Less Than 3 Seconds General Appearance: mild distress Respiratory: lungs clear, normal breath sounds Cardiovascular: regular rate, rhythm, no murmur Gastrointestinal: normal bowel sounds, distended; No tenderness Extremities: no pedal edema Neurologic/Psychiatric: normal mood/affect Skin: warm/dry Assessment/Plan Assessment/Plan Admission Status: Inpatient Order (span 2 midnights) Reason for Inpatient Admission: Severe diarrhea with acute renal insufficiency and severe abdominal distension will likely require hydration and further work-up for more than one night. (1) Liver mass, right lobe Status: Acute Assessment & Plan: Concerning for possible hepatocellular carcinoma in light of cirrhosis, versus possible metastatic disease from history of renal cell carcinoma. Can be biopsied via CT guided biopsy, however will need to schedule with Dr. Alva who will be back on Tuesday, will likely be done outpatient. Oxycodone for pain control- avoid NSAIDs due to renal disease and apap due to liver disease. Discussed with him plan for short term treatment. (2) Ascites Status: Acute Assessment & Plan: Abdomen is markedly distended, but does not appear to be entirely fluid related, imaging shows relatively mild amount and clinical exam not consistent with fluid. May need paracentesis before biopsy, will monitor for now. Qualifiers: Qualified Codes: R18.8 - Other ascites (3) Cirrhosis Status: Chronic Assessment & Plan: Platelets slightly low, INR normal. LFT's somewhat elevated , monitor. Qualifiers: Qualified Codes: K74.69 - Other cirrhosis of liver (4) Hypertension Status: Chronic Assessment & Plan: Resume home lisinopril Qualifiers: Qualified Codes: I10 - Essential (primary) hypertension (5) Diabetes mellitus, type 2 Status: Chronic Assessment & Plan: Hold home oral meds for now given his poor intake and diarrhea. Sliding scale insulin. Qualifiers: (6) Chronic kidney disease, stage 3 Status: Chronic Assessment & Plan: Per clinic record review, appears baseline creatinine around 1.4. Improved creatinine overnight with IVF. (7) COPD (chronic obstructive pulmonary disease) Status: Chronic Assessment & Plan: No evidence of exacerbation at this time. (8) DVT prophylaxis Status: Acute Assessment & Plan: Enoxaparin Clinical Quality Measures DVT/VTE Risk/Contraindication: Risk Factor Score Per Nursin RFS Level Per Nursing on Admit: 3=High Copy Copies To 1: BEAU REHMAN MD,KAMILA Chua MD Feb 10, 2018 2:00 pm
[2018-02-10] MEDS: RT-ALBUTEROL SULF 2.5 MG/3 ML PRE-MIX VIAL INH SCH ×3 (14:25→21:14)
[2018-02-10] MEDS ORDERED: PHARMACY TO DOSE SQ SCH (14:30)
[2018-02-10] MEDS: ENOXAPARIN 40 MG/0.4 ML (LOVENOX) SYR SC SCH (15:22)
[2018-02-10] MEDS: NS IV 1000 ML 1,000 ML IV SCH (17:53)
[2018-02-10] MEDS: RT-ADVAIR HFA 115/21 MCG PER PUFF IH SCH (18:02)
[2018-02-10] MEDS ORDERED: NON-FORMULARY MEDICATION 1 EA EA (Fluticasone/Salmeterol (Advair 250-50 Diskus) 1 PUFF) INH SCH (21:00)
[2018-02-11] VITALS: BP 139/70
[2018-02-11] MEDS: NS IV 1000 ML 1,000 ML IV SCH (02:05)
[2018-02-11] MEDS: RT-ALBUTEROL SULF 2.5 MG/3 ML PRE-MIX VIAL INH SCH ×4 (02:18→14:52)
[2018-02-11] MEDS: inSUlin ASPART (NovoLOG) 1 UNIT/0.01 ML (CHARGE PER UNIT) SC SCH ×3 (05:43→15:23)
[2018-02-11] MEDS: RT-ADVAIR HFA 115/21 MCG PER PUFF IH SCH (06:39)
[2018-02-11] MEDS ORDERED: PANTOPRAZOLE 40 MG (PROTONIX) TAB PO SCH (07:00)
[2018-02-11 08:00] VITALS: BP 115/70
[2018-02-11] MEDS: lisINopril 10 MG (PRINIVIL) TABLET PO SCH (08:57)
[2018-02-11] MEDS: SIMETHICONE 80 MG (MYLICON) CHEW PO SCH ×2 (08:57→13:46)
[2018-02-11] MEDS ORDERED: NON-FORMULARY MEDICATION 1 EA EA (Aspirin (Aspir 81) 81 MG) PO SCH (09:00)
[2018-02-11] MEDS ORDERED: ASPIRIN E.C. 81 MG (ECOTRIN) TAB PO SCH (09:00)
[2018-02-11] MEDS ORDERED: NON-FORMULARY MEDICATION 1 EA EA (Allopurinol 100 MG) PO SCH (09:00)
[2018-02-11] MEDS ORDERED: ALLOPURINOL 100 MG (ZYLOPRIM) TAB PO SCH (09:00)
--- NOTE | 2018-02-11 12:05 | Discharge Summary ---
Diagnosis/Chief Complaint Date of Admission Feb 09, 2018 at 17:02 Date of Discharge 02/11/2018 Admission Diagnosis Admission Diagnosis Abdominal Pain Right Lobe Liver Mass Ascites Cirrhosis HTN NIDDM CKD Stage III COPD h/o Renal Cell Ca Discharge Diagnosis See Above Chief Complaint/HPI Chief Complaint/HPI 72 yo male presented to walk-in clinic at [facility] with 3 month history of worsening abdominal pain and distension and 2-3 weeks of diarrhea. He was sent to ER due to marked distension and concern for significant dehydration. He states he has had shortness of breath due to his distension, especially when bending over. He denies fever. He denies vomiting. He has a history of cirrhosis secondary to hepatitis C (which he reports was treated a few years ago and that he had follow up negative viral load). He also has history of renal cell carcinoma s/p left nephrectomy. He has not had any bowel movements since admission and feels a little better with the IV pain medication. Discharge Summary-Simple/Stand Consultations General Surgery Discharge Physical Examination Allergies: Coded Allergies: meperidine (Unverified Allergy, Intermediate, HIVES, 04/22/15) codeine (Unverified Adverse Reaction, Mild, NAUSEA, 04/22/15) Vitals & I&Os Vital Sign - Last 12Hours Date Time Temp Pulse Resp B/P (MAP) Pulse Ox O2 Delivery O2 Flow Rate FiO2 02/11/18 10:48 92 Room Air 02/11/18 08:00 97.5 80 20 115/70 (85) Intake and Output 02/11/18 00:00 Intake Total 2050 ml Balance 2050 ml General Appearance: Alert, Oriented X3, Cooperative, No Acute Distress HEENT: Mucous Memb Moist/Kevin Respiratory: Normal Air Movement, Other (End Exp Wheezes at the bases, no crackles) Cardiovascular: Regular Rate, No Murmurs Abdominal: Normal Bowel Sounds, Other (Mild abd ttp, firm, no fluid wave) Extremities: No Edema, No Tenderness/Swelling Skin: No Rashes, No Breakdown Neuro: Normal Gait, Normal Speech, Strength at 5/5 X4 Ext, Sensation Intact, Cranial Nerves 3-12 NL Psych/Mental Status: Mental Status NL, Mood NL Hospital Course See final discharge diagnosis. Other pending tests Patient has bx for liver mass set up for next week, make sure to follow pathology Radiology Reviewed CT chest/abd/pelvis 02/09: IMPRESSION: 1. Hepatic cirrhosis with sequela of portal venous hypertension including mild abdominopelvic ascites and splenomegaly. 2. Subtle area of relative hypoattenuation involving the right lobe of the liver concerning for malignancy. Hepatocellular carcinoma would be of primary concern given the background of cirrhosis. Correlation with postcontrast MRI is recommended additionally, area in question does appear amenable to CT-guided biopsy. 3. Cholelithiasis. 4. Multiple nonobstructive right renal calculi. 5. Advanced calcified aortic, coronary, and arterial atherosclerosis. 6. Multiple pulmonary nodules and micronodules. Given the history of renal cell carcinoma and mass within the liver, findings do raise strong concern for metastatic disease. 7. Background of mild emphysematous disease. MRI abdomen 02/10: DRAFT IMPRESSION: 1. There is a sizable area of altered signal involving much of the right lobe of the liver. This finding was not present on the previous MRI abdomen exam of 10/30/2015 and consequently should be considered neoplastic until proven otherwise. 2. There is cirrhosis and splenomegaly. 3. The left kidney is surgically absent. 4. The fluid about the gallbladder is of uncertain etiology. Whether this is related to the ascites or to acute cholecystitis is not certain. The gallbladder wall does not seem to be significantly thickened however Discussion & Recommendations 72 yo M that presented to ER with worsening abdominal pain and increasing abdominal distention. CT of abdomen reveal right lobe new liver mass with Cirrhosis and mild ascites which is all new symptoms for patient. Unable to get biopsy while inpatient. He is scheduled for IR assisted bx next week and patient would like to go home prior to procedure. Pain has improved. Patient was sent home on new script for PO opiate pain medication. He was evaluated by surgery and they did not feel that ascites warranted a paracentesis at this time. No signs of acute SBP or need for further IV antibiotic therapy. Patient will need close outpatient follow up to ensure biopsy was performed and that pathology is followed up. Discharge Condition at discharge Guarded Instructions to patient/family Please see electronic discharge instructions given to patient. Discharge Medications Reviewed and agree with Discharge Medication list on patient's Discharge Instruction sheet Clinical Quality Measures DVT/VTE Risk/Contraindication: Risk Factor Score Per Nursin RFS Level Per Nursing on Admit: 3=High Copy Copies To 1: GUSTAVO HUANG MD; BEAU REHMAN MD, HOLLY R MD Feb 11, 2018 12:05
--- NOTE | 2018-02-11 12:07 | Discharge Instructions ---
KAMILA TSANG MD 02/10/18 1214: Discharge [facility] Discharge Medications New, Converted or Re-Newed RX: RX on Chart New Medications: Oxycodone HCl (Oxycodone HCl) 5 Mg Tablet 5 MG PO Q6H PRN for PAIN-SEVERE, #30 TAB 0 Refills Continued Medications: Albuterol Sulfate (Ventolin Hfa) 18 Gm Hfa.aer.ad 2 PUFF INH Q6H PRN for SHORTNESS OF BREATH, INHALER Allopurinol (Allopurinol) 100 Mg Tablet 100 MG PO DAILY, TAB Aspirin (Aspir 81) 81 Mg Tablet.dr 81 MG PO DAILY, TAB Cholecalciferol (Vitamin D) 5,000 Unit Capsule 5000 UNITS PO DAILY, CAP Fluticasone/Salmeterol (Advair 250-50 Diskus) 1 Each Blst.w.dev 1 PUFF INH BID, INHALER Glipizide (Glipizide ER) 5 Mg Tab.er.24 5 MG PO DAILY, TAB Lisinopril (Lisinopril) 10 Mg Tablet 10 MG PO DAILY, TAB Pantoprazole Sodium (Pantoprazole Sodium) 40 Mg Tablet.dr 40 MG PO DAILY, TAB Pioglitazone HCl (Pioglitazone HCl) 15 Mg Tablet 15 MG PO DAILY, TAB Simvastatin (Simvastatin) 40 Mg Tablet 40 MG PO DAILY, TAB Patient Instructions Goal/Follow Up Appt: Follow up on 02/14 at 10:[address] Johnson at [facility]. Return to The Hospital For: Fever, uncontrolled pain, inability to keep down liquids Activity & Diet Discharge Diet: Eat Small Frequent Meals, ADA Diet Activity as Tolerated: Yes Orders-Post D/C & Referrals Pneu Vac Indicated: Yes Copy Copies To 1: BEAU JOHNSON MD, HOLLY R MD 02/11/18 1207: Discharge [facility] Discharge Medications New, Converted or Re-Newed RX: RX on Chart New Medications: Oxycodone HCl (Oxycodone HCl) 5 Mg Tablet 5 MG PO Q6H PRN for PAIN-SEVERE, #30 TAB 0 Refills Continued Medications: Albuterol Sulfate (Ventolin Hfa) 18 Gm Hfa.aer.ad 2 PUFF INH Q6H PRN for SHORTNESS OF BREATH, INHALER Allopurinol (Allopurinol) 100 Mg Tablet 100 MG PO DAILY, TAB Aspirin (Aspir 81) 81 Mg Tablet.dr 81 MG PO DAILY, TAB Cholecalciferol (Vitamin D) 5,000 Unit Capsule 5000 UNITS PO DAILY, CAP Fluticasone/Salmeterol (Advair 250-50 Diskus) 1 Each Blst.w.dev 1 PUFF INH BID, INHALER Glipizide (Glipizide ER) 5 Mg Tab.er.24 5 MG PO DAILY, TAB Lisinopril (Lisinopril) 10 Mg Tablet 10 MG PO DAILY, TAB Pantoprazole Sodium (Pantoprazole Sodium) 40 Mg Tablet.dr 40 MG PO DAILY, TAB Pioglitazone HCl (Pioglitazone HCl) 15 Mg Tablet 15 MG PO DAILY, TAB Simvastatin (Simvastatin) 40 Mg Tablet 40 MG PO DAILY, TAB Orders-Post D/C & Referrals CT guided Bx of Liver mass KAMILA TSANG MD Feb 10, 2018 12:14 GUSTAVO HUANG MD Feb 11, 2018 12:07
[2018-02-11] MEDS: ENOXAPARIN 40 MG/0.4 ML (LOVENOX) SYR SC SCH (15:23)
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
--- OUTSIDE RECORDS SUMMARY | 2018-02-20 11:40 | XMS REPORT | Continuity of Care Document ---
Author Author [facility] Address Unknown Phone Unavailable Allergies Active Description Code Type Severity Reaction Onset Reported/Identified Relationship to Patient Clinical Status Yes codeine [id number] Drug Allergy Mild NAUSEA 04/22/2015 Yes meperidine [id number] Drug Allergy Moderate HIVES 04/22/2015 Medications There [...] PASTORA K 690.10 SEBORRHEIC DERMATITIS UNSPECIFIED 04/24/2013 SAALZAR DO, PASTORA K 709.9 UNSPECIFIED DISORDER OF [...] DISORDER OF SKIN AND SUBCUTANEOUS TISSUE 04/24/2013 SALAZRA DO, PASTORA K 070.54 CHRONIC HEPATITIS C [...] K 702.0 ACTINIC KERATOSIS 11/26/2014 TERESA JOHNSON GEAR DESIGN ENGINEER Ot 789.09 12/26/2014 TERESA JOHNSON GEAR DESIGN ENGINEER Ot 789.09 04/22/2015 SAMIR COCHRAN DO Ot E11.9 TYPE 2 DIABETES MELLITUS WITHOUT COMPLIC 04/22/2015 SAMIR COCHRAN DO Ot I85.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 04/22/2015 SAMIR COCHRAN DO Ot K29.70 GASTRITIS, UNSPECIFIED, WITHOUT BLEEDING 04/22/2015 SAMIR COCHRAN DO Ot R19.5 OTHER FECAL ABNORMALITIES 10/27/2015 RIANNA BRADY GEAR DESIGN ENGINEER Ot M47.26 OTHER SPONDYLOSIS WITH RADICULOPATHY, MOIRA 10/27/2015 RIANNA BRADY GEAR DESIGN ENGINEER Ot M47.26 OTHER SPONDYLOSIS WITH RADICULOPATHY, MOIRA 10/28/2015 TERESA JOHNSON GEAR DESIGN ENGINEER Ot 789.09 ABDOMINAL PAIN, OTHER SPECIFIED SITE 10/28/2015 SAMIR COCHRAN DO Ot Z01.818 ENCOUNTER FOR OTHER PREPROCEDURAL EXAMIN 10/28/2015 RIANNA BRADY R GEAR DESIGN ENGINEER Ot M47.26 OTHER SPONDYLOSIS WITH RADICULOPATHY, MOIRA 10/29/2015 RIANNA BRADY GEAR DESIGN ENGINEER Ot I86.8 VARICOSE VEINS OF OTHER SPECIFIED SITES 10/29/2015 RIANNA BRADY GEAR DESIGN ENGINEER Ot K74.60 UNSPECIFIED CIRRHOSIS OF LIVER 10/29/2015 RIANNA BRADY R GEAR DESIGN ENGINEER Ot N28.89 OTHER SPECIFIED DISORDERS OF KIDNEY AND 10/29/2015 RIANNA BRADY R GEAR DESIGN ENGINEER Ot R16.0 HEPATOMEGALY, NOT ELSEWHERE CLASSIFIED 10/29/2015 RIANNA BRADY R GEAR DESIGN ENGINEER Ot R16.1 SPLENOMEGALY, NOT ELSEWHERE CLASSIFIED 10/31/2015 RIANNA BRADY GEAR DESIGN ENGINEER Ot K74.60 UNSPECIFIED CIRRHOSIS OF LIVER 10/31/2015 RIANNA BRADY GEAR DESIGN ENGINEER Ot N28.89 OTHER SPECIFIED DISORDERS OF KIDNEY AND 11/05/2015 RIANNA BRADY R GEAR DESIGN ENGINEER Ot K74.60 UNSPECIFIED CIRRHOSIS OF LIVER 11/05/2015 RIANNA BRADY R GEAR DESIGN ENGINEER Ot N28.89 OTHER SPECIFIED DISORDERS OF KIDNEY AND 11/13/2015 RIANNA BRADY R GEAR DESIGN ENGINEER Ot M47.26 OTHER SPONDYLOSIS WITH RADICULOPATHY, 11/20/2015 RIANNA BRADY GEAR DESIGN ENGINEER Ot I86.8 VARICOSE VEINS OF OTHER SPECIFIED SITES 11/20/2015 RIANNA BRADY GEAR DESIGN ENGINEER Ot K74.60 UNSPECIFIED CIRRHOSIS OF LIVER 11/20/2015 RIANNA BRADY R GEAR DESIGN ENGINEER Ot N28.89 OTHER SPECIFIED DISORDERS OF KIDNEY AND 11/20/2015 RIANNA BRADY GEAR DESIGN ENGINEER Ot R16.0 HEPATOMEGALY, NOT ELSEWHERE CLASSIFIED 11/20/2015 RIANNA BRADY GEAR DESIGN ENGINEER Ot R16.1 SPLENOMEGALY, NOT ELSEWHERE CLASSIFIED 11/20/2015 RIANNA BRADY R GEAR DESIGN ENGINEER Ot K74.60 UNSPECIFIED CIRRHOSIS OF LIVER 11/20/2015 RIANNA BRADY R GEAR DESIGN ENGINEER Ot N28.89 OTHER SPECIFIED DISORDERS OF KIDNEY AND 12/05/2015 RIANNA BRADY R GEAR DESIGN ENGINEER Ot M47.26 OTHER SPONDYLOSIS WITH RADICULOPATHY, MOIRA 12/05/2015 RIANNA BRADY R GEAR DESIGN ENGINEER Ot I86.8 VARICOSE VEINS OF OTHER SPECIFIED SITES 12/05/2015 VANE BRADYELE R GEAR DESIGN ENGINEER Ot K74.60 UNSPECIFIED CIRRHOSIS OF LIVER 12/05/2015 BRADY, RIANNA R GEAR DESIGN ENGINEER Ot N28.89 OTHER SPECIFIED DISORDERS OF KIDNEY AND 12/05/2015 CAITLYN RIANNA R GEAR DESIGN ENGINEER Ot R16.0 HEPATOMEGALY, NOT ELSEWHERE CLASSIFIED 12/05/2015 BRADYVANE FajardoELE R GEAR DESIGN ENGINEER Ot R16.1 SPLENOMEGALY, NOT ELSEWHERE CLASSIFIED 12/05/2015 BRADY RIANNA R GEAR DESIGN ENGINEER Ot K74.60 UNSPECIFIED CIRRHOSIS OF LIVER 12/05/2015 VANE BRADYELE R GEAR DESIGN ENGINEER Ot N28.89 OTHER SPECIFIED DISORDERS OF KIDNEY AND 09/17/2016 TERESA JOHNSON GEAR DESIGN ENGINEER Ot 789.09 ABDOMINAL PAIN, OTHER SPECIFIED SITE 09/17/2016 HOUSTON DO, SAMIR D Ot Z01.818 ENCOUNTER FOR OTHER PREPROCEDURAL EXAMIN 09/17/2016 RIANNA BRADY R GEAR DESIGN ENGINEER Ot M47.26 OTHER SPONDYLOSIS WITH RADICULOPATHY, MOIRA 09/17/2016 CAITLYN RIANNA R GEAR DESIGN ENGINEER Ot I86.8 VARICOSE VEINS OF OTHER SPECIFIED SITES 09/17/2016 RIANNA BRADY R GEAR DESIGN ENGINEER Ot K74.60 UNSPECIFIED CIRRHOSIS OF LIVER 09/17/2016 CAITLYN RIANNA R GEAR DESIGN ENGINEER Ot N28.89 OTHER SPECIFIED DISORDERS OF KIDNEY AND 09/17/2016 BRADY, RIANNA R GEAR DESIGN ENGINEER Ot R16.0 HEPATOMEGALY, NOT ELSEWHERE CLASSIFIED 09/17/2016 VANE BRADYELE R GEAR DESIGN ENGINEER Ot R16.1 SPLENOMEGALY, NOT ELSEWHERE CLASSIFIED 09/17/2016 BRADY, RIANNA R GEAR DESIGN ENGINEER Ot K74.60 UNSPECIFIED CIRRHOSIS OF LIVER 09/17/2016 VANE BRADYELE R GEAR DESIGN ENGINEER Ot N28.89 OTHER SPECIFIED DISORDERS OF KIDNEY AND 09/20/2016 TERESA JOHNSON GEAR DESIGN ENGINEER Ot 789.09 ABDOMINAL PAIN, OTHER SPECIFIED SITE 09/20/2016 COCHRAN DO, SAMIR D Ot Z01.818 ENCOUNTER FOR OTHER PREPROCEDURAL EXAMIN 09/20/2016 RIANNA BRADY R GEAR DESIGN ENGINEER Ot M47.26 OTHER SPONDYLOSIS WITH RADICULOPATHY, MOIRA 09/20/2016 RIANNA BRADY GEAR DESIGN ENGINEER Ot I86.8 VARICOSE VEINS OF OTHER SPECIFIED SITES 09/20/2016 RIANNA BRADY GEAR DESIGN ENGINEER Ot K74.60 UNSPECIFIED CIRRHOSIS OF LIVER 09/20/2016 RIANNA BRADY GEAR DESIGN ENGINEER Ot N28.89 OTHER SPECIFIED DISORDERS OF KIDNEY AND 09/20/2016 RIANNA BRADY GEAR DESIGN ENGINEER Ot R16.0 HEPATOMEGALY, NOT ELSEWHERE CLASSIFIED 09/20/2016 RIANNA BRADY GEAR DESIGN ENGINEER Ot R16.1 SPLENOMEGALY, NOT ELSEWHERE CLASSIFIED 09/20/2016 RIANNA BRADY GEAR DESIGN ENGINEER Ot K74.60 UNSPECIFIED CIRRHOSIS OF LIVER 09/20/2016 RIANNA BRADY GEAR DESIGN ENGINEER Ot N28.89 OTHER SPECIFIED DISORDERS OF KIDNEY AND 10/13/2016 CANDACE DOWNEY SIEBEL ADMINISTRATOR-C Ot B17.10 ACUTE HEPATITIS C WITHOUT HEPATIC COMA 10/13/2016 CANDACE DOWNEY SIEBEL ADMINISTRATOR-C Ot E11.22 TYPE 2 DIABETES MELLITUS W DIABETIC ENGINEERING DESIGN SUPERVISOR 10/13/2016 CANDACE DOWNEY SIEBEL ADMINISTRATOR-C Ot E78.5 HYPERLIPIDEMIA, UNSPECIFIED 10/13/2016 CANDACE DOWNEY SIEBEL ADMINISTRATOR-C Ot J44.9 CHRONIC OBSTRUCTIVE PULMONARY DISEASE, U 10/13/2016 CANDACE DOWNEY SIEBEL ADMINISTRATOR-C Ot K21.9 GASTRO-ESOPHAGEAL REFLUX DISEASE WITHOUT 10/13/2016 CANDACE DOWNEY SIEBEL ADMINISTRATOR-C Ot N18.3 CHRONIC KIDNEY DISEASE, STAGE 3 (MODERAT 07/22/2017 TERESA JOHNSON GEAR DESIGN ENGINEER Ot 789.09 ABDOMINAL PAIN, OTHER SPECIFIED SITE 07/22/2017 SAMIR COCHRAN DO Ot Z01.818 ENCOUNTER FOR OTHER PREPROCEDURAL EXAMIN 07/22/2017 RIANNA BRADY GEAR DESIGN ENGINEER Ot M47.26 OTHER SPONDYLOSIS WITH RADICULOPATHY, MOIRA 07/22/2017 RIANNA BRADY GEAR DESIGN ENGINEER Ot I86.8 VARICOSE VEINS OF OTHER SPECIFIED SITES 07/22/2017 RIANNA BRADY GEAR DESIGN ENGINEER Ot K74.60 UNSPECIFIED CIRRHOSIS OF LIVER 07/22/2017 RIANNA BRADY GEAR DESIGN ENGINEER Ot N28.89 OTHER SPECIFIED DISORDERS OF KIDNEY AND 07/22/2017 RIANNA BRADY GEAR DESIGN ENGINEER Ot R16.0 HEPATOMEGALY, NOT ELSEWHERE CLASSIFIED 07/22/2017 RIANNA BRADY GEAR DESIGN ENGINEER Ot R16.1 SPLENOMEGALY, NOT ELSEWHERE CLASSIFIED 07/22/2017 RIANNA BRADY GEAR DESIGN ENGINEER Ot K74.60 UNSPECIFIED CIRRHOSIS OF LIVER 07/22/2017 RIANNA BRADY GEAR DESIGN ENGINEER Ot N28.89 OTHER SPECIFIED DISORDERS OF KIDNEY AND 07/22/2017 CANDACE DOWNEY SIEBEL ADMINISTRATOR-C Ot B17.10 ACUTE HEPATITIS C WITHOUT HEPATIC COMA 07/22/2017 CANDACE DOWNEY SIEBEL ADMINISTRATOR-C Ot E11.22 TYPE 2 DIABETES MELLITUS W DIABETIC ENGINEERING DESIGN SUPERVISOR 07/22/2017 CANDACE DOWNEY SIEBEL ADMINISTRATOR-C Ot E78.5 HYPERLIPIDEMIA, UNSPECIFIED 07/22/2017 CANDACE DOWNEY SIEBEL ADMINISTRATOR-C Ot J44.9 CHRONIC OBSTRUCTIVE PULMONARY DISEASE, U 07/22/2017 CANDACE DOWNEY SIEBEL ADMINISTRATOR-C Ot K21.9 GASTRO-ESOPHAGEAL REFLUX DISEASE WITHOUT 07/22/2017 CANDACE DOWNEY SIEBEL ADMINISTRATOR-C Ot N18.3 CHRONIC KIDNEY DISEASE, STAGE 3 (MODERAT 07/24/2017 RIANNA BRADY GEAR DESIGN ENGINEER Ot M46.86 OTHER SPECIFIED INFLAMMATORY SPONDYLOPAT 07/24/2017 RIANNA BRADY GEAR DESIGN ENGINEER Ot M47.26 OTHER SPONDYLOSIS WITH RADICULOPATHY, MOIRA 07/24/2017 RIANNA BRADY GEAR DESIGN ENGINEER Ot M48.07 SPINAL STENOSIS, LUMBOSACRAL REGION 07/24/2017 RIANNA BRADY GEAR DESIGN ENGINEER Ot M51.17 INTVRT DISC DISORDERS W RADICULOPATHY, L 08/02/2017 RIANNA BRADY GEAR DESIGN ENGINEER Ot M46.86 OTHER SPECIFIED INFLAMMATORY SPONDYLOPAT 08/02/2017 RIANNA BRADY GEAR DESIGN ENGINEER Ot M47.26 OTHER SPONDYLOSIS WITH RADICULOPATHY, MOIRA 08/02/2017 RIANNA BRADY GEAR DESIGN ENGINEER Ot M48.07 SPINAL STENOSIS, LUMBOSACRAL REGION 08/02/2017 RIANNA BRADY GEAR DESIGN ENGINEER Ot M51.17 INTVRT DISC DISORDERS W RADICULOPATHY, L 08/03/2017 RIANNA BRADY GEAR DESIGN ENGINEER Ot M46.86 OTHER SPECIFIED INFLAMMATORY SPONDYLOPAT 08/03/2017 RIANNA BRADY GEAR DESIGN ENGINEER Ot M47.26 OTHER SPONDYLOSIS WITH RADICULOPATHY, MOIRA 08/03/2017 BRADY, RIANNA R GEAR DESIGN ENGINEER Ot M48.07 SPINAL STENOSIS, LUMBOSACRAL REGION 08/03/2017 RIANNA BRADY R GEAR DESIGN ENGINEER Ot M51.17 INTVRT DISC DISORDERS W RADICULOPATHY, L 09/30/2017 RIANNA BRADY R GEAR DESIGN ENGINEER Ot M46.86 OTHER SPECIFIED INFLAMMATORY SPONDYLOPAT 09/30/2017 RIANNA BRADY R GEAR DESIGN ENGINEER Ot M47.26 OTHER SPONDYLOSIS WITH RADICULOPATHY, MOIRA 09/30/2017 RIANNA BRADY R GEAR DESIGN ENGINEER Ot M48.07 SPINAL STENOSIS, LUMBOSACRAL REGION 09/30/2017 RIANNA BRADY GEAR DESIGN ENGINEER Ot M51.17 INTVRT DISC DISORDERS W RADICULOPATHY, L 10/26/2017 RIANNA BRADY R GEAR DESIGN ENGINEER Ot M46.86 OTHER SPECIFIED INFLAMMATORY SPONDYLOPAT 10/26/2017 RIANNA BRADY R GEAR DESIGN ENGINEER Ot M47.26 OTHER SPONDYLOSIS WITH RADICULOPATHY, MOIRA 10/26/2017 RIANNA BRADY R GEAR DESIGN ENGINEER Ot M48.07 SPINAL STENOSIS, LUMBOSACRAL REGION 10/26/2017 RIANNA BRADY GEAR DESIGN ENGINEER Ot M51.17 INTVRT DISC DISORDERS W RADICULOPATHY, L 02/13/2018 TERESA JOHNSON GEAR DESIGN ENGINEER Ot 789.09 ABDOMINAL PAIN, OTHER SPECIFIED SITE 02/13/2018 SAMIR COCHRAN DO Ot Z01.818 ENCOUNTER FOR OTHER PREPROCEDURAL EXAMIN 02/13/2018 RIANNA BRADY GEAR DESIGN ENGINEER Ot M47.26 OTHER SPONDYLOSIS WITH RADICULOPATHY, MOIRA 02/13/2018 RIANNA BRADY GEAR DESIGN ENGINEER Ot I86.8 VARICOSE VEINS OF OTHER SPECIFIED SITES 02/13/2018 RIANNA BRADY GEAR DESIGN ENGINEER Ot K74.60 UNSPECIFIED CIRRHOSIS OF LIVER 02/13/2018 RIANNA BRADY GEAR DESIGN ENGINEER Ot N28.89 OTHER SPECIFIED DISORDERS OF KIDNEY AND 02/13/2018 RIANNA BRADY GEAR DESIGN ENGINEER Ot R16.0 HEPATOMEGALY, NOT ELSEWHERE CLASSIFIED 02/13/2018 RIANNA BRADY GEAR DESIGN ENGINEER Ot R16.1 SPLENOMEGALY, NOT ELSEWHERE CLASSIFIED 02/13/2018 RIANNA BRADY R GEAR DESIGN ENGINEER Ot K74.60 UNSPECIFIED CIRRHOSIS OF LIVER 02/13/2018 RIANNA BRADY R GEAR DESIGN ENGINEER Ot N28.89 OTHER SPECIFIED DISORDERS OF KIDNEY AND 02/13/2018 CANDACE DOWNEY SIEBEL ADMINISTRATOR-C Ot B17.10 ACUTE HEPATITIS C WITHOUT HEPATIC COMA 02/13/2018 CANDACE DOWNEY SIEBEL ADMINISTRATOR-C Ot E11.22 TYPE 2 DIABETES MELLITUS W DIABETIC ENGINEERING DESIGN SUPERVISOR 02/13/2018 CANDACE DOWNEY SIEBEL ADMINISTRATOR-C Ot E78.5 HYPERLIPIDEMIA, UNSPECIFIED 02/13/2018 CANDACE DOWNEY SIEBEL ADMINISTRATOR-C Ot J44.9 CHRONIC OBSTRUCTIVE PULMONARY DISEASE, U 02/13/2018 CANDACE DOWNEY SIEBEL ADMINISTRATOR-C Ot K21.9 GASTRO-ESOPHAGEAL REFLUX DISEASE WITHOUT 02/13/2018 CANDACE DOWNEY ReneeShaunna SIEBEL ADMINISTRATOR-C Ot N18.3 CHRONIC KIDNEY DISEASE, STAGE 3 (MODERAT 02/13/2018 RIANNA BRADY GEAR DESIGN ENGINEER Ot M46.86 OTHER SPECIFIED INFLAMMATORY SPONDYLOPAT 02/13/2018 RIANNA BRADY GEAR DESIGN ENGINEER Ot M47.26 OTHER SPONDYLOSIS WITH RADICULOPATHY, MOIRA 02/13/2018 RIANNA BRADY GEAR DESIGN ENGINEER Ot M48.07 SPINAL STENOSIS, LUMBOSACRAL REGION 02/13/2018 RIANNA BRADY GEAR DESIGN ENGINEER Ot M51.17 INTVRT DISC DISORDERS W RADICULOPATHY, L 02/16/2018 SAL PALMA, GUSTAVO Yu Ot C22.8 MALIGNANT NEOPLASM OF LIVER, PRIMARY, UN Procedures Code Description [place] [address] ROUTINE VENIPUNCTURE 03/06/2013 61973 A1C (IN-HOUSE) 03/06/2013 68893 LIPID PANEL 03/06/2013 [id number] GFR CALC (RESULT ONLY) 03/06/2013 71042 CMP 03/06/2013 10052 TSH 03/06/2013 63663 CBC 03/06/2013 99514 ROUTINE VENIPUNCTURE 03/23/2013 97417 MICRO ALBUMIN-IN HOUSE 03/23/2013 43013 A1C (IN-HOUSE) 03/23/2013 14510 CMP 03/23/2013 21403 IRON SERUM 03/23/2013 62331 IRON BNDNG CAP 03/23/2013 8681200 GFR CALC (RESULT ONLY) 03/23/2013 83600 FERRITIN 03/23/2013 82852 HEPATITIS PROFILE 03/23/2013 9227459 HCV INDEX (RESULT ONLY) 03/23/2013 IRGROUP IRON GROUP (Iron,TIBC, Ferritin) 03/25/2013 OPHTHALMO SADIA ROSALES 03/25/2013 55975 PULMONARY FUNCTION TEST (IN- HOUSE) 04/06/2013 35018 RESPIRATORY FLOW VOLUME LOOP 04/06/2013 96704 PULMONARY EDUCATION 04/06/2013 40330 A1C (IN-HOUSE) 07/23/2013 2028F FOOT EXAM PERFORMED 07/23/2013 43579 ROUTINE VENIPUNCTURE 07/23/2013 34582 EYE EXAM PERFORMED 07/23/2013 0426248 GFR CALC (RESULT ONLY) 07/23/2013 35557 CMP 07/23/2013 69793 LIPID PANEL 10/23/2013 86113 A1C (IN-HOUSE) 10/23/2013 87913 ROUTINE VENIPUNCTURE 11/05/2013 48238 CMP 11/05/2013 6882149 GFR CALC (RESULT ONLY) 11/05/2013 04524 ROUTINE VENIPUNCTURE 01/28/2014 01922 CMP 01/28/2014 82488 A1C (IN-HOUSE) 01/28/2014 Results Test Result Range [...] 0.8-1.2 Prothrombin Time 10.5 sec 9.1-12.0 Thyroid [place] Profile - 07/20/16 12:24 TSH 4.490 uIU/mL [...] 0.0-0.1 Urinalysis, Complete - 08/23/16 14:05 Specific [place] 1.020 1.005-1.030 pH 6.0 5.0-7.5 Urine-Color Yellow [...] 0.0-0.1 Urinalysis, Complete - 12/29/16 11:14 Specific [place] 1.018 1.005-1.030 pH 6.5 5.0-7.5 Urine-Color Yellow [...] - 03/10/17 14:42 ABSOLUTE NEUTROPHILS 3759 cells/uL 9433-7544 ABSOLUTE MONOCYTES 209 cells/uL 200-950 ABSOLUTE EOSINOPHILS [...] - 09/01/17 13:45 ABSOLUTE NEUTROPHILS 5122 cells/uL 8658-6468 ABSOLUTE MONOCYTES 125 cells/uL 200-950 ABSOLUTE EOSINOPHILS [...] poor plasma bycoagulation assay 29 s 24-35 Bacterial blood culture - 02/09/18 14:25 Bacterial blood culture NG NRG Blood lactic acid measurement (moles/volume) - 02/09/18 15:04 Blood lactic acid measurement (moles/volume) 0.89 mmol/L 0.50-2.00 Bacterial blood culture - 02/09/18 15:04 Bacterial blood culture NG NRG Complete urinalysis with reflex to culture - [...] urinalysis with reflex to culture NO NRG Capillary blood glucose measurement by glucometer (mass/volume) - 02/09/18 19: 18 Capillary blood glucose measurement by glucometer (mass/volume) 195 mg/dL 70-110 Capillary blood glucose measurement by glucometer (mass/volume) - 02/10/18 05: 34 Capillary blood glucose measurement by glucometer (mass/volume) 111 mg/dL 70-110 Complete blood count (CBC) with automated white blood cell (WBC) differential - 02/10/18 06:15 Blood leukocytes automated count (number/volume) 5.1 10*3/uL 4.3-11.0 Blood erythrocytes automated count (number/volume) 4.59 10*6/uL 4.35-5.85 Venous blood hemoglobin measurement (mass/volume) 13.8 g/dL 13.3-17.7 Blood hematocrit (volume fraction) 42 % 40-54 Automated erythrocyte mean corpuscular volume 91 [foz_us] 80-99 Automated erythrocyte mean corpuscular hemoglobin (mass per erythrocyte) 30 pg 25-34 Automated erythrocyte mean corpuscular hemoglobin concentration measurement ( mass/volume) 33 g/dL 32-36 Automated erythrocyte distribution width ratio 14.1 % 10.0-14.5 Automated blood platelet count (count/volume) 107 10*3/uL 130-400 Automated blood platelet mean volume measurement 9.9 [foz_us] 7.4-10.4 Automated blood neutrophils/100 leukocytes 69 % 42-75 Automated blood lymphocytes/100 leukocytes 21 % 12-44 Blood monocytes/100 leukocytes 7 % 0-12 Automated blood eosinophils/100 leukocytes 3 % 0-10 Automated blood basophils/100 leukocytes 0 % 0-10 Blood neutrophils automated count (number/volume) 3.6 10*3 1.8-7.8 Blood lymphocytes automated count (number/volume) 1.1 10*3 1.0-4.0 Blood monocytes automated count (number/volume) 0.4 10*3 0.0-1.0 Automated eosinophil count 0.2 10*3/uL 0.0-0.3 Automated blood basophil count (count/volume) 0.0 10*3/uL 0.0-0.1 Comprehensive metabolic panel - 02/10/18 06:15 Serum or plasma sodium measurement (moles/volume) 137 mmol/L 135-145 Serum or plasma potassium measurement (moles/volume) 4.4 mmol/L 3.6-5.0 Serum or plasma chloride measurement (moles/volume) 106 mmol/L 98-107 Carbon dioxide 22 mmol/L 21-32 Serum or plasma anion gap determination (moles/volume) 9 mmol/L 5-14 Serum or plasma urea nitrogen measurement (mass/volume) 19 mg/dL 7-18 Serum or plasma creatinine measurement (mass/volume) 1.26 mg/dL 0.60-1.30 Serum or plasma urea nitrogen/creatinine mass ratio 15 NRG Serum or plasma creatinine measurement with calculation of estimated glomerular filtration rate 57 NRG Serum or plasma glucose measurement (mass/volume) 115 mg/dL 70-105 Serum or plasma calcium measurement (mass/volume) 9.0 mg/dL 8.5-10.1 Serum or plasma total bilirubin measurement (mass/volume) 1.2 mg/dL 0.1-1.0 Serum or plasma alkaline phosphatase measurement (enzymatic activity/volume) 228 U/L 40-136 Serum or plasma aspartate aminotransferase measurement (enzymatic activity/ volume) 61 U/L 5-34 Serum or plasma alanine aminotransferase measurement (enzymatic activity/volume ) 41 U/L 0-55 Serum or plasma protein measurement (mass/volume) 7.3 g/dL 6.4-8.2 Serum or plasma albumin measurement (mass/volume) 3.1 g/dL 3.2-4.5 CALCIUM CORRECTED 9.7 mg/dL 8.5-10.1 Capillary blood glucose measurement by glucometer (mass/volume) - 02/10/18 10: 47 Capillary blood glucose measurement by glucometer (mass/volume) 142 mg/dL 70-110 C DIFFICILE AG + TOXIN A/B. - 02/10/18 13:23 RESULTS NEGATIVE FOR ANTIGEN AND TOXIN A/B NR [id number] - 02/10/18 13:23 [id number] SEE COMMEN NRG QUANTITY OF GROWTH . NR Capillary blood glucose measurement by glucometer (mass/volume) - 02/10/18 15: 13 Capillary blood glucose measurement by glucometer (mass/volume) 198 mg/dL 70-110 Capillary blood glucose measurement by glucometer (mass/volume) - 02/10/18 19: 41 Capillary blood glucose measurement by glucometer (mass/volume) 151 mg/dL 70-110 Capillary blood glucose measurement by glucometer (mass/volume) - 02/11/18 05: 42 Capillary blood glucose measurement by glucometer (mass/volume) 144 mg/dL 70-110 Capillary blood glucose measurement by glucometer (mass/volume) - 02/11/18 10: 14 Capillary blood glucose measurement by glucometer (mass/volume) 144 mg/dL 70-110 Capillary blood glucose measurement by glucometer (mass/volume) - 02/11/18 14: 57 Capillary blood glucose measurement by glucometer (mass/volume) 183 mg/dL 70-110 Encounters ACCT No. Visit Date/Time Discharge Status Pt. Type Provider Facility Loc./Unit Complaint [id number] 01/28/2014 10:48:00 01/28/2014 23:59:59 CLS Outpatient SALAZAR DO, PASTORA K [id number] 01/28/2014 10:48:00 01/28/2014 23:59:59 CLS Outpatient PASTORA SALAZAR DO [id number] 10/23/2013 09:24:00 10/23/2013 23:59:59 CLS Outpatient PASTORA SALAZAR DO [id number] 10/23/2013 09:24:00 10/23/2013 23:59:59 CLS Outpatient PASTORA SALAZAR DO [id number] 07/23/2013 09:43:00 07/23/2013 23:59:59 CLS Outpatient SALAZAR DOPASTORA [id number] 04/24/2013 09:19:00 04/24/2013 23:59:59 CLS Outpatient PASTORA SALAZAR DO [id number] 04/06/2013 14:53:00 04/06/2013 23:59:59 CLS Outpatient PASTORA SALAZAR DO [id number] 03/23/2013 15:01:00 03/23/2013 23:59:59 CLS Outpatient PASTORA SALAZAR DO [id number] 03/06/2013 07:59:00 03/06/2013 23:59:59 CLS Outpatient PASTORA SALAZAR DO [id number] 03/05/2013 16:37:00 03/05/2013 23:59:59 CLS Outpatient LESTER WESTBROOK APRN [id number] 07/22/2016 16:07:00 Document Registration [id number] 12/30/2016 16:08:00 Document Registration [id number] 03/21/2016 07:05:00 Document Registration [id number] 02/13/2018 10:27:00 02/13/2018 15:44:00 DIS Outpatient GUSTAVO HUANG MD [facility] SDC HEPATOMEGALY [id number] 02/09/2018 17:02:00 02/11/2018 15:58:00 DIS Inpatient KAMILA TSANG MD [facility] 4TH RT LIVER MASS, ABD PAIN ASCITES [id number] 07/22/2017 11:08:00 07/22/2017 23:59:59 CLS Outpatient RIANNA BRADY APRN 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 RAD CKD STAGE 3 [id number] 10/30/2015 13:20:00 10/30/2015 23:59:59 CLS Outpatient RIANNA BRADY GEAR DESIGN ENGINEER [facility] RAD LESION OF LIVER [id number] 10/28/2015 07:24:00 10/28/2015 23:59:59 CLS Outpatient RIANNA BRADY GEAR DESIGN ENGINEER [facility] RAD RENAL MASS [id number] 10/24/2015 10:40:00 10/24/2015 23:59:59 CLS Outpatient RIANNA BRADY GEAR DESIGN ENGINEER [facility] RAD OSTEOARTHRITIS OF SPINE W/RADICULOPATHY [id number] 04/22/2015 09:33:00 04/22/2015 12:10:00 DIS Outpatient SAMIR COCHRAN DO [facility] SDC BLACK TARRY STOOLS [id number] 04/18/2015 05:42:00 04/18/2015 23:59:59 CLS Outpatient SAMIR COCHRAN DO [facility] PREOP BLACK TARRY STOOLS [id number] 11/14/2014 13:51:00 11/14/2014 23:59:59 CLS Outpatient TERESA JOHNSON GEAR DESIGN ENGINEER [facility] RAD RIGHT INGUINAL PAIN [id number] 08/24/2016 12:08:00 Document Registration [id number] 11/07/2017 10:00:00 11/07/2017 23:59:59 CLS Outpatient RIANNA BRADY [facility] [id number] 01/05/2018 10:20:00 Document Registration [id number] 09/01/2017 13:40:00 Document Registration [id number] 05/05/2017 11:40:00 Document Registration [id number] 04/19/2017 12:40:00 Document Registration [id number] 03/10/2017 14:00:00 Document Registration [id number] 12/29/2016 11:00:00 Document Registration
== END 2018-02-11 12:08 | disposition home or self-care (01) ==
LOC: ER 14:18 → UNDOADMIN 17:02 → 4TH 17:02 → UNDODISIN 02-11 15:58
PROVIDERS: ADMIT Family Medicine; ATTEND Family Medicine
DX: R16.0 Hepatomegaly, not elsewhere classified (principal); R19.7 Diarrhea, unspecified; N28.9 Disorder of kidney and ureter, unspecified; R18.8 Other ascites; K74.60 Unspecified cirrhosis of liver; K80.20 Calculus of gallbladder without cholecystitis without obstruction; E11.9 Type 2 diabetes mellitus without complications; I12.9 Hypertensive chronic kidney disease with stage 1 through stage 4 chronic kidney disease, or unspecified chronic kidney disease; N18.3 Chronic kidney disease, stage 3 (moderate); J43.9 Emphysema, unspecified; I25.10 Atherosclerotic heart disease of native coronary artery without angina pectoris; R91.8 Other nonspecific abnormal finding of lung field; N20.0 Calculus of kidney; I70.0 Atherosclerosis of aorta; Z86.19 Personal history of other infectious and parasitic diseases; Z85.528 Personal history of other malignant neoplasm of kidney; Z90.5 Acquired absence of kidney; Z79.84 Long term (current) use of oral hypoglycemic drugs; Z79.899 Other long term (current) drug therapy; Z87.891 Personal history of nicotine dependence; Z23 Encounter for immunization
CPT/HCPCS: 36415; 71250; 74176; 74181; 80053; 81000; 82140; 82962; 83605; 83735; 83880; 85025; 85610; 85730; 87040; 87324; 87328; 87329; 87449; 90686; 94640; 94760; G0378

== ENCOUNTER 2018-02-13 10:27 | Outpatient (CLI) | payer MEDICARE, MEDICAID ==
[2018-02-13] VITALS (15 sets, daily range): BP systolic 136–178; BP diastolic 79–112
[~2018-02-13] VITALS: Ht 167.6 cm; Wt 73.5 kg
[~2018-02-13 10:27] MED LIST changes: +ALBU18HF2 INH; +ALLO100T PO; +ASPI-586 PO; +CALC-250 PO; +FLUT1DIS26 INH; +GLIP5TAB26 PO; +LIDOCAINE 1% INJ 20 ML 20 ML VIAL INJ ONE; +LISI10TA2 PO; +OXYC-529 PO; +PANT40TA3 PO; +PIOG15TA67 PO
[2018-02-13] MEDS ORDERED: HYDROcodone/APAP 5 MG/325 MG (LORTAB) TAB PO PRN (11:45)
--- NOTE | 2018-02-13 12:30 | Diagnostic Imaging Report ---
INDICATION: Liver mass. The patient presents for CT-guided biopsy. TECHNIQUE: The patient was brought to the CT suite and placed on the table in the supine position. Axial imaging through the abdomen was performed to evaluate for an appropriate entry site. The right abdomen was prepped and draped in the usual sterile fashion. A small amount of 1% lidocaine was utilized for local anesthesia. An 18-gauge coaxial Temno needle was advanced to the low-density mass in the right lobe of the liver. Three core biopsies were obtained. A blood patch was injected during needle removal. Hemostasis was obtained using manual compression. The patient tolerated the procedure well and left the Department in stable condition. Images demonstrate appropriate needle position in the right lobe liver mass. Multiple gallstones are present. Multiple renal calculi are present on the right as well. IMPRESSION: Successful CT-guided biopsy of the dominant mass in the right lobe of the liver, as described. Pathology results are currently pending. Dictated by: Dictated on workstation # [id number]
--- NOTE | 2018-02-16 15:54 | Pre-Procedure Progress Note ---
Pre-Procedure Progress Note H&P Reviewed The H&P was reviewed, patient examined and no changes noted. Date H&P Reviewed: Feb 16, 2018 Time H&P Reviewed: 08:00 Pre-Procedure Diagnosis: Liver mass MERARY SALGADO MD Feb 16, 2018 15:54
== END 2018-02-13 15:44 | disposition home or self-care (01) ==
LOC: SDC 10:27
PROVIDERS: ATTEND Family Medicine
DX: C22.8 Malignant neoplasm of liver, primary, unspecified as to type (principal)
CPT/HCPCS: 77012; 88307

== ENCOUNTER 2018-03-07 10:03 | Outpatient (RCR) | payer MEDICARE, MEDICAID ==
[~2018-03-07 10:03] MED LIST changes: -LIDOCAINE 1% INJ 20 ML 20 ML VIAL INJ ONE
== END 2018-06-05 | disposition home or self-care (01) ==
LOC: ONC 10:03
PROVIDERS: ATTEND Internal Medicine Hematology & Oncology
DX: C22.0 Liver cell carcinoma (principal); D69.59 Other secondary thrombocytopenia; K74.60 Unspecified cirrhosis of liver; B19.20 Unspecified viral hepatitis C without hepatic coma; J44.9 Chronic obstructive pulmonary disease, unspecified; E11.9 Type 2 diabetes mellitus without complications; F17.210 Nicotine dependence, cigarettes, uncomplicated; Z85.528 Personal history of other malignant neoplasm of kidney; Z90.5 Acquired absence of kidney; Z79.82 Long term (current) use of aspirin; Z79.84 Long term (current) use of oral hypoglycemic drugs; Z79.899 Other long term (current) drug therapy
CPT/HCPCS: 99214